=== PATIENT | male | born 1945 | race Caucasian/White ===

== ENCOUNTER 2020-08-31 15:21 | Emergency (ER) | payer MEDICARE, MEDICAID, SELFPAY ==
[2020-08-31 17:39] VITALS: BP 132/75; PULSE 60; RESP 18; TEMP 36.6; O2SAT 97; BMI 29.9
--- NOTE | 2020-08-31 18:47 | XR_ITS ---
EXAMINATION: XR CHEST CLINICAL INFORMATION: Right upper back pain COMPARISON: 12/26/2017 TECHNIQUE: Frontal view of the chest was obtained. FINDINGS: No focal consolidation, pulmonary edema, or pleural effusion. Stable cardiomediastinal silhouette. IMPRESSION: No acute cardiac pulmonary findings. Redemonstration of a calcified granuloma at the left lung base.
--- NOTE | 2020-08-31 18:47 | ECG_ITS ---
Test Reason : FALL Blood Pressure : / mmHG Vent. Rate : 071 BPM Atrial Rate : 071 BPM P-R Int : 174 ms QRS Dur : 156 ms QT Int : 450 ms P-R-T Axes : 062 037 199 degrees QTc Int : 489 ms Normal sinus rhythm with sinus arrhythmia Left bundle branch block Abnormal ECG When compared with ECG of 26-DEC-2017 15:53, No significant changes seen Referred By: Jacquie Carpenter Electronically Signed By:LIMA BRUCE MD
--- NOTE | 2020-08-31 18:48 | CT_ITS ---
EXAMINATION: CT ABDOMEN AND PELVIS WITHOUT CONTRAST CLINICAL INFORMATION: Right upper quadrant pain. COMPARISON: None TECHNIQUE: Multidetector volumetric imaging was performed from the superior aspect of the liver through the pubic symphysis. Sagittal and coronal reformatted images were obtained on the technologist's workstation. This CT examination was performed using dose optimization techniques as appropriate, variously including the following: *Automated exposure control. *Adjustment of mA and/or kV according to patient size (this includes techniques or standardized protocols for targeted exams where dose is matched to indication/reason for exam; i.e. extremities or head). *Use of iterative reconstruction technique. DLP: 476 mGy-cm FINDINGS: LUNG BASES: The visualized lung bases are unremarkable. LIVER, GALLBLADDER, AND BILIARY TREE: The liver is normal in size, shape, and attenuation. No focal hepatic lesion or biliary ductal dilatation is present. The gallbladder contains a single calcified 3 mm stone dependent in the region of the neck but is otherwise unremarkable with no evidence of wall thickening or obvious pericholecystic inflammatory changes. PANCREAS: Unremarkable. SPLEEN: Unremarkable. ADRENAL GLANDS: Unremarkable. KIDNEYS AND URETERS: The kidneys are normal in size, shape, and attenuation. No hydronephrosis, hydroureter, or calculi seen. No perinephric stranding. BLADDER: There is a tiny left posterior bladder diverticulum. The bladder is mildly trabeculated. No bladder masses are seen. GASTROINTESTINAL TRACT: Small hiatal hernia is present. Scattered colonic diverticula are present without diverticulitis. The small and large bowel are unremarkable. The appendix is unremarkable. ABDOMINAL WALL: No significant hernia is appreciated. LYMPH NODES: No retroperitoneal lymphadenopathy. VASCULAR: Unremarkable. PELVIC VISCERA: Three markers are present in the prostate. The seminal vesicles appear normal. OSSEOUS STRUCTURES: Mild degenerative change is present in the spine. No bony destructive lesions seen. IMPRESSION: 1. A single radiopaque gallstone is present without evidence of cholecystitis. 2. Incidental note made of tiny left bladder diverticulum, small hiatal hernia and colonic diverticulosis without diverticulitis.
--- NOTE | 2020-08-31 18:52 | ED.ABDPAIN ---
HPI - Abdominal Pain General Chief Complaint: General Medical Stated Complaint: right side pain Time Seen by Provider: 08/31/20 18:46 Source: patient Mode of arrival: ambulatory Limitations: no limitations History of Present Illness HPI narrative: 74-year-old male presents with gradual onset of right-sided chest pain and right-sided upper back pain, with right upper quadrant abdominal pain. This pain is been constant since Onset last night. the pain does not change with positioning, and has not been relieved and radiates into his entire abdomen starting on the right upper quadrant and moving outward. he denies palpitations, shortness of breath, shortness breath on exertion, dysuria, hematuria, nausea, vomiting, diarrhea, constipation, fevers, chills, denies illicit drug use and tobacco use. He does not describe a headache, Trauma, falls, changes in vision, dizziness, weakness, and lightheadedness. MD elicited complaint: abdominal pain and other ( right upper chest pain, right back pain) Pertinent past history: none Onset (ago): day(s) ( 1) Pain Consistency: constant Location: chest, RUQ and other ( right back) Severity: moderate Pain scale (0-10): 6 Quality: aching and sharp Exacerbating factors: eating and movement Relieving factors: nothing Associated symptoms: denies other symptoms Related Data Previous Rx's Medication Instructions Recorded ondansetron HCl [Zofran] 4 mg PO Q8H PRN #10 tab 08/31/20 oxycodone 5 mg PO Q8H PRN #10 tab 08/31/20 Allergies Allergy/AdvReac Type Severity Reaction Status Date / Time pineapple [PINEAPPLE] Allergy Mild RASH Verified 08/29/20 14:38 Pork/Porcine Containing Allergy Mild ABDOMINAL Verified 08/29/20 14:38 Products PAIN, [PORK/PORCINE CONTAINING VOMITING PRODUCTS] codeine [CODEINE] Allergy Unknown UNK Verified 08/29/20 14:38 Review of Systems Review of Systems Constitutional: No Weight loss, No Fever, No Chills, No Night Sweats, No Fatigue, No Malaise ENT/Mouth: No Hearing loss, No Ear Pain, No Nasal Congestion, No Sinus Pain, No Hoarseness, No sore throat, No Rhinorrhea, No Swallowing Difficulty Eyes: No Eye Pain, No Swelling, No Redness, No Foreign Body, No Discharge, No Vision Changes Cardiovascular: positive right-sided chest pain, right-sided back pain, No SOB, No Dyspnea on Exertion, No Orthopnea, No Edema, No Palpitations Respiratory: No Cough, No Sputum, No Wheezing, No Smoke Exposure, No Dyspnea Gastrointestinal: Positive right upper quadrant pain radiating outward to the rest of abdomen, no N, V, D, constipation, No Hematochezia, No Melena Genitourinary: no irregular bleeding, No Dysuria, No Urinary Frequency, No Hematuria, No Urinary Incontinence, No Urgency, No Flank Pain, No Urinary Flow Changes, No Hesitancy Musculoskeletal: No joint pain, No Myalgias, No Joint Swelling Skin: No Skin Lesions, No rash Neuro: No Weakness, No Numbness, No Paresthesias, No Loss of Consciousness, No Dizziness, No Headache Psych: No Anxiety/Panic, No Depression, No SI/HI/AH/VH, No Social Issues, Heme/Lymph: No Bruising, No Bleeding,No Lymphadenopathy Endocrine: No Polyuria, No Polydipsia, No Temperature Intolerance Physical Exam Vital Signs: Vital Signs: Vital Signs Temp Pulse Resp BP Pulse Ox 08/31/20 21:38 97.9 F 64 18 145/77 H 99 08/31/20 17:39 97.9 F 60 18 132/75 97 Body Mass Index 29.9 Appearance: Alert. Oriented X3. No acute distress. Eyes: Pupils equal, round and reactive to light. ENT: Pharynx normal. Neck: Normal inspection. Neck supple. CVS: Normal heart rate and rhythm. Pulses normal. Respiratory: No respiratory distress. Breath sounds normal. Abdomen: mildly distended, right upper quadrant pain and tenderness on deep palpation. Skin: Skin warm and dry. Normal skin color. Normal skin turgor. Extremities: No lower extremity edema. No lower extremity edema. Neuro: Oriented X 3. No motor deficit. No sensory deficit. Course Course Course Narrative: Patient describes right upper quadrant, right chest, right back pain, has positive Dodson sign, negative psoas obturator and rebound tenderness. We will order CT scan of the abdomen to rule out acute abdomen, cholecystitis, cholelithiasis. Reevaluation(s) Reevaluation #1: BUN 20, creatinine 1.47, mild kidney injury, we will resuscitate with fluids. Troponin is 12.6, bilirubin 1.4. Patient does have known kidney disease, uses furosemide daily for bilateral lower extremity edema. CT does show cholelithiasis without cholecystitis. Detailed discussion with patient regarding plan of care for him to follow-up with surgery as an outpatient. He did verbalize understanding of and agrees to plan of care. workforce management analyst utilized for all correspondence. Google translate utilized for discharge instructions. Time: 20:02 MDM - Abdominal Pain Differential Diagnosis Differential diagnosis: Likely abdominal pain, aortic dissection, acute appendicitis, calculus of kidney and pancreatitis Differential diagnosis narrative:: ACS, pneumonia, cholecystitis, cholelithiasis Medical Records Attestation: I reviewed the patient's medical records. Lab Data Attestation: I reviewed the patient's lab results. Result diagrams: 08/31/20 19:08/31/20 19: Labs: Lab Results 08/31/20 08/31/20 08/31/20 Range/Units 19:02 19: 19:02 WBC 7.9 (4.8-10.8) X10*3/uL RBC 5.26 (4.60-5.80) X10*6/uL Hgb 14.3 (14.0-18.0) g/dl Hct 44.3 (42-52) % MCV 84.2 (80-98) fL MCH 27.2 (27.0-33.0) pg MCHC 32.3 (31.0-36.0) g/dl RDW 14.6 (11.0-16.0) % Plt Count 243 (160-400) X10*3/uL MPV 10.9 (9.4-12.4) fL Immature Gran % (Auto) 0.3 (0.0-0.4) % Neut % (Auto) 66.6 (45-73) % Lymph % (Auto) 22.5 (20-40) % [place] % (Auto) 8.2 (2-11) % Eos % (Auto) 1.6 (0-4) % Baso % (Auto) 0.8 (0-2) % Lymph # (Auto) 1.8 (1.2-4.9) X10*3/uL [place] # (Auto) 0.7 (0.1-1.2) X10*3/uL Eos # (Auto) 0.1 (0.0-0.4) X10*3/uL Baso # (Auto) 0.1 (0.0-0.2) X10*3/uL Abs Immat Gran (auto) 0.02 (0.00-0.03) X10*3/uL Absolute Neuts (auto) 5.3 (2.0-8.3) X10*3/uL Absolute Nucleated RBC 0.000 (0.0-0.012) X10*3/uL Nucleated RBC % (auto) 0.0 (0.0-0.2) /100WBC PT 14.1 H (10.8-13.0) SEC INR 1.2 H (0.9-1.1) Sodium 141 (135-145) mmol/L Potassium 3.9 (3.3-5.1) mmol/l Chloride 104 (96-108) mmol/L Carbon Dioxide 30 H (22-29) mmol/L Anion Gap 11 L (12-20) BUN 20 H (9-16) mg/dL Creatinine 1.47 H (0.5-1.4) mg/dL Estim Creat Clear Calc 43.3 Estimated GFR 47 Random Glucose 125 H (60-115) mg/dL Calcium 10.1 (8.4-10.2) mg/dL Magnesium 1.9 (1.6-2.6) mg/dL Total Bilirubin 1.4 H (0.0-1.0) mg/dL Direct Bilirubin 0.6 H (0.0-0.5) mg/dL AST 24 (5-37) U/L ALT 31 (0-40) U/L Alkaline Phosphatase 78 (39-117) U/L Troponin I High Sens (<3.5-35.0) ng/L Total Protein 6.8 (6.5-8.0) g/dL Albumin 4.2 (3.5-5.0) g/dL Lipase 39 (8-78) U/L 08/31/20 Range/Units 19:02 WBC (4.8-10.8) X10*3/uL RBC (4.60-5.80) X10*6/uL Hgb (14.0-18.0) g/dl Hct (42-52) % MCV (80-98) fL MCH (27.0-33.0) pg MCHC (31.0-36.0) g/dl RDW (11.0-16.0) % Plt Count (160-400) X10*3/uL MPV (9.4-12.4) fL Immature Gran % (Auto) (0.0-0.4) % Neut % (Auto) (45-73) % Lymph % (Auto) (20-40) % [place] % (Auto) (2-11) % Eos % (Auto) (0-4) % Baso % (Auto) (0-2) % Lymph # (Auto) (1.2-4.9) X10*3/uL [place] # (Auto) (0.1-1.2) X10*3/uL Eos # (Auto) (0.0-0.4) X10*3/uL Baso # (Auto) (0.0-0.2) X10*3/uL Abs Immat Gran (auto) (0.00-0.03) X10*3/uL Absolute Neuts (auto) (2.0-8.3) X10*3/uL Absolute Nucleated RBC (0.0-0.012) X10*3/uL Nucleated RBC % (auto) (0.0-0.2) /100WBC PT (10.8-13.0) SEC INR (0.9-1.1) Sodium (135-145) mmol/L Potassium (3.3-5.1) mmol/l Chloride (96-108) mmol/L Carbon Dioxide (22-29) mmol/L Anion Gap (12-20) BUN (9-16) mg/dL Creatinine (0.5-1.4) mg/dL Estim Creat Clear Calc Estimated GFR Random Glucose (60-115) mg/dL Calcium (8.4-10.2) mg/dL Magnesium (1.6-2.6) mg/dL Total Bilirubin (0.0-1.0) mg/dL Direct Bilirubin (0.0-0.5) mg/dL AST (5-37) U/L ALT (0-40) U/L Alkaline Phosphatase (39-117) U/L Troponin I High Sens 12.6 (<3.5-35.0) ng/L Total Protein (6.5-8.0) g/dL Albumin (3.5-5.0) g/dL Lipase (8-78) U/L Imaging Data CT scan - abdomen: Attestation: I personally reviewed and interpreted this imaging study as follows: Radiologist's impression: FINDINGS: LUNG BASES: The visualized lung bases are unremarkable. LIVER, GALLBLADDER, AND BILIARY TREE: The liver is normal in size, shape, and attenuation. No focal hepatic lesion or biliary ductal dilatation is present. The gallbladder contains a single calcified 3 mm stone dependent in the region of the neck but is otherwise unremarkable with no evidence of wall thickening or obvious pericholecystic inflammatory changes. PANCREAS: Unremarkable. SPLEEN: Unremarkable. ADRENAL GLANDS: Unremarkable. KIDNEYS AND URETERS: The kidneys are normal in size, shape, and attenuation. No hydronephrosis, hydroureter, or calculi seen. No perinephric stranding. BLADDER: There is a tiny left posterior bladder diverticulum. The bladder is mildly trabeculated. No bladder masses are seen. GASTROINTESTINAL TRACT: Small hiatal hernia is present. Scattered colonic diverticula are present without diverticulitis. The small and large bowel are unremarkable. The appendix is unremarkable. ABDOMINAL WALL: No significant hernia is appreciated. LYMPH NODES: No retroperitoneal lymphadenopathy. VASCULAR: Unremarkable. PELVIC VISCERA: Three markers are present in the prostate. The seminal vesicles appear normal. OSSEOUS STRUCTURES: Mild degenerative change is present in the spine. No bony destructive lesions seen. IMPRESSION: 1. A single radiopaque gallstone is present without evidence of cholecystitis. 2. Incidental note made of tiny left bladder diverticulum, small hiatal hernia and colonic diverticulosis without diverticulitis. Chest x-ray: Attestation: I personally reviewed and interpreted this imaging study as follows: Radiologist's impression: FINDINGS: No focal consolidation, pulmonary edema, or pleural effusion. Stable cardiomediastinal silhouette. IMPRESSION: No acute cardiac pulmonary findings. Redemonstration of a calcified granuloma at the left lung base. ECG Data Attestation: I personally reviewed and interpreted this ECG as follows: ECG interpretation date: 08/31/20 ECG interpretation time: 18:50 Prior ECG tracings: available for review Interpretation: Vent. Rate : 071 BPM Atrial Rate : 071 BPM P-R Int : 174 ms QRS Dur : 156 ms QT Int : 450 ms P-R-T Axes : 062 037 199 degrees QTc Int : 489 ms Normal sinus rhythm with sinus arrhythmia Left bundle branch block Abnormal ECG When compared with ECG of 26-DEC-2017 15:53, T wave inversion more evident in Inferior leads Discharge Plan Discharge Clinical Impression: Cholelithiasis Qualifiers: Cholelithiasis location: gallbladder Cholecystitis presence: without cholecystitis Biliary obstruction: without biliary obstruction Qualified Code(s): K80.20 - Calculus of gallbladder without cholecystitis without obstruction Patient Disposition: Home, Self-Care Instructions: Gallstones (ED) Additional Instructions: you were evaluated for right upper quadrant, right chest, and right back pain. CT scan of the abdomen shows a gallstone in the gallbladder without inflammation of the gallbladder. Please follow-up with with Dr. Colon. Call and make an appointment as you may need to have your gallbladder surgically removed. We prescribed oxycodone for pain management. This medication is a narcotic and has high risk for addiction and abuse. Do not drive or operate machinery while taking this medication. This medication may increased risk for falls, cause drowsiness, and constipation. Drink plenty of fluids. Use Colace or MiraLax as needed to keep stool soft. We prescribe Zofran. This medication is for nausea. Please take this medication as directed. If pain worsens or if you cannot control your nausea or vomiting please return to the emergency department immediately. Thank you for choosing this emergency department for evaluation. Please follow-up with primary care physician as needed. Return to the emergency department for any new, concerning, or worsening symptoms. Prescriptions: New oxycodone 5 mg tablet 5 mg PO Q8H PRN (Reason: pain) Qty: 10 RF: 0 ondansetron HCl [Zofran] 4 mg tablet 4 mg PO Q8H PRN (Reason: nausea and vomiting) Qty: 10 RF: 0 Referrals: Philippe Colon MD [Physician] - 2 days ( cholelithiasis without cholecystitis.) Interventions: ED Discharge Assessment Last Done: 08/31/20 22:17 Discharge Date/Time: 08/31/20 22:26 [facility] Past Medical History Attestation statement: The following information was validated with the patient. Medical History Prostate CA Stroke Surgical History History of colonoscopy History of elbow surgery History of inguinal hernia repair Hx of appendectomy S/P TURP Family History Family History Father Medical history unknown Mother Alcoholic cirrhosis CVD (cardiovascular disease) Brother Prostate cancer Maternal Uncle Prostate cancer Social History Social History Advance Directives: No Advance Directives Information Provided: No
[2020-08-31 19:06] LABS: MANUAL DIFF FLAG NO
[2020-08-31 19:08] LABS: Basophils Absolute Auto 0.1 X10*3/uL (0.0-0.2); Basophils Percent Auto 0.8 % (0-2); Eosinophils Absolute Auto 0.1 X10*3/uL (0.0-0.4); Eosinophils Percent Auto 1.6 % (0-4); Hematocrit 44.3 % (42-52); Hemoglobin 14.3 g/dl (14.0-18.0); Imm Gran Abs Auto 0.02 X10*3/uL (0.00-0.03); Imm Gran Pct Auto 0.3 % (0.0-0.4); Lymphocytes Absolute Auto 1.8 X10*3/uL (1.2-4.9); Lymphocytes Percent Auto 22.5 % (20-40); Mean Corpuscular HGB Conc 32.3 g/dl (31.0-36.0); Mean Corpuscular Hemoglobin 27.2 pg (27.0-33.0); Mean Corpuscular Volume 84.2 fL (80-98); Mean Platelet Volume 10.9 fL (9.4-12.4); Monocytes Absolute Auto 0.7 X10*3/uL (0.1-1.2); Monocytes Percent Auto 8.2 % (2-11); Neutrophils Absolute Auto 5.3 X10*3/uL (2.0-8.3); Neutrophils Percent Auto 66.6 % (45-73); Platelet Count 243 X10*3/uL (160-400); Red Blood Count 5.26 X10*6/uL (4.60-5.80); Red Cell Distribution Width 14.6 % (11.0-16.0); White Blood Count 7.9 X10*3/uL (4.8-10.8)
[2020-08-31 19:13] LABS: INTERNATIONAL NORM RATIO 1.2 (0.9-1.1); Prothrombin Time 14.1 SEC (10.8-13.0)
[2020-08-31 19:35] LABS: Alanine Aminotransferase 31 U/L (0-40); Albumin Level 4.2 g/dL (3.5-5.0); Alkaline Phosphatase 78 U/L (39-117); Anion Gap 11 (12-20); Aspartate Amino Transferase 24 U/L (5-37); Bilirubin Direct 0.6 mg/dL (0.0-0.5); Bilirubin Total 1.4 mg/dL (0.0-1.0); Blood Urea Nitrogen 20 mg/dL (9-16); Calcium 10.1 mg/dL (8.4-10.2); Carbon Dioxide 30 mmol/L (22-29); Chloride 104 mmol/L (96-108); Creatinine Clr Calc Pharmacy 43.3; Estimated Glomerular Filt Rate 47; Glucose Random 125 mg/dL (60-115); Lipase 39 U/L (8-78); Magnesium 1.9 mg/dL (1.6-2.6); Potassium 3.9 mmol/l (3.3-5.1); Sodium 141 mmol/L (135-145); Total Protein 6.8 g/dL (6.5-8.0)
[2020-08-31 19:37] LABS: Troponin-I High Sensitivity 12.6 ng/L (<3.5-35.0)
[2020-08-31] MEDS: 0.9 % Sodium Chloride 1,000 ML 999 ML IVCONT (20:41)
[2020-08-31] MEDS: oxyCODONE HCl Immed Release 5 MG TABLET PO (21:32)
[2020-08-31 21:38] VITALS: BP 145/77; PULSE 64; RESP 18; TEMP 36.6; O2SAT 99
== END 2020-08-31 22:26 | disposition home or self-care (01) ==
PROVIDERS: Nurse Practitioner Family; Emergency Provider Emergency Medicine Emergency Medical Services; PCP Internal Medicine
DX: K80.50 Calculus of bile duct without cholangitis or cholecystitis without obstruction (principal); I10 Essential (primary) hypertension; K21.9 Gastro-esophageal reflux disease without esophagitis; Z85.46 Personal history of malignant neoplasm of prostate; Z79.899 Other long term (current) drug therapy
CPT/HCPCS: 36415; 71045; 74176; 80048; 80076; 83690; 83735; 84484; 85025; 85610; 93005; 96360; 99283; 99284

== ENCOUNTER → 2020-09-02 09:01 | Outpatient (REF) | payer MEDICARE, MEDICAID, SELFPAY ==
--- NOTE | 2020-09-02 09:30 | CA_ITS ---
Transthoracic Echocardiogram Patient (Last, First, Middle): Christiano Jensen, Gender: Male Date of : 1945 Age: 74 Procedure Date: 09/02/2020 Procedure Type: Transthoracic Echocardiogram Location: OP Height: 165.1 cm Weight: 77.11 kg BSA: 1.85 m2 Heart Rate: bpm BP: 98 / 53 mmHg Performance Manager: SHAN Referring MD: Sg Horton MD Symptoms: Short of breath, LBBB Conclusions: - The left ventricular systolic function is normal. The visually estimated ejection fraction is between 55-60%. - No obvious valvular pathology seen on this study. Findings Left Ventricle Normal left ventricular cavity size. There is mildly increased left ventricular wall thickness. The left ventricular systolic function is normal. The visually estimated ejection fraction is between 55-60%. There is no evidence of regional wall motion abnormalities. Evidence suggests grade I (mild) diastolic dysfunction. Right Ventricle Normal right ventricular cavity size and systolic function. Atria The left atrium is normal in size. The right atrium is normal in size. Aortic Valve There is a normal trileaflet aortic valve. There is no aortic valve stenosis. There is no aortic valve regurgitation. Mitral Valve The mitral valve appears normal. There is trace mitral valve regurgitation. There is no mitral valve stenosis. Pulmonic Valve The pulmonic valve was not well visualized. Tricuspid Valve Normal tricuspid valve structure. There is trace tricuspid valve regurgitation. Tricuspid regurgitation envelope is inadequate for calculation of right ventricular systolic pressure. Great Vessels The aortic annulus, sinuses of valsalva, and asc aorta are normal in size. Venous The inferior vena cava is normal in size and collapses greater than 50% with inspiration. Pericardium/Pleural There is no evidence of pericardial effusion. Prior Study Comparison No change compared to prior study dated: 08/27/2019. Recommendations, Care & Conclusions No obvious valvular pathology seen on this study. Measurements 2D Linear Measurements IVSd: 1.38 0.6-0.9/0.6-1.0 cm LVIDd: 4.19 3.9-5.3/4.2-5.9 cm LVIDs: 3.01 2.0-3.6 cm LVPWd: 1.21 0.7-1.1 cm Ao Root: 3.06 2.1-3.5 cm LV Mass: 247.48 67-162/88-224 g LVOT Diam: 2.01 3.0+(-)1.3 cm Mitral Valve MV Pk E: 0.52 MV PK A: 0.65 MV Decel Time: 338.20 E/A: 0.80 E'Lateral: 0.09 E'Medial: 0.06 E/E' Med: 7.40 E/E' Lat: 7.40 Decel [place]: 1.54 Aortic Valve AoV Pk Greg: 1.11 AoV Pk Grad: 4.93 LVOT LVOT Pk Greg: 1.03 LVOT Mn Greg: 0.65 LVOT VTI: 0.18 LVOT Pk Grad: 4.26 LVOT Mn Grad: 2.10 LVOT Diam: 2.01 LVOT Area: 3.16 Diastolic Function MV Pk E: 0.52 MV Pk A: 0.65 E/A: 0.80 E'Medial: 0.06 E/E' Med: 7.40 E' Laterial: 0.09 E/E' Lat: 7.40 Tricuspid Valve RA Press: 3.00 Great Vessels Aorta Ao Root-2D: 3.06 2.0-3.7 cm Ao Asc: 3.32 2.1-3.4 cm Updated in Other Vendor System with Status of Final Sg Horton MD electronically signed on 09/03/2020 11:52:54 AM with status of Final
== END ==
LOC: HO.CARD 09:01
PROVIDERS: PCP Internal Medicine; Visit Provider Internal Medicine
DX: R06.02 Shortness of breath (principal); I44.7 Left bundle-branch block, unspecified
CPT/HCPCS: 93306

== ENCOUNTER → 2020-09-03 09:01 | Outpatient (BNVA) | payer MEDICARE, MEDICAID, SELFPAY | PROVIDERS: PCP Internal Medicine; Referring Provider Internal Medicine; Visit Provider Surgery | DX: K80.20 Calculus of gallbladder without cholecystitis without obstruction (principal); K42.9 Umbilical hernia without obstruction or gangrene | CPT/HCPCS: 99204 ==

== ENCOUNTER 2020-09-09 10:10 | Day surgery (SDC) | payer MEDICARE, MEDICAID, SELFPAY ==
--- NOTE | 2020-09-08 15:40 | HO.ANESPROP2 ---
Documented by User: Za Ott 09/08/20 15:45 HPI - Anesthesia Eval Consult details Narrative: 74 yo M for lap corinne PMFSH Past Medical History Medical History BPH (benign prostatic hyperplasia) Cholelithiasis Essential hypertension Gallstone GERD (gastroesophageal reflux disease) Leg edema Lumbar degenerative disc disease Prostate CA Pure hypercholesterolemia Stroke Umbilical hernia Urinary incontinence Family History Family History Father Medical history unknown Mother Alcoholic cirrhosis CVD (cardiovascular disease) Brother Prostate cancer Maternal Uncle Prostate cancer Surgical History Surgical History History of colonoscopy History of elbow surgery History of inguinal hernia repair Hx of appendectomy S/P TURP Social History Social History Smoking Status: Never smoker Use of substances other than those prescribed or required for medical reasons: No Advance Directives: No Advance Directives Information Provided: Yes Meds Allergies Allergy/AdvReac Type Severity Reaction Status Date / Time pineapple [PINEAPPLE] Allergy Mild RASH Verified 09/03/20 09:18 Pork/Porcine Containing Allergy Mild ABDOMINAL Verified 09/03/20 09:18 Products PAIN, [PORK/PORCINE CONTAINING VOMITING PRODUCTS] codeine [CODEINE] Allergy Unknown UNK Verified 09/03/20 09:18 Home Medications Medication Instructions Recorded Confirmed Type atorvastatin 40 mg tablet mg PO 09/01/20 09/01/20 History cyclobenzaprine 10 mg tablet mg PO 09/01/20 09/01/20 History finasteride 5 mg tablet mg PO 09/01/20 09/01/20 History furosemide 20 mg tablet mg PO 09/01/20 09/01/20 History lisinopril 30 mg tablet mg PO 09/01/20 09/01/20 History oxybutynin chloride 10 mg 10 mg PO DAILY 09/01/20 09/01/20 History tablet,extended release 24 hr tamsulosin 0.4 mg capsule mg PO 09/01/20 09/01/20 History ondansetron HCl 4 mg tablet 4 mg PO Q8H 09/03/20 History oxycodone 5 mg tablet mg PO 09/03/20 History Exam Exam Date and Time: September 08, 2020 1540 Pertinent Lab Results Pertinent Lab Results: Laboratory Tests 08/31/20 08/31/20 19:02 19:02 WBC 7.9 Hgb 14.3 Hct 44.3 Plt Count 243 Sodium 141 Potassium 3.9 Chloride 104 BUN 20 H Creatinine 1.47 H Narrative Narrative: ECHO 08/2019: LVEF 50-55%, paradoxical septal motion with LBBB Stress 2019: without anginal symptoms, without arrythmia, normotensive response, nondiagnostic EKG (no nuclear images avail) EKG DOS Assessment and Plan Assessment Anesthesia Assessment: Chart Reviewed Documented by User: Norah Mcfadden 09/09/20 11:03 PMFSH Past Medical History Medical History BPH (benign prostatic hyperplasia) Cholelithiasis Essential hypertension Gallstone GERD (gastroesophageal reflux disease) Leg edema Lumbar degenerative disc disease Prostate CA Pure hypercholesterolemia Stroke Umbilical hernia Urinary incontinence Family History Family History Father Medical history unknown Mother Alcoholic cirrhosis CVD (cardiovascular disease) Brother Prostate cancer Maternal Uncle Prostate cancer Surgical History Surgical History History of colonoscopy History of elbow surgery History of inguinal hernia repair Hx of appendectomy S/P TURP Social History Social History Smoking Status: Never smoker Use of substances other than those prescribed or required for medical reasons: No Advance Directives: No Advance Directives Information Provided: Yes Meds Allergies Allergy/AdvReac Type Severity Reaction Status Date / Time pineapple [PINEAPPLE] Allergy Mild RASH Verified 09/03/20 09:18 Pork/Porcine Containing Allergy Mild ABDOMINAL Verified 09/03/20 09:18 Products PAIN, [PORK/PORCINE CONTAINING VOMITING PRODUCTS] codeine [CODEINE] Allergy Unknown UNK Verified 09/03/20 09:18 Home Medications Medication Instructions Recorded Confirmed Type atorvastatin 40 mg tablet mg PO 09/01/20 09/01/20 History cyclobenzaprine 10 mg tablet mg PO 09/01/20 09/01/20 History finasteride 5 mg tablet mg PO 09/01/20 09/01/20 History furosemide 20 mg tablet mg PO 09/01/20 09/01/20 History lisinopril 30 mg tablet mg PO 09/01/20 09/01/20 History oxybutynin chloride 10 mg 10 mg PO DAILY 09/01/20 09/01/20 History tablet,extended release 24 hr tamsulosin 0.4 mg capsule mg PO 09/01/20 09/01/20 History ondansetron HCl 4 mg tablet 4 mg PO Q8H 09/03/20 History oxycodone 5 mg tablet mg PO 09/03/20 History Exam Airway Mallampati Class: II TM Dist: >3cm Neck ROM: Limited Denture: Lower Partial: Upper Heart: RRR Lungs: CTA Assessment and Plan Assessment Anesthesia Assessment: Anesthesia Plan Discussed and Chart Reviewed Final Anesthetic Review NPO: Yes ASA Class: III Final Preanesthetic Review: No Changes in Pt Med Stat, Meds/Allgs Chart Reviewed, Consent Obtained/Reviewed and Anes Risks/Benef Reviewed Patient Risk: Intermediate Procedure Risk: Intermediate Assessment/Block/Sedation in SS: Assess/Block/Sedation-SS Anesthetic Plan Anesthetic Plan: GA Disposition: Standard PACU
[2020-09-09] VITALS (9 sets, daily range): BP systolic 107–136; BP diastolic 68–75; PULSE 59–77; RESP 16–20; TEMP 36.4–36.6; O2SAT 96–99; BMI 28.3
--- NOTE | 2020-09-09 | ECG_ITS ---
Test Reason : CARDIAC HX HTN Blood Pressure : / mmHG Vent. Rate : 056 BPM Atrial Rate : 056 BPM P-R Int : 202 ms QRS Dur : 154 ms QT Int : 448 ms P-R-T Axes : 079 006 160 degrees QTc Int : 432 ms Sinus bradycardia Left bundle branch block Abnormal ECG When compared with ECG of 31-AUG-2020 18:50, Heart rate has decreased Referred By: Za Ott Electronically Signed By:LIMA BRUCE MD
--- NOTE | 2020-09-09 10:53 | MHC.SHP ---
Pre-Procedural Eval Section B Chief Complaint: Gallstone Allergies: Allergies Allergy/AdvReac Type Severity Reaction Status Date / Time pineapple [PINEAPPLE] Allergy Mild RASH Verified 09/03/20 09:18 Pork/Porcine Containing Allergy Mild ABDOMINAL Verified 09/03/20 09:18 Products PAIN, [PORK/PORCINE CONTAINING VOMITING PRODUCTS] codeine [CODEINE] Allergy Unknown UNK Verified 09/03/20 09:18 Plan Patient has been examined and remains a candidate for the planned procedure
--- NOTE | 2020-09-09 11:03 | HO.ANESPROP2 ---
FORM[facility]LY [facility], [facility] Past Medical History Medical History BPH (benign prostatic hyperplasia) Cholelithiasis Essential hypertension Gallstone GERD (gastroesophageal reflux disease) Leg edema Lumbar degenerative disc disease Prostate CA Pure hypercholesterolemia Stroke Umbilical hernia Urinary incontinence Family History Family History Father Medical history unknown Mother Alcoholic cirrhosis CVD (cardiovascular disease) Brother Prostate cancer Maternal Uncle Prostate cancer Surgical History Surgical History History of colonoscopy History of elbow surgery History of inguinal hernia repair Hx of appendectomy S/P TURP Social History Social History Smoking Status: Never smoker Use of substances other than those prescribed or required for medical reasons: No Advance Directives: No Advance Directives Information Provided: Yes Meds Allergies Allergy/AdvReac Type Severity Reaction Status Date / Time pineapple [PINEAPPLE] Allergy Mild RASH Verified 09/03/20 09:18 Pork/Porcine Containing Allergy Mild ABDOMINAL Verified 09/03/20 09:18 Products PAIN, [PORK/PORCINE CONTAINING VOMITING PRODUCTS] codeine [CODEINE] Allergy Unknown UNK Verified 09/03/20 09:18 Home Medications Medication Instructions Recorded Confirmed Type atorvastatin 40 mg tablet mg PO 09/01/20 09/01/20 History cyclobenzaprine 10 mg tablet mg PO 09/01/20 09/01/20 History finasteride 5 mg tablet mg PO 09/01/20 09/01/20 History furosemide 20 mg tablet mg PO 09/01/20 09/01/20 History lisinopril 30 mg tablet mg PO 09/01/20 09/01/20 History oxybutynin chloride 10 mg 10 mg PO DAILY 09/01/20 09/01/20 History tablet,extended release 24 hr tamsulosin 0.4 mg capsule mg PO 09/01/20 09/01/20 History ondansetron HCl 4 mg tablet 4 mg PO Q8H 09/03/20 History oxycodone 5 mg tablet mg PO 09/03/20 History Exam Exam Date and Time: September 09, 2020 1103 Height,Weight and Vital Signs: Height 5 ft 5 in Weight 77.111 kg Last Vital Signs Temp 97.8 F 09/09/20 10:56 Pulse 62 09/09/20 10:56 Resp 18 09/09/20 10:56 BP 136/75 09/09/20 10:56 Pulse Ox 99 09/09/20 10:56 Assessment and Plan Assessment Anesthesia Assessment: Anesthesia Plan Discussed and Chart Reviewed Final Anesthetic Review NPO: Yes ASA Class: III Final Preanesthetic Review: No Changes in Pt Med Stat, Consent Obtained/Reviewed and Anes Risks/Benef Reviewed Patient Risk: Intermediate Procedure Risk: Intermediate Assessment/Block/Sedation in SS: Assess/Block/Sedation-SS Anesthetic Plan Anesthetic Plan: GA Disposition: Standard PACU
[2020-09-09] MEDS: Lactated Ringers 1,000 ML 100 ML IVCONT (11:16)
--- NOTE | 2020-09-09 11:36 | HO.ANESPROP2 ---
[facility] Past Medical History Medical History BPH (benign prostatic hyperplasia) Cholelithiasis Essential hypertension Gallstone GERD (gastroesophageal reflux disease) Leg edema Lumbar degenerative disc disease Prostate CA Pure hypercholesterolemia Stroke Umbilical hernia Urinary incontinence Family History Family History Father Medical history unknown Mother Alcoholic cirrhosis CVD (cardiovascular disease) Brother Prostate cancer Maternal Uncle Prostate cancer Surgical History Surgical History History of colonoscopy History of elbow surgery History of inguinal hernia repair Hx of appendectomy S/P TURP Social History Social History Smoking Status: Never smoker Use of substances other than those prescribed or required for medical reasons: No Advance Directives: No Advance Directives Information Provided: Yes Meds Allergies Allergy/AdvReac Type Severity Reaction Status Date / Time pineapple [PINEAPPLE] Allergy Mild RASH Verified 09/03/20 09:18 Pork/Porcine Containing Allergy Mild ABDOMINAL Verified 09/03/20 09:18 Products PAIN, [PORK/PORCINE CONTAINING VOMITING PRODUCTS] codeine [CODEINE] Allergy Unknown UNK Verified 09/03/20 09:18 Home Medications Medication Instructions Recorded Confirmed Type atorvastatin 40 mg tablet mg PO 09/01/20 09/01/20 History cyclobenzaprine 10 mg tablet mg PO 09/01/20 09/01/20 History finasteride 5 mg tablet mg PO 09/01/20 09/01/20 History furosemide 20 mg tablet mg PO 09/01/20 09/01/20 History lisinopril 30 mg tablet mg PO 09/01/20 09/01/20 History oxybutynin chloride 10 mg 10 mg PO DAILY 09/01/20 09/01/20 History tablet,extended release 24 hr tamsulosin 0.4 mg capsule mg PO 09/01/20 09/01/20 History ondansetron HCl 4 mg tablet 4 mg PO Q8H 09/03/20 History oxycodone 5 mg tablet mg PO 09/03/20 History Exam Exam Date and Time: September 09, 2020 1136 Height,Weight and Vital Signs: Height 5 ft 5 in Weight 77.111 kg Last Vital Signs Temp 97.8 F 09/09/20 10:56 Pulse 62 09/09/20 10:56 Resp 18 09/09/20 10:56 BP 136/75 09/09/20 10:56 Pulse Ox 99 09/09/20 10:56 Assessment and Plan Assessment Anesthesia Assessment: Anesthesia Plan Discussed and Chart Reviewed Final Anesthetic Review NPO: Yes ASA Class: III Final Preanesthetic Review: No Changes in Pt Med Stat, Meds/Allgs Chart Reviewed, Consent Obtained/Reviewed and Anes Risks/Benef Reviewed Patient Risk: Intermediate Procedure Risk: Intermediate Assessment/Block/Sedation in SS: Assess/Block/Sedation-SS Anesthetic Plan Anesthetic Plan: GA Disposition: Standard PACU
--- NOTE | 2020-09-09 12:28 | PM.OP ---
Brief Operative Note Date of procedure: 09/09/20 Pre-op diagnosis: gallstones Post-op diagnosis: same Procedure: lap cholecystectomy Surgeon: Philippe Colon MD Anesthesia: GETA Emergency Department Physician: Esther Schmidt Estimated blood loss (mL): 25 Pathology: other (gallbladder) Condition: stable Disposition: PACU
--- NOTE | 2020-09-09 13:55 | OP_ITS ---
SURGEON: Philippe Colon MD INDICATIONS: The patient is a 74-year-old male, who has had right upper quadrant pain with imaging studies showing gallstones without cholecystitis. In view of the symptoms with the gallbladder disease as the likely etiology, he wanted to proceed with cholecystectomy. He understood the technique of laparoscopic cholecystectomy, the possibility of converting to open. He is aware of the risks, benefits, and alternatives. He had given consent. His family was involved with the decision making. PREOPERATIVE DIAGNOSIS: Gallstones, symptomatic. POSTOPERATIVE DIAGNOSIS: Gallstones, symptomatic Umbilical hernia PROCEDURE PERFORMED: Laparoscopic cholecystectomy and repair of umbilical hernia ESTIMATED BLOOD LOSS: COMPLICATIONS: ANESTHESIA: ASSISTANTS: Esther Schmidt PA-C. SPECIMENS: DESCRIPTION OF PROCEDURE: He was brought to the operating room, placed supine on the table under general anesthesia via endotracheal tube. The abdomen was prepped and draped in usual sterile fashion. A surgical time-out was done. The patient received Cefotan 2 g IV preoperatively. The patient also had hernia on the umbilicus. Therefore, decided to go through this hernia for my Roosevelt port. I made a short supraumbilical incision using blade #15. This was carried down to full-thickness skin and subcutaneous fat and I proceeded to identify the hernia sac. We lifted the umbilicus off the sac with sharp dissection and carefully dissected the sac sharply off the rest of the subcutaneous layer down to the fascial defect. We dissected the adhesions of the sac off the fascial edges until we were able to completely reduce this. The hernia was about 1.5 cm. I then inserted the Roosevelt port through this hernia. The patient was placed in head-up [id number] position. A 5/12 mm port introduced through a small incision in the epigastric area below the subcostal margin. A 5 mm port was introduced through a small incision below the subcostal margin along the anterior axillary line and the midclavicular line. Graspers were placed through these working ports. The patient was placed in at this point was head-up and [id number] position. We reflected the omentum and bowel loops away from the right upper quadrant until I was able to visualize the fundus of the gallbladder. A grasper applied on this and this was used to retract the gallbladder cephalad. By doing so, we were able to expose the anterior wall of the gallbladder and the path was visualized. Another grasper was placed on this and this was used to retract the gallbladder laterally. At this point, therefore, the gallbladder was being retracted in a cephalad and lateral fashion to put the cystic duct on stretch. We carefully dissected the cystic duct with the [place] dissector to define its confluence of the neck of the gallbladder. We stripped all fiber and fatty tissue around this area. By doing so, we were able to carefully achieve a critical view of the hepatocystic triangle. There were no other structures, except for what appeared to be a thin receptor mill representative of the cystic artery. With the confluence of the neck of the gallbladder towards the cystic duct confirmed, applied clips on the cystic duct with 2 clips being applied distally. The cystic duct was then transected between clips using Endo scissors. I applied clips again on the cystic artery and this was transected between clips as well. We retracted the gallbladder from the liver bed was carefully dissected across the hilum with blunt dissection until we were able to reach the interface of the gallbladder wall and the liver bed. I incised the peritoneum of the gallbladder using electrocautery spatula and proceeded to define a plane of dissection between the gallbladder and liver bed using a combination of blunt dissection with the tip of the spatula as well as electrocautery itself. We proceeded to separate the gallbladder from the liver bed with this technique all the way to the fundus until the entire gallbladder was completely . The gallbladder was retrieved through an Endobag through the umbilical incision. We had switched the camera port at this point. We switched the camera port back into the umbilicus. We lifted the liver edge and examined the liver bed. There was a little bit of small oozing area that we cauterized and achieved hemostasis. I examined all four quadrants and there was no other pathology except for adhesions in the right lower quadrant. We examined the area of dissection and subhepatic space. The clips were intact. There was no evidence of any bleeding or any bile leak. There was no evidence of any bowel injury. Once hemostasis was confirmed, proceeded to desufflate the port sites. All ports were removed. The umbilical port being removed last. The fascia of the umbilical incisions were closed with [id number] Dexon 0 stitch in effect closing the hernia defect as well.. Skinclosure was achieved in all incisions using Dexon 4-0 subcuticular running sutures. Steri-Strips and dressings were applied. All incisions were infiltrated with Marcaine 0.5% for postop analgesia. The procedure was completed. The patient tolerated the procedure well. There were no complications noted. Initial and final counts of sponges and instruments were correct. Estimated blood loss was about 20 mL. The patient was extubated without difficulty in the operating room and transferred to recovery room with stable vital signs. MD NORMA Naik/YINKA / [id number] MTDD
== END 2020-09-09 14:00 | disposition home or self-care (01) ==
PROVIDERS: PCP Internal Medicine; Visit Provider Surgery
PROC: 0FT44ZZ Resection of Gallbladder, Percutaneous Endoscopic Approach (ICD-10-PCS; CPT 47562; principal; 2020-09-09 13:00)
DX: K42.9 Umbilical hernia without obstruction or gangrene (principal); K80.20 Calculus of gallbladder without cholecystitis without obstruction
CPT/HCPCS: 49585; 47562; 88304; 93005; J1100; J2405; J3010

== ENCOUNTER → 2020-09-22 08:46 | Outpatient (BNVA) | payer MEDICARE, MEDICAID, SELFPAY | PROVIDERS: PCP Internal Medicine; Visit Provider Surgery | DX: I44.7 Left bundle-branch block, unspecified (principal); I10 Essential (primary) hypertension; E78.5 Hyperlipidemia, unspecified; R60.0 Localized edema; Z79.899 Other long term (current) drug therapy; Z09 Encounter for follow-up examination after completed treatment for conditions other than malignant neoplasm; Z87.19 Personal history of other diseases of the digestive system; Z90.49 Acquired absence of other specified parts of digestive tract | CPT/HCPCS: 93005; 99212 ==

== ENCOUNTER → 2020-12-11 10:08 | Outpatient (BNV) | payer MEDICARE, MEDICAID, SELFPAY | PROVIDERS: PCP Internal Medicine; Visit Provider Internal Medicine Medical Oncology | DX: C61 Malignant neoplasm of prostate (principal) | CPT/HCPCS: 99212; 99213; 99214 ==

== ENCOUNTER 2020-12-18 08:09 | Outpatient (REF) | payer MEDICARE, MEDICAID, SELFPAY ==
[2020-12-18 09:27] LABS: Prostate Specific Antigen 0.17 ng/mL (<0.05-4.0)
== END 2020-12-18 08:10 | disposition home or self-care (01) ==
LOC: HO.LAB 08:09
PROVIDERS: PCP Internal Medicine; Visit Provider Urology
DX: Z12.5 Encounter for screening for malignant neoplasm of prostate (principal)
CPT/HCPCS: 36415; 84153

== ENCOUNTER → 2020-12-25 09:00 | Outpatient (BNVA) | payer MEDICARE, MEDICAID, SELFPAY | PROVIDERS: PCP Internal Medicine; Visit Provider Urology | DX: C61 Malignant neoplasm of prostate (principal); N40.0 Benign prostatic hyperplasia without lower urinary tract symptoms | CPT/HCPCS: 51798; 99212 ==

== ENCOUNTER → 2021-04-15 11:44 | Outpatient (BNVA) | payer MEDICARE, MEDICAID, SELFPAY | PROVIDERS: PCP Internal Medicine; Referring Provider Internal Medicine; Visit Provider Nurse Practitioner Family ==

== ENCOUNTER 2021-04-29 07:54 | Outpatient (REF) | payer MEDICARE, MEDICAID, SELFPAY ==
--- NOTE | ~2021-04-29 | US_ITS ---
EXAMINATION: US ABDOMEN COMPLETE CLINICAL INFORMATION: Abdominal distention (gaseous). COMPARISON: CT abdomen and pelvis without contrast dated 08/31/2020. Ultrasound abdomen complete dated 12/26/2017 and 08/19/2017. TECHNIQUE: Real-time imaging of the abdominal viscera. Technically difficult study secondary to bowel gas. FINDINGS: PANCREAS: The pancreas is obscured by overlying gas. ABDOMINAL AORTA: The proximal, mid, and distal segments are normal in caliber. INFERIOR VENA CAVA: Visualized portions are normal. LIVER: The liver is small size. The liver contour is normal. Parenchymal echogenicity is normal. No focal hepatic lesion. There is no intrahepatic biliary duct dilatation seen. GALLBLADDER: Surgically absent. COMMON BILE DUCT: CBD not visualized. RIGHT KIDNEY: Normal. No hydronephrosis. No renal calculi or focal parenchymal lesions. The kidney measures 9.3 cm in maximum dimension. LEFT KIDNEY: Normal. No hydronephrosis. No renal calculi or focal parenchymal lesions. The kidney measures 9.5 cm in maximum dimension. SPLEEN: Normal. The spleen measures 10.3 cm in maximum dimension. FREE FLUID: None. US/US abdomen complete IMPRESSION: Small liver without focal lesion. The rest of the abdominal ultrasound is unremarkable.
== END 2021-04-29 07:55 | disposition home or self-care (01) ==
LOC: HO.US 07:54
PROVIDERS: Visit Provider Nurse Practitioner Family
DX: C61 Malignant neoplasm of prostate (principal); R14.0 Abdominal distension (gaseous); R60.0 Localized edema
CPT/HCPCS: 76700

== ENCOUNTER 2021-05-11 07:51 | Outpatient (REF) | payer MEDICARE, MEDICAID, SELFPAY ==
[2021-05-11 11:40] LABS: B Type Natriuretic Peptide 37 pg/mL (<100)
[2021-05-11 11:49] LABS: Alanine Aminotransferase 31 U/L (0-40); Albumin Level 3.9 g/dL (3.5-5.0); Alkaline Phosphatase 74 U/L (39-117); Anion Gap 13 (12-20); Aspartate Amino Transferase 28 U/L (5-37); Bilirubin Total 1.2 mg/dL (0.0-1.0); Blood Urea Nitrogen 19 mg/dL (9-16); Calcium 8.8 mg/dL (8.4-10.2); Carbon Dioxide 27 mmol/L (22-29); Chloride 107 mmol/L (96-108); Cholesterol 153 mg/dL; Estimated Glomerular Filt Rate 52; Glucose Random 90 mg/dL (60-115); HDL Cholesterol 51 mg/dL; LDL Cholesterol Calculated 86 mg/dl; Potassium 4.3 mmol/L (3.3-5.1); Sodium 143 mmol/L (135-145); Total Protein 6.4 g/dL (6.5-8.0); Triglycerides 84 mg/dL
== END 2021-05-11 07:52 | disposition home or self-care (01) ==
LOC: HO.HMGCLDS 07:51
PROVIDERS: PCP Internal Medicine; Visit Provider Nurse Practitioner Family
DX: E78.00 Pure hypercholesterolemia, unspecified (principal); I10 Essential (primary) hypertension; R14.0 Abdominal distension (gaseous); R60.0 Localized edema; E78.5 Hyperlipidemia, unspecified
CPT/HCPCS: 36415; 80053; 80061; 83880

== ENCOUNTER → 2021-05-12 10:08 | Outpatient (REF) | payer MEDICARE, MEDICAID, SELFPAY ==
--- NOTE | 2021-05-12 10:10 | CA_ITS ---
Transthoracic Echocardiogram Patient (Last, First, Middle): Christiano Jensen, Gender: Male Date of : 1945 Age: 75 Procedure Date: 05/12/2021 Procedure Type: Transthoracic Echocardiogram Location: OP Height: 165.1 cm Weight: 81.65 kg BSA: 1.89 m2 Heart Rate: bpm BP: 140 / 90 mmHg Cafe Worker: BRANDON Referring MD: Shira Chang GAME ARTIST-C Symptoms: I44.7 - Left bundle-branch block, unspecified Study Quality: Technically Difficult ECG Rhythm: Sinus Conclusions: - The left ventricular systolic function is mildly decreased. The calculated ejection fraction is 46% by biplane method. - No obvious valvular pathology seen on this study. Findings Left Ventricle Normal left ventricular cavity size. There is mildly increased left ventricular wall thickness. The left ventricular systolic function is mildly decreased. The calculated ejection fraction is 46% by biplane method. There is mild global hypokinesis. E/E prime ratio is between 8 and 15 consistent with indeterminate filling pressures. Evidence suggests grade I (mild) diastolic dysfunction. Right Ventricle Normal right ventricular cavity size and systolic function. Atria The left atrium is normal in size. The right atrium is normal in size. Aortic Valve The aortic valve was not well visualized. The aortic valve structure and function is likely normal. There is no aortic valve stenosis. There is no aortic valve regurgitation. Mitral Valve The mitral valve appears normal. There is no mitral valve regurgitation. There is no mitral valve stenosis. Pulmonic Valve The pulmonic valve was not well visualized. Tricuspid Valve Normal tricuspid valve structure. There is no tricuspid valve regurgitation. The pulmonary artery systolic pressure is normal. Great Vessels The aortic annulus, sinuses of valsalva, and aortic arch are normal in size. Venous The inferior vena cava is normal in size and collapses greater than 50% with inspiration. Pericardium/Pleural There is no evidence of pericardial effusion. Prior Study Comparison Changes noted compared to prior study dated: 09/02/2020. LVEF lower than prior study. Recommendations, Care & Conclusions No obvious valvular pathology seen on this study. Measurements M-Mode Liner Measurements Normals - Women/Men AOV Cusps: 2.10 1.5-2.6 cm/m2 2D Linear Measurements IVSd: 1.07 0.6-0.9/0.6-1.0 cm LVIDd: 4.75 3.9-5.3/4.2-5.9 cm LVIDd Index: 2.51 2.4-3.2/2.2-3.1 cm/m2 LVIDs: 4.15 2.0-3.6 cm LVPWd: 1.05 0.7-1.1 cm Ao Root: 3.20 2.1-3.5 cm LA Diam: 2.90 2.7-3.8/3.0-4.0 cm LAIDs Index: 1.53 1.5-2.3 cm/m2 LV Mass: 225.75 67-162/88-224 g LV Mass Index: 119.45 43-95/49-115 g/m2 LVOT Diam: 2.10 3.0+(-)1.3 cm 2D Systolic Function EF 4C: 46.30 >55% EF 2C: 42.50 >55% EF BiP: 45.70 >55% Mitral Valve MV Pk E: 0.78 MV PK A: 0.79 MV Decel Time: 297.00 E/A: 1.00 E'Lateral: 9.03 E'Medial: 6.53 E/E' Med: 11.90 E/E' Lat: 8.60 PHT: 87.00 MVA PHT: 2.53 Decel [place]: 2.62 Aortic Valve AoV Pk Greg: 1.21 AoV Mn Greg: 0.86 AoV VTI: 0.26 AoV Pk Grad: 6.00 Aov Mn Grad: 3.00 ARTIS Cont.VTI: 2.48 LVOT LVOT Pk Greg: 0.89 LVOT Mn Greg: 0.63 LVOT VTI: 0.19 LVOT Pk Grad: 3.00 LVOT Mn Grad: 2.00 LVOT Diam: 2.10 LVOT Area: 3.46 Diastolic Function MV Pk E: 0.78 MV Pk A: 0.79 E/A: 1.00 E'Medial: 6.53 E/E' Med: 11.90 E' Laterial: 9.03 E/E' Lat: 8.60 Tricuspid Valve RA Press: 3.00 Great Vessels Aorta Ao Root-2D: 3.20 2.0-3.7 cm Ao Asc: 3.20 2.1-3.4 cm Pulmonary Valve PV Pk Greg: 1.24 Peak PV Grad: 6.00 Updated in Other Vendor System with Status of Final Sg Horton MD electronically signed on 05/12/2021 1:08:47 PM with status of Final
== END ==
LOC: HO.CARD 10:08
PROVIDERS: Visit Provider Nurse Practitioner Family
DX: I10 Essential (primary) hypertension (principal); I44.7 Left bundle-branch block, unspecified; R14.0 Abdominal distension (gaseous)
CPT/HCPCS: 93005; 93306; 99212

== ENCOUNTER → 2021-05-18 09:08 | Outpatient (BNVA) | payer MEDICARE, MEDICAID, SELFPAY | PROVIDERS: PCP Internal Medicine; Referring Provider Internal Medicine; Visit Provider Internal Medicine | DX: I11.0 Hypertensive heart disease with heart failure (principal); I50.32 Chronic diastolic (congestive) heart failure; I44.7 Left bundle-branch block, unspecified; E78.5 Hyperlipidemia, unspecified | CPT/HCPCS: 99212 ==

== ENCOUNTER → 2021-05-26 10:55 | Outpatient (REF) | payer MEDICARE, MEDICAID, SELFPAY | LOC: HO.SL 10:55 | PROVIDERS: PCP Internal Medicine; Visit Provider Internal Medicine | DX: G47.33 Obstructive sleep apnea (adult) (pediatric) (principal); I50.32 Chronic diastolic (congestive) heart failure | CPT/HCPCS: 95806 ==

== ENCOUNTER → 2021-06-25 08:31 | Outpatient (BNVA) | payer MEDICARE, MEDICAID, SELFPAY | PROVIDERS: PCP Internal Medicine; Visit Provider Urology | DX: C61 Malignant neoplasm of prostate (principal); N40.0 Benign prostatic hyperplasia without lower urinary tract symptoms | CPT/HCPCS: 51798; 99212 ==

== ENCOUNTER → 2021-09-23 09:37 | Outpatient (BNVA) | payer MEDICARE, MEDICAID, SELFPAY | PROVIDERS: PCP Internal Medicine; Referring Provider Internal Medicine; Visit Provider Internal Medicine | DX: I11.0 Hypertensive heart disease with heart failure (principal); I50.32 Chronic diastolic (congestive) heart failure; I44.7 Left bundle-branch block, unspecified; E78.5 Hyperlipidemia, unspecified; G47.33 Obstructive sleep apnea (adult) (pediatric) | CPT/HCPCS: 93005; 99212 ==

== ENCOUNTER → 2021-10-26 10:33 | Outpatient (BNVA) | payer MEDICARE, MEDICAID, SELFPAY | PROVIDERS: PCP Internal Medicine; Visit Provider Internal Medicine | DX: G47.33 Obstructive sleep apnea (adult) (pediatric) (principal); E66.9 Obesity, unspecified; I50.32 Chronic diastolic (congestive) heart failure | CPT/HCPCS: 99202 ==

== ENCOUNTER 2021-12-02 13:35 | Outpatient (REF) | payer MEDICARE, MEDICAID, SELFPAY ==
[2021-12-02 14:56] LABS: Binax Internal Control QC Valid; Binax Now Covid-19 Ag Negative (Negative)
== END 2021-12-02 13:36 | disposition home or self-care (01) ==
LOC: HO.LAB 13:35
PROVIDERS: Visit Provider Internal Medicine
DX: Z20.822 Contact with and (suspected) exposure to COVID-19 (principal)
CPT/HCPCS: C9803

== ENCOUNTER 2021-12-21 07:02 | Outpatient (REF) | payer MEDICARE, MEDICAID, SELFPAY ==
[2021-12-21 11:44] LABS: MANUAL DIFF FLAG NO
[2021-12-21 11:52] LABS: Basophils Absolute Auto 0.1 X10*3/uL (0.0-0.2); Basophils Percent Auto 1.4 % (0-2); Eosinophils Absolute Auto 0.3 X10*3/uL (0.0-0.4); Eosinophils Percent Auto 4.6 % (0-4); Hematocrit 46.7 % (42.0-52.0); Hemoglobin 14.3 g/dl (14.0-18.0); Imm Gran Abs Auto 0.02 X10*3/uL (0.00-0.03); Imm Gran Pct Auto 0.3 % (0.0-0.4); Lymphocytes Absolute Auto 2.1 X10*3/uL (1.2-4.9); Mean Corpuscular HGB Conc 30.6 g/dl (31.0-36.0); Mean Corpuscular Hemoglobin 25.7 pg (27.0-33.0); Mean Corpuscular Volume 83.8 fL (80.0-98.0); Mean Platelet Volume 11.6 fL (9.4-12.4); Monocytes Absolute Auto 0.7 X10*3/uL (0.1-1.2); Monocytes Percent Auto 10.9 % (2-11); Neutrophils Absolute Auto 3.3 x10*3/uL (2.0-8.3); Neutrophils Percent Auto 50.8 % (45-73); Platelet Count 193 X10*3/uL (160-400); Red Blood Count 5.57 X10*6/uL (4.60-5.80); Red Cell Distribution Width 15.5 % (11.0-16.0); White Blood Count 6.5 X10*3/uL (4.8-10.8)
[2021-12-21 12:07] LABS: Alanine Aminotransferase 47 U/L (0-40); Albumin Level 4.2 g/dL (3.5-5.0); Alkaline Phosphatase 76 U/L (39-117); Anion Gap 11 (12-20); Aspartate Amino Transferase 34 U/L (5-37); Bilirubin Total 1.3 mg/dL (0.0-1.0); Blood Urea Nitrogen 19 mg/dL (9-16); Calcium 9.6 mg/dL (8.4-10.2); Carbon Dioxide 31 mmol/L (22-29); Chloride 105 mmol/L (96-108); Cholesterol 157 mg/dL; Estimated Glomerular Filt Rate 46; Glucose Fasting 96 mg/dL (60-99); HDL Cholesterol 46 mg/dL; LDL Cholesterol Calculated 92 mg/dl; Sodium 143 mmol/L (135-145); Triglycerides 97 mg/dL
[2021-12-21 12:30] LABS: Prostate Specific Antigen 0.22 ng/mL (<0.05-4.0)
== END 2021-12-21 07:03 | disposition home or self-care (01) ==
LOC: HO.HMGCLDS 07:02
PROVIDERS: Absent Provider Urology; Visit Provider Internal Medicine
DX: E78.5 Hyperlipidemia, unspecified (principal); E66.9 Obesity, unspecified; D64.9 Anemia, unspecified; C61 Malignant neoplasm of prostate; Z12.5 Encounter for screening for malignant neoplasm of prostate
CPT/HCPCS: 36415; 80053; 80061; 84153; 85025

== ENCOUNTER → 2021-12-25 08:40 | Outpatient (BNVA) | payer MEDICARE, MEDICAID, SELFPAY | PROVIDERS: Visit Provider Urology | DX: Z13.89 Encounter for screening for other disorder (principal) ==

== ENCOUNTER → 2022-01-15 12:10 | Outpatient (BNVA) | payer MEDICARE, MEDICAID, SELFPAY | PROVIDERS: PCP Internal Medicine; Visit Provider Urology | CPT/HCPCS: Q3014 ==

== ENCOUNTER → 2022-01-27 09:40 | Outpatient (BNVA) | payer MEDICARE, MEDICAID, SELFPAY | PROVIDERS: PCP Internal Medicine; Visit Provider Internal Medicine | DX: G47.33 Obstructive sleep apnea (adult) (pediatric) (principal); E66.9 Obesity, unspecified; Z68.31 Body mass index [BMI] 31.0-31.9, adult | CPT/HCPCS: 99212 ==

== ENCOUNTER → 2022-02-03 13:04 | Outpatient (BNVA) | payer MEDICARE, MEDICAID, SELFPAY | PROVIDERS: PCP Internal Medicine; Referring Provider Internal Medicine; Visit Provider Internal Medicine | DX: I44.7 Left bundle-branch block, unspecified (principal); I50.32 Chronic diastolic (congestive) heart failure; M79.89 Other specified soft tissue disorders; G47.33 Obstructive sleep apnea (adult) (pediatric); I10 Essential (primary) hypertension; E78.5 Hyperlipidemia, unspecified; E78.00 Pure hypercholesterolemia, unspecified; Z88.6 Allergy status to analgesic agent; Z91.014 Allergy to mammalian meats; Z91.018 Allergy to other foods; Z79.899 Other long term (current) drug therapy | CPT/HCPCS: 99212 ==

== ENCOUNTER → 2022-03-05 08:16 | Outpatient (REF) | payer MEDICARE, MEDICAID, SELFPAY ==
--- NOTE | 2022-03-05 08:45 | CA_ITS ---
Transthoracic Echocardiogram Patient (Last, First, Middle): Christiano Jensen, Gender: Male Date of : 1945 Age: 76 Procedure Date: 03/05/2022 Procedure Type: Transthoracic Echocardiogram Location: OP Height: 165.1 cm Weight: 81.65 kg BSA: 1.89 m2 Heart Rate: bpm BP: 122 / 70 mmHg Percher: Referring MD: Sg Horton MD Symptoms: I44.7 - Left bundle-branch block, unspecified Study Quality: Fair ECG Rhythm: Sinus, LBBB Conclusions: - Normal left ventricular cavity size. There is mildly increased left ventricular wall thickness. The left ventricular systolic function is mildly decreased. The visually estimated ejection fraction is between 40-45%. - Normal right ventricular cavity size and systolic function. Findings Left Ventricle Normal left ventricular cavity size. There is mildly increased left ventricular wall thickness. The left ventricular systolic function is mildly decreased. The visually estimated ejection fraction is between 40-45%. There is mild global hypokinesis. There is paradoxical septal motion consistent with a left bundle branch block. Diastolic function is indeterminate on the basis of available data. Right Ventricle Normal right ventricular cavity size and systolic function. Atria The left atrium is normal in size. Aortic Valve The aortic valve structure and function is likely normal. There is no aortic valve stenosis. There is no aortic valve regurgitation. Mitral Valve Normal mitral valve structure and function. There is no mitral valve regurgitation. There is no mitral valve stenosis. Pulmonic Valve The pulmonic valve was not well visualized. Tricuspid Valve Normal tricuspid valve structure and function. There is no tricuspid valve regurgitation. Tricuspid regurgitation envelope is inadequate for calculation of right ventricular systolic pressure. Normal right atrial pressure. Great Vessels All visible segments of the aorta are normal in size. The pulmonary artery was not well visualized. Venous The inferior vena cava is normal in size and collapses greater than 50% with inspiration. Pericardium/Pleural There is no evidence of pericardial effusion. Prior Study Comparison No significant change compared to prior study. Measurements 2D Linear Measurements IVSd: 1.20 0.6-0.9/0.6-1.0 cm LVIDd: 4.32 3.9-5.3/4.2-5.9 cm LVIDd Index: 2.29 2.4-3.2/2.2-3.1 cm/m2 LVIDs: 2.80 2.0-3.6 cm LVPWd: 1.23 0.7-1.1 cm Ao Root: 3.30 2.1-3.5 cm LA Diam: 2.80 2.7-3.8/3.0-4.0 cm LAIDs Index: 1.48 1.5-2.3 cm/m2 LV Mass: 236.00 67-162/88-224 g LV Mass Index: 124.87 43-95/49-115 g/m2 LVOT Diam: 2.10 3.0+(-)1.3 cm 2D Systolic Function EF 4C: 43.40 >55% EF 2C: 53.80 >55% EF BiP: 48.50 >55% Mitral Valve MV Pk E: 0.76 MV PK A: 0.79 MV Decel Time: 258.00 E/A: 1.00 E'Lateral: 10.70 E'Medial: 6.74 E/E' Med: 11.20 E/E' Lat: 7.10 PHT: 76.00 MVA PHT: 2.89 Decel [place]: 2.94 Aortic Valve AoV Pk Greg: 1.15 AoV Mn Greg: 0.81 AoV VTI: 0.28 AoV Pk Grad: 5.00 Aov Mn Grad: 3.00 ARTIS Cont.VTI: 2.38 LVOT LVOT Pk Greg: 0.79 LVOT Mn Gerg: 0.56 LVOT VTI: 0.19 LVOT Pk Grad: 2.00 LVOT Mn Grad: 1.00 LVOT Diam: 2.10 LVOT Area: 3.46 Diastolic Function MV Pk E: 0.76 MV Pk A: 0.79 E/A: 1.00 E'Medial: 6.74 E/E' Med: 11.20 E' Laterial: 10.70 E/E' Lat: 7.10 Right Ventricle TAPSE (mm): 28.00 TVS' Greg: 10.00 Tricuspid Valve TR Pk Greg: 1.55 TR Pk Grad: 10.00 RA Press: 3.00 Great Vessels Aorta Ao Root-2D: 3.30 2.0-3.7 cm Ao Asc: 3.10 2.1-3.4 cm Pulmonary Valve PV Pk Greg: 0.88 Peak PV Grad: 3.00 Updated in Other Vendor System with Status of Final Neftaly Gregory MD electronically signed on 03/07/2022 12:04:42 PM with status of Final
[2022-03-05 09:49] LABS: Alanine Aminotransferase 45 U/L (0-40); Albumin Level 4.1 g/dL (3.5-5.0); Alkaline Phosphatase 76 U/L (39-117); Anion Gap 13 (12-20); Aspartate Amino Transferase 39 U/L (5-37); Bilirubin Total 1.6 mg/dL (0.0-1.0); Blood Urea Nitrogen 16 mg/dL (9-16); Calcium 9.5 mg/dL (8.4-10.2); Carbon Dioxide 27 mmol/L (22-29); Chloride 106 mmol/L (96-108); Cholesterol 137 mg/dL; Estimated Glomerular Filt Rate 52; Glucose Fasting 106 mg/dL (60-99); HDL Cholesterol 43 mg/dL; LDL Cholesterol Calculated 75 mg/dl; Sodium 142 mmol/L (135-145); Total Protein 6.9 g/dL (6.5-8.0); Triglycerides 98 mg/dL
[2022-03-05 10:14] LABS: Vitamin D 25-OH Total 15.6 ng/mL (>30)
[2022-03-06 11:06] LABS: NT-proBNP 66 pg/mL
== END ==
LOC: HO.CARD 08:16
PROVIDERS: PCP Internal Medicine; Visit Provider Internal Medicine
DX: I44.7 Left bundle-branch block, unspecified (principal); I50.32 Chronic diastolic (congestive) heart failure; E78.5 Hyperlipidemia, unspecified; E55.9 Vitamin D deficiency, unspecified; N18.30 Chronic kidney disease, stage 3 unspecified
CPT/HCPCS: 36415; 80053; 80061; 82306; 83880; 93306

== ENCOUNTER → 2022-03-31 09:55 | Outpatient (BNVA) | payer MEDICARE, MEDICAID, SELFPAY | PROVIDERS: PCP Internal Medicine; Visit Provider Internal Medicine | DX: G47.33 Obstructive sleep apnea (adult) (pediatric) (principal); E66.9 Obesity, unspecified; Z68.31 Body mass index [BMI] 31.0-31.9, adult | CPT/HCPCS: 99212 ==

== ENCOUNTER 2022-06-21 10:15 | Outpatient (REF) | payer MEDICARE, MEDICAID, SELFPAY ==
[2022-06-21 12:18] LABS: Vitamin B12 215 pg/mL (200-900)
== END 2022-06-21 10:16 | disposition home or self-care (01) ==
LOC: HO.LAB 10:15
PROVIDERS: PCP Internal Medicine; Visit Provider Psychiatry & Neurology Neurology
DX: F01.50 Vascular dementia, unspecified severity, without behavioral disturbance, psychotic disturbance, mood disturbance, and anxiety (principal)
CPT/HCPCS: 36415; 82607

== ENCOUNTER → 2022-07-06 08:20 | Outpatient (BNVA) | payer MEDICARE, MEDICAID, SELFPAY | PROVIDERS: PCP Internal Medicine; Referring Provider Internal Medicine; Visit Provider Internal Medicine | DX: I11.0 Hypertensive heart disease with heart failure (principal); I50.32 Chronic diastolic (congestive) heart failure; I44.7 Left bundle-branch block, unspecified; E78.5 Hyperlipidemia, unspecified; G47.33 Obstructive sleep apnea (adult) (pediatric) | CPT/HCPCS: 99212 ==

== ENCOUNTER → 2022-07-20 12:39 | Outpatient (BNVA) | payer MEDICARE, MEDICAID, SELFPAY | PROVIDERS: PCP Internal Medicine; Visit Provider Urology | DX: C61 Malignant neoplasm of prostate (principal) | CPT/HCPCS: 51798; 99212 ==

== ENCOUNTER 2022-08-10 13:31 | Outpatient (REF) | payer MEDICARE, MEDICAID, SELFPAY ==
[2022-08-10 14:19] LABS: Binax Internal Control QC Valid; Binax Now Covid-19 Ag Negative (Negative); Binax Performed by: HO.BONILM
== END 2022-08-10 13:32 | disposition home or self-care (01) ==
LOC: HO.HMGCLDS 13:31
PROVIDERS: PCP Internal Medicine; Visit Provider Internal Medicine
DX: J06.9 Acute upper respiratory infection, unspecified (principal); Z20.822 Contact with and (suspected) exposure to COVID-19
CPT/HCPCS: 87811; C9803

== ENCOUNTER 2022-10-18 06:06 | Outpatient (REF) | payer MEDICARE, MEDICAID, SELFPAY ==
[2022-10-18 13:09] LABS: Alanine Aminotransferase 35 U/L (0-40); Albumin Level 4.1 g/dL (3.5-5.0); Alkaline Phosphatase 87 U/L (39-117); Aspartate Amino Transferase 35 U/L (5-37); Bilirubin Total 1.4 mg/dL (0.0-1.0); Blood Urea Nitrogen 13 mg/dL (9-16); Calcium 8.8 mg/dL (8.4-10.2); Cholesterol 149 mg/dL; Estimated Glomerular Filt Rate 53; Glucose Fasting 99 mg/dL (60-99); HDL Cholesterol 47 mg/dL; LDL Cholesterol Calculated 85 mg/dl; Total Protein 6.8 g/dL (6.5-8.0); Triglycerides 88 mg/dL; Vitamin D 25-OH Total 48.7 ng/mL (>30)
[2022-10-18 13:21] LABS: Anion Gap 14 (12-20); Carbon Dioxide 28 mmol/L (22-29); Chloride 103 mmol/L (96-108); Potassium 3.4 mmol/L (3.3-5.1); Sodium 142 mmol/L (135-145)
== END 2022-10-18 06:07 | disposition home or self-care (01) ==
LOC: HO.HMGCLDS 06:06
PROVIDERS: PCP Internal Medicine; Visit Provider Internal Medicine
DX: E55.9 Vitamin D deficiency, unspecified (principal); E78.5 Hyperlipidemia, unspecified; N18.30 Chronic kidney disease, stage 3 unspecified
CPT/HCPCS: 36415; 80053; 80061; 82306

== ENCOUNTER 2023-01-14 09:15 | Outpatient (REF) | payer MEDICARE, MEDICAID, SELFPAY ==
[2023-01-14 12:37] LABS: Vitamin D 25-OH Total 44.7 ng/mL (>30)
[2023-01-14 12:44] LABS: Alanine Aminotransferase 44 U/L (0-40); Albumin Level 4.3 g/dL (3.5-5.0); Alkaline Phosphatase 81 U/L (39-117); Anion Gap 11 (12-20); Aspartate Amino Transferase 39 U/L (5-37); Blood Urea Nitrogen 15 mg/dL (9-16); Calcium 9.6 mg/dL (8.4-10.2); Carbon Dioxide 31 mmol/L (22-29); Chloride 105 mmol/L (96-108); Estimated Glomerular Filt Rate 50; Glucose Fasting 100 mg/dL (60-99); Sodium 143 mmol/L (135-145); Total Protein 6.9 g/dL (6.5-8.0)
== END 2023-01-14 09:16 | disposition home or self-care (01) ==
LOC: HO.HMGCLDS 09:15
PROVIDERS: PCP Internal Medicine; Visit Provider Urology
DX: C61 Malignant neoplasm of prostate (principal); E55.9 Vitamin D deficiency, unspecified; N18.30 Chronic kidney disease, stage 3 unspecified; Z12.5 Encounter for screening for malignant neoplasm of prostate
CPT/HCPCS: 36415; 80053; 82306; 84153

== ENCOUNTER → 2023-01-28 11:36 | Outpatient (BNVA) | payer MEDICARE, MEDICAID, SELFPAY | PROVIDERS: PCP Internal Medicine; Visit Provider Urology | DX: C61 Malignant neoplasm of prostate (principal) | CPT/HCPCS: 51798; 99212 ==

== ENCOUNTER → 2023-04-05 10:09 | Outpatient (REF) | payer MEDICARE, MEDICAID, SELFPAY ==
--- NOTE | 2023-04-05 10:15 | HM_ITS ---
Conclusion: 1. Patient was monitored for total period of 1 day and 22 hours 2. Baseline was normal sinus rhythm with average heart rate of 63 beats per minute 3. Frequent sinus bradycardia with heart rate below 60 beats per minute 47% of the time 4. Occasional PACs and PVCs noted 5. No significant pauses noted 6. No patient reported events MTDD
== END ==
LOC: HO.CARD 10:09
PROVIDERS: PCP Internal Medicine; Visit Provider Psychiatry & Neurology Neurology
DX: R00.1 Bradycardia, unspecified (principal)
CPT/HCPCS: 93225

== ENCOUNTER 2023-05-30 09:46 | Outpatient (AMB) | payer MEDICARE, MEDICAID, SELFPAY ==
--- NOTE | 2023-05-30 10:22 | MHC.PC.OV ---
Vital Signs 05/30/23 10:25 Height 5 ft 5 in Weight 180 lb BMI 30.0 BP 128/80 Blood Pressure Location Lt brachial Position Sitting Intake Visit Reasons: 6m follow up Intake Note: Patient here for a 6 month follow up Adjunct Instructor Required: No Accompanied by: Daughter Allergies codeine [CODEINE] Allergy (Severe, Verified 05/30/23 10:30) Facial Swelling pineapple [PINEAPPLE] Allergy (Mild, Verified 05/30/23 10:30) RASH Pork/Porcine Containing Products [PORK/PORCINE CONTAINING PRODUCTS] Allergy (Mild, Verified 05/30/23 10:30) ABDOMINAL PAIN, VOMITING Medication List - Last Reconciled 05/30/23 by Leighann Sellers MD atorvastatin 40 mg PO DAILY 90 days cholecalciferol (vitamin D3) (Vitamin D3) 50 mcg PO DAILY 90 days cyclobenzaprine 10 mg PO DAILY finasteride 5 mg PO DAILY furosemide 40 mg PO DAILY lisinopril 30 mg PO DAILY naproxen (EC-Naproxen) 500 mg PO Q12H PRN omeprazole 20 mg PO DAILY 90 days tamsulosin 0.4 mg PO DAILY 90 days Tobacco use date assessed: 11/25/22 Fall risk assessment: No Falls in past year Last assessed Fall Risk: 05/30/23 Dental Screening Dental Screen Date: 05/30/23 Did you have a dental visit in the last 12 months?: No Did you have a dental problem in the last 6 months where you did not have access to dental care?: No Was dental information given to patient?: No HPI HPI Comments History of Present Illness Details This is a 77-year-old male that comes today accompanied by daughter for follow-up on his conditions. He has chronic systolic congestive heart failure and last echocardiogram was done 2021 showing ejection fraction 40-45%. He denies any chest pain, shortness of breath or leg swelling. Has not gain 5 lb in a week. He also has chronic kidney disease stage III which has improved. Aware that has to avoid NSAIDs. For his cognitive impairment he sees Neurology. He has hypertension stable with medications. On statins for his cholesterol which will be recheck. He is not able to urinate today and was confused in the morning but better now. I order urinalysis. [facility] Medical History BPH (benign prostatic hyperplasia) Cholelithiasis CKD (chronic kidney disease) stage 3, GFR 30-59 ml/min Essential hypertension Essential hypertension Gallstone GERD (gastroesophageal reflux disease) LBBB (left bundle branch block) Leg edema Lumbar degenerative disc disease Obesity (BMI 30-39.9) Other and unspecified hyperlipidemia Prostate CA Pure hypercholesterolemia Stroke Umbilical hernia Urinary incontinence Surgical History H/O radical prostatectomy History of colonoscopy History of elbow surgery History of inguinal hernia repair Hx of appendectomy S/P TURP Family History Father Medical history unknown Mother Alcoholic cirrhosis CVD (cardiovascular disease) Brother Prostate cancer Maternal Uncle Prostate cancer Brother Muscular dystrophy Sister Asthma CAD (coronary artery disease) Social History Household Members: None Housing: Apartment Are you a primary child care sitter to a significant other at home: No Do you presently have visiting nurse or other home 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 Ky Escobar, Aneta Shelton, Vance Mccallum and colleagues, with an educational shelia from [employer]. Review of Systems Const All systems reviewed & are unremarkable except as noted in HPI and below Eyes Reports no additional complaints, Denies change in vision and Denies other visual disturbances Card Denies chest pain at rest, Denies chest pain with activity, Denies edema, Denies irregular heart rhythm, Denies claudication, Denies dyspnea, Denies dyspnea on exertion, Denies orthopnea, Denies paroxysmal nocturnal dyspnea and Denies slow heart rate Resp Denies cough, Denies dyspnea and Denies dyspnea on exertion GI Denies abdominal pain, Denies change in bowel habits, Denies excessive flatus, Denies nausea and Denies vomiting Denies urinary hesitancy, Denies urinary incontinence and Denies urinary urgency Musc Denies abnormal gait, Denies atrophy, Denies deformity and Denies limited range of motion Skin/Breast Denies bleeding lesions, Denies changing lesions and Denies rash Neuro Denies abnormal gait and Denies lack of coordination Physical exam (Primary Care) Vital Signs: Last Vital Signs BP 128/80 05/30/23 10:25 BMI result Body Mass Index 30.0 Tobacco/Smoking Status: Tobacco use Status Tobacco use date assessed 11/25/22 05/30/23 10:25 Patient Tobacco Use Status Never used Tobacco 05/30/23 10:25 e-Cigarette/Vaping Use Never Used 05/30/23 10:25 Thrive Assessment: Date of Thrive Assessment Date Thrive assessed 11/25/22 05/30/23 10:25 Const Orientation/consciousness: oriented to person Eyes General: appearance normal, both eyes and all related structures Eyelids: Yes eyelids normal Conjunctivae: conjunctivae normal Neck Neck: Yes normal visual inspection and Yes supple Resp Effort & Inspection: normal respiratory effort Auscultation: clear to auscultation bilaterally Cardio Jugular venous distension: no JVD Rate: regular rate Rhythm: regular rhythm Heart sounds: S1 normal heart sound present and S2 normal heart sound present Neuro General: oriented to person Extrem General: Yes full ROM Assessment and Plan Assessment & Plan (1) Chronic systolic (congestive) heart failure: Code(s): I50.22 - Chronic systolic (congestive) heart failure Plan: Continue lisinopril and diuretics as needed. Follow-up with Cardiology. The goal is to not gain 5 lb in a week. (2) CKD (chronic kidney disease) stage 3, GFR 30-59 ml/min: Code(s): N18.30 - Chronic kidney disease, stage 3 unspecified Plan: Avoid NSAIDs. Keep blood pressure within goal. (3) Essential hypertension: Code(s): I10 - Essential (primary) hypertension Plan: Continue lisinopril. Blood pressure goal is equal or less than 130/80. (4) Pure hypercholesterolemia: Code(s): E78.00 - Pure hypercholesterolemia, unspecified Plan: Continue statins. Coding Level of Care Code Est Pt Level 4 (11869) Diagnoses Chronic systolic (congestive) heart failure I50.22 CKD (chronic kidney disease) stage 3, GFR 30-59 ml/min N18.30 Essential hypertension I10 Pure hypercholesterolemia E78.00 Time Spent (min) 22
[2023-05-30 10:25] VITALS: BP 128/80
== END 2023-05-30 12:04 | disposition home or self-care (01) ==
PROVIDERS: Visit Provider Internal Medicine
DX: I13.0 Hypertensive heart and chronic kidney disease with heart failure and stage 1 through stage 4 chronic kidney disease, or unspecified chronic kidney disease (principal); N18.30 Chronic kidney disease, stage 3 unspecified; I50.22 Chronic systolic (congestive) heart failure; E78.00 Pure hypercholesterolemia, unspecified
CPT/HCPCS: 99214

== ENCOUNTER 2023-06-09 06:49 | Outpatient (REF) | payer MEDICARE, MEDICAID, SELFPAY ==
[2023-06-09 14:52] LABS: Alanine Aminotransferase 51 U/L (0-40); Albumin Level 4.2 g/dL (3.5-5.0); Alkaline Phosphatase 85 U/L (39-117); Anion Gap 14 (12-20); Aspartate Amino Transferase 41 U/L (5-37); Bilirubin Total 1.2 mg/dL (0.0-1.0); Blood Urea Nitrogen 25 mg/dL (9-16); Carbon Dioxide 29 mmol/L (22-29); Chloride 101 mmol/L (96-108); Cholesterol 130 mg/dL; Estimated Glomerular Filt Rate 42; Glucose Fasting 138 mg/dL (60-99); Glucose Random 138 mg/dL (60-115); HDL Cholesterol 48 mg/dL; LDL Cholesterol Calculated 67 mg/dl; Potassium 4.2 mmol/L (3.3-5.1); Sodium 140 mmol/L (135-145); Total Protein 7.3 g/dL (6.5-8.0); Triglycerides 75 mg/dL
[2023-06-09 14:56] LABS: Vitamin D 25-OH Total 86.7 ng/mL (>30)
[2023-06-09 16:16] LABS: Folate 7.5 ng/mL (> or = 4.0); Vitamin B12 633 pg/mL (200-900)
[2023-06-17 20:53] LABS: NT-proBNP 61 pg/mL (<450)
== END 2023-06-09 06:50 | disposition home or self-care (01) ==
LOC: HO.LAB 06:49
PROVIDERS: PCP Internal Medicine; Visit Provider Internal Medicine
DX: I50.22 Chronic systolic (congestive) heart failure (principal); E53.8 Deficiency of other specified B group vitamins; E55.9 Vitamin D deficiency, unspecified; E78.5 Hyperlipidemia, unspecified
CPT/HCPCS: 36415; 80048; 80053; 80061; 82306; 82607; 82746; 83880

== ENCOUNTER 2023-06-17 13:14 | Outpatient (AMB) | payer MEDICARE, MEDICAID, SELFPAY ==
--- NOTE | 2023-06-17 13:18 | MHC.OFFVIS ---
Intake Vital Signs 06/17/23 13:19 Height 5 ft 5 in Weight 174 lb 2.643 oz BMI 29.0 BP 120/70 Blood Pressure Location Lt brachial Position Sitting Pulse 57 Intake Visit Reasons: sob/feet swollen Intake Note: sob/feet swollen Computer Clerk Required: No Allergies codeine [CODEINE] Allergy (Severe, Verified 06/17/23 13:27) Facial Swelling pineapple [PINEAPPLE] Allergy (Mild, Verified 06/17/23 13:27) RASH Pork/Porcine Containing Products [PORK/PORCINE CONTAINING PRODUCTS] Allergy (Mild, Verified 06/17/23 13:27) ABDOMINAL PAIN, VOMITING Medication List - Last Reconciled 06/17/23 by Oneida Horta NP atorvastatin 40 mg PO DAILY 90 days cholecalciferol (vitamin D3) (Vitamin D3) 50 mcg PO DAILY 90 days finasteride 5 mg PO DAILY furosemide 40 mg PO DAILY lisinopril 30 mg PO DAILY naproxen (EC-Naproxen) 500 mg PO Q12H PRN omeprazole 20 mg PO DAILY 90 days tamsulosin 0.4 mg PO DAILY 90 days Vital Signs 06/17/23 13:19 Height 5 ft 5 in Weight 174 lb 2.643 oz BMI 29.0 Pulse 57 BP 120/70 Position Sitting HPI HPI Comments History of Present Illness Details 77-year-old male presents today for shortness of breath and swelling in his feet. Patient presents with spouse and daughter. History of cognitive impairment, HTN, CKD, LBBB on EKG, HLD, and TARA. He does not use CPAP at night. Per family, he has an occasional shortness of breath at rest and feel his feet are swollen. They report the swelling has come down since the Lasix was increased to 40mg. Patient and family report breathing feels okay,urinating often with the diuretic. Denies cough, chest pain, orthopnea, dizziness, or shortness of breath with ambulation. Family does report he has been having a decrease in diet but he eats a lot of TV dinners. [facility] Medical History BPH (benign prostatic hyperplasia) Cholelithiasis CKD (chronic kidney disease) stage 3, GFR 30-59 ml/min Essential hypertension Essential hypertension Gallstone GERD (gastroesophageal reflux disease) LBBB (left bundle branch block) Leg edema Lumbar degenerative disc disease Obesity (BMI 30-39.9) Other and unspecified hyperlipidemia Prostate CA Pure hypercholesterolemia Stroke Umbilical hernia Urinary incontinence Surgical History H/O radical prostatectomy History of colonoscopy History of elbow surgery History of inguinal hernia repair Hx of appendectomy S/P TURP Family History Father Medical history unknown Mother Alcoholic cirrhosis CVD (cardiovascular disease) Brother Prostate cancer Maternal Uncle Prostate cancer Brother Muscular dystrophy Sister Asthma CAD (coronary artery disease) Social History Household Members: None Housing: Apartment Are you a primary hospice home care coordinator to a significant other at home: No Do you presently have visiting nurse or other home services: 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) Alcohol intake: current Alcohol intake frequency: a few times a month Alcohol type: beer and hard liquor Patient Tobacco Use Status: Never used Tobacco e-Cigarette/Vaping Use: Never Used Second Hand Smoke Exposure: No service: No Current occupational status: disabled Cognitive needs: Yes Hearing needs: No Vision needs: No Review of Systems Const All systems reviewed & are unremarkable except as noted in HPI and below Eyes Reports as per HPI ENT Denies dizziness Card Reports as per HPI, Denies chest pain, Denies chest pain at rest, Denies chest pain with activity, Denies rapid heart rate, Reports pedal edema, Denies edema, Denies leg edema, Denies lightheadedness, Denies palpitations, Denies dyspnea, Denies dyspnea on exertion and Denies orthopnea Resp Reports as per HPI, Denies cough, Denies dyspnea and Denies dyspnea on exertion GI Denies hematochezia and Denies change in stool character Musc Denies numbness, Denies radiating pain into limb, Denies stiffness and Denies tingling Skin/Breast Reports as per HPI and Reports dry skin Neuro Denies dizziness, Denies numbness and Denies tingling Psych Reports as per HPI Endo Denies palpitations Physical Exam Const General: cooperative, comfortable and alert Orientation/consciousness: oriented to person HEENT Head: Yes normal to inspection Eyes General: appearance normal, both eyes and all related structures Neck Neck: Yes normal visual inspection and Yes no JVD Chest Chest palpation & inspection: normal inspection of the chest Resp Effort & Inspection: normal respiratory effort, able to speak in complete sentences and no cough Auscultation: clear to auscultation bilaterally Cardio Jugular venous distension: no JVD Palpation: normal PMI Rate: bradycardic (57 bpm on EKG) Rhythm: regular rhythm Heart sounds: S1 normal heart sound present and S2 normal heart sound present Peripheral pulses: Peripheral pulses 2+ throughout Skin General skin exam: no rashes or lesions noted Neuro General: oriented to person Extrem General: Yes normal to inspection, Yes full ROM and Yes capillary refill normal Psych Appearance: grossly normal Office Procedures EKG Details: EKG today: Sinus karen, LBBB. QTc 434 ms. [id number], Complete Assessment & Plan Assessment & Plan (1) Chronic systolic (congestive) heart failure: Code(s): I50.22 - Chronic systolic (congestive) heart failure Plan: Echo on 06/23/23. Had lab work done recently from PCP and Oncologist (2) Leg edema: Code(s): R60.0 - Localized edema Plan: BNP today (3) Essential hypertension: Code(s): I10 - Essential (primary) hypertension Plan: Within normal limits today. Had lab work done recently from PCP and Oncologist (4) LBBB (left bundle branch block): Code(s): I44.7 - Left bundle-branch block, unspecified Plan: Will be followed on EKG Plan Plan for Echocardiogram on 06/23/23. BNP today. He is seeing food service tray attendant Dr Luna this upcoming Aug for a overdue follow-up. Continue all medications as currently prescribed. Avoid salt in diet. Will call with results once available. Follow-up on 08/11/[address] Horton as planned - sooner if needed. Orders: Orders B Type Natriuretic Peptide Today I50.22 - Chronic systolic (congestive) heart failure Coding Level of Care Code Est Pt Level 4 (13741) Diagnoses Chronic systolic (congestive) heart failure I50.22 Leg edema R60.0 Essential hypertension I10 LBBB (left bundle branch block) I44.7 CPT Codes EKG - CPT: 50238-[id number], Complete ([id number])
[2023-06-17 13:19] VITALS: BP 120/70; PULSE 57; BMI 29.0
== END 2023-06-17 13:53 | disposition home or self-care (01) ==
PROVIDERS: PCP Internal Medicine; Visit Provider Nurse Practitioner
DX: I50.22 Chronic systolic (congestive) heart failure (principal); R60.0 Localized edema; I10 Essential (primary) hypertension; I44.7 Left bundle-branch block, unspecified
CPT/HCPCS: 93010; 99214

== ENCOUNTER 2023-06-17 13:14 | Outpatient (REF) | payer MEDICARE, MEDICAID, SELFPAY ==
[2023-06-17 15:35] LABS: B Type Natriuretic Peptide 36 pg/mL (<100)
== END 2023-06-17 13:15 | disposition home or self-care (01) ==
LOC: HO.LAB 13:14
PROVIDERS: PCP Internal Medicine; Visit Provider Nurse Practitioner
DX: I13.0 Hypertensive heart and chronic kidney disease with heart failure and stage 1 through stage 4 chronic kidney disease, or unspecified chronic kidney disease (principal); N18.9 Chronic kidney disease, unspecified; I50.22 Chronic systolic (congestive) heart failure; R06.02 Shortness of breath; I44.7 Left bundle-branch block, unspecified; E78.5 Hyperlipidemia, unspecified; R60.0 Localized edema; G47.33 Obstructive sleep apnea (adult) (pediatric); Z79.899 Other long term (current) drug therapy
CPT/HCPCS: 36415; 83880; 93005; 99212

== ENCOUNTER 2023-06-21 10:23 | Outpatient (AMB) | payer MEDICARE, MEDICAID, SELFPAY ==
--- NOTE | 2023-06-21 12:29 | MHC.OFFWIV ---
Intake Vital Signs 06/21/23 12:37 Height 5 ft 5 in BP 148/62 H Blood Pressure Location Rt brachial Position Sitting Pulse 50 Pulse Source Pulse Oximeter Temp 97.5 F Temp Source Temporal Artery Scan Pulse Oximetry (%) 98 Oxygen Delivery Method Room Air Intake Visit Reasons: EP headache (lobby) Intake Note: Pt is here c/o having a headache since this morning. Pt states the last time he had a headache this bad he had a minor stroke and is very worried. Patient Tobacco Use Status: Never used Tobacco Allergies codeine [CODEINE] Allergy (Severe, Verified 06/21/23 12:53) Facial Swelling pineapple [PINEAPPLE] Allergy (Mild, Verified 06/21/23 12:53) RASH Pork/Porcine Containing Products [PORK/PORCINE CONTAINING PRODUCTS] Allergy (Mild, Verified 06/21/23 12:53) ABDOMINAL PAIN, VOMITING Medication List - Last Reconciled 06/21/23 by Jaylen Cuadra MD atorvastatin 40 mg PO DAILY 90 days cholecalciferol (vitamin D3) (Vitamin D3) 50 mcg PO DAILY 90 days finasteride 5 mg PO DAILY furosemide 40 mg PO DAILY lisinopril 30 mg PO DAILY naproxen (EC-Naproxen) 500 mg PO Q12H PRN omeprazole 20 mg PO DAILY 90 days tamsulosin 0.4 mg PO DAILY 90 days HPI EP headache (lobby) HPI Details 77-year-old male presents to the office for a sick visit. He is accompanied by his daughter who is translating for him. Patient informed his daughter that he woke up this morning with headache. The last time he had such kind of headache, he had a small stroke. This was about 4 years ago. Subsequently patient is had dementia and is confused at baseline. He is able to ambulate independently. He came into the examining room without any assistance. He is able to answer questions appropriately. [facility] Medical History BPH (benign prostatic hyperplasia) Cholelithiasis CKD (chronic kidney disease) stage 3, GFR 30-59 ml/min Essential hypertension Essential hypertension Gallstone GERD (gastroesophageal reflux disease) LBBB (left bundle branch block) Leg edema Lumbar degenerative disc disease Obesity (BMI 30-39.9) Other and unspecified hyperlipidemia Prostate CA Pure hypercholesterolemia Stroke Umbilical hernia Urinary incontinence Surgical History H/O radical prostatectomy History of colonoscopy History of elbow surgery History of inguinal hernia repair Hx of appendectomy S/P TURP Family History Father Medical history unknown Mother Alcoholic cirrhosis CVD (cardiovascular disease) Brother Prostate cancer Maternal Uncle Prostate cancer Brother Muscular dystrophy Sister Asthma CAD (coronary artery disease) Social History Household Members: None Housing: Apartment Are you a primary animal daycare provider to a significant other at home: No Do you presently have visiting nurse or 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 home services: 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 This is his baseline. General: cooperative HEENT Head: Yes normal to inspection and Yes atraumatic Eyes General: appearance normal, both eyes and all related structures Neck Neck: Yes normal visual inspection and Yes full ROM Chest Chest palpation & inspection: normal inspection of the chest Resp Effort & Inspection: normal respiratory effort Auscultation: clear to auscultation bilaterally Cardio Jugular venous distension: no JVD Palpation: normal PMI Rate: regular rate Heart sounds: S1 normal heart sound present and S2 normal heart sound present GI Palpation (GI): Soft to palpation and No hepatosplenomegaly present Neuro Other: Reflexes are normal. No ulnar drift. No weakness noted. Extrem General: Yes normal to inspection and Yes full ROM Assessment & Plan Assessment & Plan (1) Headache: Code(s): R51.9 - Headache, unspecified Plan: Baby aspirin added to the regimen. Patient was reassured. Coding Level of Care Code Est Pt Level 4 (97298) Diagnoses Headache R51.9
[2023-06-21 12:37] VITALS: BP 148/62; PULSE 50; TEMP 36.4; O2SAT 98
== END 2023-06-21 13:11 | disposition home or self-care (01) ==
PROVIDERS: PCP Internal Medicine; Visit Provider Internal Medicine
DX: R51.9 Headache, unspecified (principal)
CPT/HCPCS: 99214

== ENCOUNTER → 2023-06-23 07:56 | Outpatient (REF) | payer MEDICARE, MEDICAID, SELFPAY ==
--- NOTE | 2023-06-23 08:00 | CA_ITS ---
Transthoracic Echocardiogram Patient (Last, First, Middle): Christiano Jensen, Gender: Male Date of : 1945 Age: 77 Procedure Date: 06/23/2023 Procedure Type: Transthoracic Echocardiogram Location: OP Height: 162.56 cm Weight: 79.38 kg BSA: 1.85 m2 Heart Rate: bpm BP: 100 / 60 mmHg Spray Gun Striper: TIA Referring MD: Sg Horton MD Symptoms: I50.22 - Chronic systolic (congestive) heart failure Study Quality: Fair/contrast Conclusions: - LVEF/wall motion difficult to assess in spite of contrast use. Suspect LVEF about 45-50%. - No obvious valvular pathology seen on this study. Findings Procedure Information Contrast agent, definity, is being given per protocol without apparent complications. Left Ventricle Normal left ventricular cavity size. There is normal left ventricular wall thickness. Diastolic function is normal for age. LVEF/wall motion difficult to assess in spite of contrast use. Suspect LVEF about 45-50%. Right Ventricle Mildly increased right ventricular cavity size. There is mildly decreased right ventricular systolic function. Atria Both atria are normal in size. Aortic Valve The aortic valve was not well visualized. There is no aortic valve stenosis. There is no aortic valve regurgitation. Mitral Valve The mitral valve appears normal. There is no mitral valve regurgitation. There is no mitral valve stenosis. Pulmonic Valve The pulmonic valve is likely normal. Tricuspid Valve There is no tricuspid valve regurgitation. Tricuspid regurgitation envelope is inadequate for calculation of right ventricular systolic pressure. Great Vessels The asc aorta is normal in size. Venous The inferior vena cava is normal in size and collapses greater than 50% with inspiration. Pericardium/Pleural There is no evidence of pericardial effusion. Prior Study Comparison No significant change compared to prior study dated: 03/05/2022. Recommendations, Care & Conclusions No obvious valvular pathology seen on this study. Measurements 2D Linear Measurements IVSd: 1.01 0.6-0.9/0.6-1.0 cm LVIDd: 3.29 3.9-5.3/4.2-5.9 cm LVIDd Index: 1.78 2.4-3.2/2.2-3.1 cm/m2 LVIDs: 1.47 2.0-3.6 cm LVPWd: 1.02 0.7-1.1 cm LA Diam: 3.30 2.7-3.8/3.0-4.0 cm LAIDs Index: 1.78 1.5-2.3 cm/m2 LV Mass: 119.56 67-162/88-224 g LV Mass Index: 64.62 43-95/49-115 g/m2 LVOT Diam: 2.00 3.0+(-)1.3 cm 2D Systolic Function EF 4C: 57.90 >55% EF 2C: 51.70 >55% EF BiP: 54.00 >55% Mitral Valve MV Pk E: 0.63 MV PK A: 0.73 MV Decel Time: 463.00 E/A: 0.90 E'Lateral: 9.79 E'Medial: 6.31 E/E' Med: 9.90 E/E' Lat: 6.40 PHT: 136.00 MVA PHT: 1.62 Decel Wilkin: 1.35 Aortic Valve AoV Pk Greg: 1.05 AoV Mn Greg: 0.77 AoV VTI: 0.19 AoV Pk Grad: 4.00 Aov Mn Grad: 3.00 ARTIS Cont.VTI: 2.48 LVOT LVOT Pk Greg: 0.90 LVOT Mn Greg: 0.57 LVOT VTI: 0.15 LVOT Pk Grad: 3.00 LVOT Mn Grad: 2.00 LVOT Diam: 2.00 LVOT Area: 3.14 Diastolic Function MV Pk E: 0.63 MV Pk A: 0.73 E/A: 0.90 E'Medial: 6.31 E/E' Med: 9.90 E' Laterial: 9.79 E/E' Lat: 6.40 Right Ventricle TAPSE (mm): 16.60 TVS' Greg: 8.38 Tricuspid Valve RA Press: 8.00 Great Vessels Aorta Sinus of Valsalva: 3.70 2.0-3.5 cm Ao Asc: 3.30 2.1-3.4 cm Pulmonary Valve PV Pk Gerg: 1.05 Peak PV Grad: 4.00 Updated in Other Vendor System with Status of Final Sg Horton MD electronically signed on 06/25/2023 12:12:32 PM with status of Final
== END ==
LOC: HO.CARD 07:56
PROVIDERS: PCP Internal Medicine; Visit Provider Internal Medicine
DX: I50.22 Chronic systolic (congestive) heart failure (principal)
CPT/HCPCS: 93306; Q9957

== ENCOUNTER → 2023-06-23 08:00 | Outpatient (BNV) | payer MEDICARE, MEDICAID, SELFPAY | PROVIDERS: PCP Internal Medicine; Visit Provider Internal Medicine | DX: I50.22 Chronic systolic (congestive) heart failure (principal) | CPT/HCPCS: 93306 ==

== ENCOUNTER 2023-07-14 11:40 | Outpatient (REF) | payer MEDICARE, MEDICAID, SELFPAY | END 2023-07-14 11:41 | disposition home or self-care (01) | LOC: HO.LAB 11:40 | PROVIDERS: PCP Internal Medicine; Visit Provider Urology | DX: Z12.5 Encounter for screening for malignant neoplasm of prostate (principal) | CPT/HCPCS: 36415; 84153 ==

== ENCOUNTER 2023-07-16 13:01 | Emergency (ER) | payer MEDICARE, MEDICAID, SELFPAY ==
--- NOTE | ~2023-07-16 | CT_ITS ---
EXAMINATION: CT ABDOMEN AND PELVIS WITHOUT CONTRAST CLINICAL INFORMATION: Abdominal pain with nausea and vomiting COMPARISON: 08/31/2020 TECHNIQUE: Multidetector volumetric imaging was performed from the superior aspect of the liver through the pubic symphysis. Sagittal and coronal reformatted images were obtained on the technologist's workstation. This CT examination was performed using dose optimization techniques as appropriate, variously including the following: *Automated exposure control *Adjustment of mA and/or kV according to patient size (this includes techniques or standardized protocols for targeted exams where dose is matched to indication/reason for exam; i.e. extremities or head) *Use of iterative reconstruction technique DLP: 481 mGy-cm FINDINGS: LUNG BASES: Calcified granuloma seen in the left lower lobe LIVER, GALLBLADDER, AND BILIARY TREE: The liver is normal in size, shape, and attenuation. No focal hepatic lesion or biliary ductal dilatation is present. Status post cholecystectomy PANCREAS: Unremarkable. SPLEEN: Unremarkable. ADRENAL GLANDS: Unremarkable. KIDNEYS AND URETERS: The kidneys are normal in size, shape, and attenuation. No hydronephrosis, hydroureter seen. No perinephric stranding. Punctate calcification seen in the lower pole collecting system of the left kidney. BLADDER: Unremarkable. GASTROINTESTINAL TRACT: The small and large bowel are unremarkable. The appendix is not visualized however no evidence of acute appendicitis.. ABDOMINAL WALL: No significant hernia is appreciated. LYMPH NODES: Normal. VASCULAR: Unremarkable. PELVIC VISCERA: Metallic fiducial markers seen within the prostate. OSSEOUS STRUCTURES: No acute osseous process. CT/CT abdomen pelvis wo IV con IMPRESSION: No significant abnormality. Fleischner guidelines were followed.
--- NOTE | ~2023-07-16 | CT_ITS ---
CT head/brain wo IV con CLINICAL INFORMATION: Reason for Exam headache, vomiting COMPARISON: Prior CT December 2017 TECHNIQUE: Department standard protocol. This CT examination was performed using dose optimization techniques as appropriate, variously including the following: *Automated exposure control *Adjustment of mA and/or kV according to patient size (this includes techniques or standardized protocols for targeted exams where dose is matched to indication/reason for exam; i.e. extremities or head) *Use of iterative reconstruction technique DLP: 768 mGy-cm FINDINGS: CEREBRAL HEMISPHERES: There is no evidence of intra-axial or extra-axial mass, hemorrhage or acute infarct. BRAIN PARENCHYMA: Deep white matter and paraventricular hypoattenuation, nonspecific; most likely changes secondary to chronic ischemia due to microvascular angiopathy. SUBDURAL SPACE: No bleed. BASAL GANGLIA AND PINEAL GLAND: Unremarkable VENTRICLES: Ventricles are symmetrically mildly dilated, unchanged from prior exam probably sequela of renal atrophy. CEREBELLUM AND BRAINSTEM: No space-occupying mass, hemorrhage or acute infarct. CEREBELLOPONTINE ANGLES: No lesion found. ORBITS: No intraorbital mass. VESSELS: Unremarkable SKULL BASE: Unremarkable INCLUDED SINUSES AT SKULL BASE: Clear SKULL AND SKIN: No fracture or bone lesion found. CT/CT head/brain wo IV con IMPRESSION: - Deep white matter and periventricular hypoattenuation, nonspecific; most likely sequela of chronic microvascular angiopathy ischemia. -Symmetrically dilated ventricle, ventriculomegaly, could be sequela of degree of brain atrophy, please correlate clinically, does patient has symptom of NPH such as venous incontinence dementia?. No CT evidence of intracranial space-occupying mass, bleed or infarct.
[2023-07-16 13:08] VITALS: BP 148/88; PULSE 60; O2SAT 96
[2023-07-16 13:14] VITALS: BP 148/78; PULSE 53; RESP 20; TEMP 36.4; O2SAT 96; BMI 28.8
--- NOTE | 2023-07-16 13:17 | ECG_ITS ---
Test Reason : NAUSEA Blood Pressure : / mmHG Vent. Rate : 056 BPM Atrial Rate : 056 BPM P-R Int : 230 ms QRS Dur : 168 ms QT Int : 492 ms P-R-T Axes : 066 036 218 degrees QTc Int : 474 ms Sinus bradycardia with 1st degree A-V block Left bundle branch block Abnormal ECG When compared with ECG of 09-SEP-2020 10:45, T wave inversion more evident in Inferior leads Referred By: Rubi Landa Electronically Signed By:WHIT PAREDES
--- NOTE | 2023-07-16 13:31 | ED_ITS ---
HPI - Nausea/Vomiting/Diarrhea General Chief complaint: Nausea/Vomiting/Diarrhea Stated complaint: N/V,IRVIN PER EMS Time Seen by Provider: 07/16/23 13:16 Source: patient, family and EMS Mode of arrival: EMS Limitations: no limitations History of Present Illness HPI Narrative: 77-year-old Pashto-speaking male with history of vascular dementia, CVAs, cognitive impairment, HTN, CKD, TARA, BPH, HLD, GERD, lumbar DJD, hx gallstones who presents to the ER from home via EMS for evaluation of acute onset of upper abdominal pain, nausea, vomiting, headache that started this morning. History obtained with help of patient's daughter at the bedside. She states he was in his usual state of health yesterday. When he woke up today he was feeling unwell. He developed recurrent bilious vomiting and upper abdominal pain. He then developed a headache MD elicited complaint: nausea, vomiting, diarrhea, abdominal pain and other (headache) Onset (ago): hour(s) Description of vomiting: bilious Associated nausea: Yes Associated abdominal pain: Yes Location of pain: epigastric Radiation: diffuse Pain consistency: intermittent Severity: moderate Quality: cramping Exacerbating factors: none Relieving factors: none Associated symptoms: myalgias, headaches, loss of appetite, malaise and nausea/vomiting Related Data Previous Rx's Medication Instructions Recorded finasteride 5 mg tablet 5 mg PO DAILY #90 tabs 05/03/22 naproxen 500 mg tablet,delayed 500 mg PO Q12H PRN Breakthrough 06/15/22 release (EC-Naproxen) Pain, Moderate #60 tabs omeprazole 20 mg capsule,delayed 20 mg PO DAILY 90 days #90 caps 11/03/22 release cholecalciferol (vitamin D3) 50 50 mcg PO DAILY 90 days #90 caps 05/02/23 mcg (2,000 unit) capsule (Vitamin D3) lisinopril 30 mg tablet 30 mg PO DAILY #90 tabs 05/02/23 tamsulosin 0.4 mg capsule 0.4 mg PO DAILY 90 days #90 caps 05/02/23 atorvastatin 40 mg tablet 40 mg PO DAILY 90 days #90 tabs 05/04/23 Shower Chair #1 ea 07/11/23 furosemide 40 mg tablet 40 mg PO DAILY #90 tabs 07/12/23 ondansetron 4 mg disintegrating 4 mg PO Q8-12H PRN nausea and 07/16/23 tablet vomiting #7 tabs oseltamivir 75 mg capsule (Tamiflu) 75 mg PO BID 5 days #10 caps 07/16/23 Allergies Allergy/AdvReac Type Severity Reaction Status Date / Time codeine [CODEINE] Allergy Severe Facial Verified 07/16/23 13:10 Swelling pineapple [PINEAPPLE] Allergy Mild RASH Verified 07/16/23 13:10 Pork/Porcine Containing Allergy Mild ABDOMINAL Verified 07/16/23 13:10 Products PAIN, [PORK/PORCINE CONTAINING VOMITING PRODUCTS] Review of Systems Review of Systems: Yes all other systems are reviewed and are negative Gastrointestinal: Gastrointestinal: Reports nausea PMFSH Past Medical History Attestation statement: The following information was validated with the patient. Source: old records reviewed and nursing notes reviewed Medical History BPH (benign prostatic hyperplasia) Cholelithiasis CKD (chronic kidney disease) stage 3, GFR 30-59 ml/min Essential hypertension Essential hypertension Gallstone GERD (gastroesophageal reflux disease) LBBB (left bundle branch block) Leg edema Lumbar degenerative disc disease Obesity (BMI 30-39.9) Other and unspecified hyperlipidemia Prostate CA Pure hypercholesterolemia Stroke Umbilical hernia Urinary incontinence Surgical History H/O radical prostatectomy History of colonoscopy History of elbow surgery History of inguinal hernia repair Hx of appendectomy S/P TURP Family History Family History Father Medical history unknown Mother Alcoholic cirrhosis CVD (cardiovascular disease) Brother Prostate cancer Maternal Uncle Prostate cancer Brother Muscular dystrophy Sister Asthma CAD (coronary artery disease) Social History Social History Household Members: None Housing: Apartment Are you a primary care team coordinator scheduler to a significant other at home: No Do you presently have visiting nurse or other home services: Yes (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) Alcohol intake: current Alcohol intake frequency: a few times a month Alcohol type: beer Patient Tobacco Use Status: Never used Tobacco Smoked in Last 30 Days: No e-Cigarette/Vaping Use: Never Used Second Hand Smoke Exposure: No Use of substances other than those prescribed or required for medical reasons: No Advance Directives: No service: No Current occupational status: disabled Cognitive needs: Yes Hearing needs: No Vision needs: No Physical Exam Vital Signs: Vital Signs: Last Vital Signs Temp 98.2 F 07/16/23 14:02 Pulse 56 07/16/23 14:02 Resp 19 07/16/23 14:02 BP 140/69 H 07/16/23 14:02 Pulse Ox 97 07/16/23 14:02 O2 Del Method Room Air 07/16/23 14:02 BMI result Body Mass Index 28.8 Appearance: Alert. Oriented X2. No acute distress. Head: normocephalic, atraumatic. Eyes: Pupils equal, round and reactive to light. ENT: Pharynx normal. No tonsillar swelling or exudate. Neck: Normal inspection. Neck supple. CVS: Normal heart rate and rhythm. Pulses normal. Respiratory: No respiratory distress. Breath sounds normal. Abdomen: Softly distended with epigastric tenderness and periumbilical tenderness. +BS x4 Skin: Skin warm and dry. Normal skin color. Normal skin turgor. No rashes. Extremities: No lower extremity edema. No joint swelling. Neuro/psych: Oriented X 2. Grossly normal, nonfocal. CN II-XII intact. Normal speech and cognition. Medications Administered Discontinued Medications Generic Name Dose Route Start Last Admin Trade Name Freq PRN Reason Stop Dose Admin Sodium Chloride 1,000 mls @ 999 mls/hr 07/16/23 13:30 07/16/23 14:17 Ns IV 07/16/23 14:30 999 mls/hr .Q1H1M NISHI Administration Ondansetron HCl 4 mg 07/16/23 13:30 07/16/23 14:20 Ondansetron Hcl 4 Mg/2 Ml Vial IVPUSH 07/16/23 13:31 4 mg ONCE ONE Administration Medical Decision Making Medical Decision Making MDM Narrative: 77-year-old Pashto-speaking male with history of vascular dementia, CVAs, cognitive impairment, HTN, CKD, TARA, BPH, HLD, GERD, lumbar DJD, hx gallstones who presents to the ER from home via EMS for evaluation of acute onset of upper abdominal pain, nausea, vomiting, headache that started this morning. Abdomen soft with epigastric tenderness. Labs showing no significant metabolic derangement. No leukocytosis. CT scan unremarkable, no acute findings in his brain or abdomen. Patient found to have influenza B which explains his symptoms. At this time he is tolerating p.o. feeling much better after Zofran and fluids. He is stable for discharge home with supportive care. Family will stay with him tonight. Stable for discharge. Differential Diagnosis Differential Diagnoses: The differential diagnosis associated with the presentation includes viral syndrome, COVID, gastritis, pancreatitis, low suspicion for ICH, cholecystitis, appendicitis, or acute abdomen Admission/Observation Consideration of admission/observation: Escalation of care including admission/observation considered Elderly male with abdominal pain and vomiting, improved with treatment so did not require admission Lab Data MDM Lab Attestation statement: I reviewed the patient's lab results. 07/16/23 14:16 07/16/23 14:16 Labs: Lab Results 07/16/23 07/16/23 07/16/23 Range/Units 14:10 14:10 14:16 WBC 8.9 (4.8-10.8) X10*3/uL RBC 5.31 (4.60-5.80) X10*6/uL Hgb 13.1 L (14.0-18.0) g/dl Hct 41.0 L (42.0-52.0) % MCV 77.2 L (80.0-98.0) fL MCH 24.7 L (27.0-33.0) pg MCHC 32.0 (31.0-36.0) g/dl RDW 18.4 H (11.0-16.0) % Plt Count 215 (160-400) X10*3/uL MPV 10.2 (9.4-12.4) fL Immature Gran % (Auto) 0.3 (0.0-0.4) % Neut % (Auto) 78.2 H (45-73) % Lymph % (Auto) 13.9 L (20-40) % Avery % (Auto) 6.2 (2-11) % Eos % (Auto) 0.8 (0-4) % Baso % (Auto) 0.6 (0-2) % Lymph # (Auto) 1.2 (1.2-4.9) X10*3/uL Avery # (Auto) 0.6 (0.1-1.2) X10*3/uL Eos # (Auto) 0.1 (0.0-0.4) X10*3/uL Baso # (Auto) 0.1 (0.0-0.2) X10*3/uL Abs Immat Gran (auto) 0.03 (0.00-0.03) X10*3/uL Absolute Neuts (auto) 6.9 (2.0-8.3) x10*3/uL Absolute Nucleated RBC 0.000 (0.0-0.012) X10*3/uL Nucleated RBC % (auto) 0.0 (0.0-0.2) /100WBC Sodium (135-145) mmol/L Potassium (3.3-5.1) mmol/L Chloride (96-108) mmol/L Carbon Dioxide (22-29) mmol/L Anion Gap (12-20) BUN (9-16) mg/dL Creatinine (0.5-1.4) mg/dL Estim Creat Clear Calc Estimated GFR Random Glucose (60-115) mg/dL Calcium (8.4-10.2) mg/dL Magnesium (1.6-2.6) mg/dL Total Bilirubin (0.0-1.0) mg/dL Direct Bilirubin (0.0-0.5) mg/dL AST (5-37) U/L ALT (0-40) U/L Alkaline Phosphatase (39-117) U/L Total Protein (6.5-8.0) g/dL Albumin (3.5-5.0) g/dL Lipase (8-78) U/L COVID-19 (RAUL) Negative (Negative) COVID-19 Clin Com See Note Influenza Type A (TANIA) Negative (Negative) Influenza Type B (TANIA) Positive A (Negative) Influenza A & B Note See Note 07/16/23 07/16/23 Range/Units 14:16 14:16 WBC (4.8-10.8) X10*3/uL RBC (4.60-5.80) X10*6/uL Hgb (14.0-18.0) g/dl Hct (42.0-52.0) % MCV (80.0-98.0) fL MCH (27.0-33.0) pg MCHC (31.0-36.0) g/dl RDW (11.0-16.0) % Plt Count (160-400) X10*3/uL MPV (9.4-12.4) fL Immature Gran % (Auto) (0.0-0.4) % Neut % (Auto) (45-73) % Lymph % (Auto) (20-40) % Avery % (Auto) (2-11) % Eos % (Auto) (0-4) % Baso % (Auto) (0-2) % Lymph # (Auto) (1.2-4.9) X10*3/uL Avery # (Auto) (0.1-1.2) X10*3/uL Eos # (Auto) (0.0-0.4) X10*3/uL Baso # (Auto) (0.0-0.2) X10*3/uL Abs Immat Gran (auto) (0.00-0.03) X10*3/uL Absolute Neuts (auto) (2.0-8.3) x10*3/uL Absolute Nucleated RBC (0.0-0.012) X10*3/uL Nucleated RBC % (auto) (0.0-0.2) /100WBC Sodium 141 (135-145) mmol/L Potassium 3.6 (3.3-5.1) mmol/L Chloride 102 (96-108) mmol/L Carbon Dioxide 28 (22-29) mmol/L Anion Gap 15 (12-20) BUN 15 (9-16) mg/dL Creatinine 1.29 (0.5-1.4) mg/dL Estim Creat Clear Calc 46.3 Estimated GFR 54 Random Glucose 123 H (60-115) mg/dL Calcium 9.7 (8.4-10.2) mg/dL Magnesium 1.9 (1.6-2.6) mg/dL Total Bilirubin 0.8 (0.0-1.0) mg/dL Direct Bilirubin 0.3 (0.0-0.5) mg/dL AST 39 H (5-37) U/L ALT 62 H (0-40) U/L Alkaline Phosphatase 87 (39-117) U/L Total Protein 6.9 (6.5-8.0) g/dL Albumin 4.0 (3.5-5.0) g/dL Lipase 66 (8-78) U/L COVID-19 (RAUL) (Negative) COVID-19 Clin Com Influenza Type A (TANIA) (Negative) Influenza Type B (TANIA) (Negative) Influenza A & B Note Independent Interpretation I performed an independent interpretation of an: CT Scan Interpretation: EKG with LBBB, old from prior, HR 56 bpm, no ST segment elevations or depressions. no new changes CT head without acute bleed or edema CT head w/ dilated stomach, no acute finding, agree w/ radiology read Radiology Impression Discussion of test interpretation with radiology: I have reviewed the radiologist's reading. Radiologist Impression: CT/CT head/brain wo IV con IMPRESSION: ? - Deep white matter and periventricular hypoattenuation, nonspecific; most likely sequela of chronic microvascular angiopathy ischemia. ? -Symmetrically dilated ventricle, ventriculomegaly, could be sequela of degree of brain atrophy, please correlate clinically, does patient has symptom of NPH such as venous incontinence dementia?. ? No CT evidence of intracranial space-occupying mass, bleed or infarct. EXAMINATION: CT ABDOMEN AND PELVIS WITHOUT CONTRAST? CLINICAL INFORMATION: Abdominal pain with nausea and vomiting? COMPARISON: 08/31/2020 TECHNIQUE: Multidetector volumetric imaging was performed from the superior aspect of the liver through the pubic symphysis. Sagittal and coronal reformatted images were obtained on the technologist's workstation.? This CT examination was performed using dose optimization techniques as appropriate, variously including the following: *Automated exposure control *Adjustment of mA and/or kV according to patient size (this includes techniques or standardized protocols for targeted exams where dose is matched to indication/reason for exam; i.e. extremities or head) *Use of iterative reconstruction technique DLP: 481 mGy-cm FINDINGS: LUNG BASES: Calcified granuloma seen in the left lower lobe? LIVER, GALLBLADDER, AND BILIARY TREE: The liver is normal in size, shape, and attenuation. No focal hepatic lesion or biliary ductal dilatation is present. Status post cholecystectomy? PANCREAS: Unremarkable.? SPLEEN: Unremarkable.? ADRENAL GLANDS: Unremarkable.? KIDNEYS AND URETERS: The kidneys are normal in size, shape, and attenuation. No hydronephrosis, hydroureter seen. No perinephric stranding. Punctate calcification seen in the lower pole collecting system of the left kidney. BLADDER: Unremarkable.? GASTROINTESTINAL TRACT: The small and large bowel are unremarkable. The appendix is not visualized however no evidence of acute appendicitis.. ABDOMINAL WALL: No significant hernia is appreciated.? LYMPH NODES: Normal. VASCULAR: Unremarkable. PELVIC VISCERA: Metallic fiducial markers seen within the prostate.? OSSEOUS STRUCTURES: No acute osseous process.? CT/CT abdomen pelvis wo IV con IMPRESSION: No significant abnormality. Independent Historian Clinical information obtained from an independent historian. History obtained from or confirmed by: EMS and Other (adult daughter) External Record Review External record reviewed: Outpatient record and Prior outpatient labs Prescription Management I considered prescription management with: Pain Medication and Antiviral Chronic Conditions Patient?s care impacted by: Diabetes, Hypertension and Other (dementia) Social Determinants Patient?s care significantly limited by Social Determinants of Health including: Other Social Determinant of Health (lives home alone) Critical Care Time Critical Care Time Critical Care Time: No Discharge Plan Discharge Clinical Impression: Influenza B Patient Disposition: Home, Self-Care Instructions: Influenza (DC) Additional Instructions: Your workup today showed you have influenza B which is what is causing your symptoms. Take the prescribed nausea medication under the tongue as needed. Rest and stay hydrated, make sure drinking plenty of fluids. Stick to a bland diet where not feeling well. Take Tylenol as needed for headaches. Follow up with your doctor. If you develop new or worsening symptoms call 911 or come back to the ER for further evaluation. Gaffney examen de hoy mostr? que tiene influenza B, que es la que est? causando iona s?ntomas. [place] el medicamento recetado para las n?useas debajo de la lengua seg?n sea necesario. Descanse y mant?ngase hidratado, aseg?rese de beber muchos l?quidos. Siga felix dieta blanda cuando no se sienta donaldo. [place] Tylenol seg?n sea necesario para los pratima de bradley. [place] un seguimiento con gaffney m?dico. Si desarrolla s?ntomas nuevos o que empeoran, llame al 911 o regrese a la ap de emergencias para felix evaluaci?n adicional. Prescriptions: New oseltamivir [Tamiflu] 75 mg capsule 75 mg PO BID 5 Days Qty: 10 0RF ondansetron 4 mg tablet,disintegrating 4 mg PO Q8-12H PRN (Reason: nausea and vomiting) Qty: 7 0RF No Action finasteride 5 mg tablet 5 mg PO DAILY Qty: 90 2RF omeprazole 20 mg capsule,delayed release(DR/EC) 20 mg PO DAILY 90 Days Qty: 90 3RF cholecalciferol (vitamin D3) [Vitamin D3] 50 mcg (2,000 unit) capsule 50 mcg PO DAILY 90 Days Qty: 90 1RF lisinopril 30 mg tablet 30 mg PO DAILY Qty: 90 1RF tamsulosin 0.4 mg capsule 0.4 mg PO DAILY 90 Days Qty: 90 1RF atorvastatin 40 mg tablet 40 mg PO DAILY 90 Days Qty: 90 3RF (DME) Shower Chair Misc See Rx Instructions .Route Qty: 1 0RF Rx Instructions: As directed furosemide 40 mg tablet 40 mg PO DAILY Qty: 90 3RF naproxen [EC-Naproxen] 500 mg Tablet,Delayed Release (Dr/Ec) 500 mg PO Q12H PRN (Reason: Breakthrough Pain, Moderate) Qty: 60 3RF Referrals: Leighann Valles MD [Primary Care Provider] - Print Language: Pashto
[2023-07-16 14:02] VITALS: BP 140/69; PULSE 56; RESP 19; TEMP 36.8; O2SAT 97
[2023-07-16] MEDS: 0.9 % Sodium Chloride 1,000 ML 999 ML IV (14:17)
[2023-07-16] MEDS: ondansetron HCL 4 MG/2 ML VIAL IVPUSH (14:20)
[2023-07-16 14:22] LABS: MANUAL DIFF FLAG NO
[2023-07-16 14:23] LABS: Basophils Absolute Auto 0.1 X10*3/uL (0.0-0.2); Basophils Percent Auto 0.6 % (0-2); Eosinophils Absolute Auto 0.1 X10*3/uL (0.0-0.4); Eosinophils Percent Auto 0.8 % (0-4); Hemoglobin 13.1 g/dl (14.0-18.0); Imm Gran Abs Auto 0.03 X10*3/uL (0.00-0.03); Imm Gran Pct Auto 0.3 % (0.0-0.4); Lymphocytes Absolute Auto 1.2 X10*3/uL (1.2-4.9); Lymphocytes Percent Auto 13.9 % (20-40); Mean Corpuscular Hemoglobin 24.7 pg (27.0-33.0); Mean Corpuscular Volume 77.2 fL (80.0-98.0); Mean Platelet Volume 10.2 fL (9.4-12.4); Monocytes Absolute Auto 0.6 X10*3/uL (0.1-1.2); Monocytes Percent Auto 6.2 % (2-11); Neutrophils Absolute Auto 6.9 x10*3/uL (2.0-8.3); Neutrophils Percent Auto 78.2 % (45-73); Platelet Count 215 X10*3/uL (160-400); Red Blood Count 5.31 X10*6/uL (4.60-5.80); Red Cell Distribution Width 18.4 % (11.0-16.0); White Blood Count 8.9 X10*3/uL (4.8-10.8)
[2023-07-16 14:33] LABS: COVID-19 Test Negative (Negative); IDNOW Serial# 55D5AD1C
[2023-07-16 14:36] LABS: IDNOW Serial# 08D9AD1C; Influenza A Negative (Negative); Influenza B2 Positive (Negative)
[2023-07-16 14:36] LABS: Lipase 66 U/L (8-78)
[2023-07-16 14:39] LABS: Alanine Aminotransferase 62 U/L (0-40); Alkaline Phosphatase 87 U/L (39-117); Anion Gap 15 (12-20); Aspartate Amino Transferase 39 U/L (5-37); Bilirubin Direct 0.3 mg/dL (0.0-0.5); Bilirubin Total 0.8 mg/dL (0.0-1.0); Blood Urea Nitrogen 15 mg/dL (9-16); Calcium 9.7 mg/dL (8.4-10.2); Carbon Dioxide 28 mmol/L (22-29); Chloride 102 mmol/L (96-108); Creatinine Clr Calc Pharmacy 46.3; Estimated Glomerular Filt Rate 54; Glucose Random 123 mg/dL (60-115); Magnesium 1.9 mg/dL (1.6-2.6); Potassium 3.6 mmol/L (3.3-5.1); Sodium 141 mmol/L (135-145); Total Protein 6.9 g/dL (6.5-8.0)
== END 2023-07-16 15:34 | disposition home or self-care (01) ==
PROVIDERS: Physician Assistant; Emergency Provider Student in an Organized Health Care Education/Training Program; PCP Internal Medicine
DX: J10.1 Influenza due to other identified influenza virus with other respiratory manifestations (principal); R11.2 Nausea with vomiting, unspecified; Z20.822 Contact with and (suspected) exposure to COVID-19; I13.0 Hypertensive heart and chronic kidney disease with heart failure and stage 1 through stage 4 chronic kidney disease, or unspecified chronic kidney disease; N18.30 Chronic kidney disease, stage 3 unspecified; I50.22 Chronic systolic (congestive) heart failure; E78.5 Hyperlipidemia, unspecified; Z86.73 Personal history of transient ischemic attack (TIA), and cerebral infarction without residual deficits
CPT/HCPCS: 36415; 70450; 74176; 80048; 80076; 83690; 83735; 85025; 87502; 87635; 93005; 96361; 96374; 99284; J2405

== ENCOUNTER 2023-07-27 13:47 | Observation (INO) | payer MEDICARE, MEDICAID, SELFPAY ==
[2023-07-27] VITALS (8 sets, daily range): BP systolic 92–144; BP diastolic 50–74; PULSE 59–100; RESP 14–19; TEMP 36.6–36.8; O2SAT 95–100; BMI 18.8
--- NOTE | ~2023-07-27 | CT_ITS ---
EXAMINATION: CT ANGIOGRAM OF THE CHEST WITH CONTRAST (CT PULMONARY ANGIOGRAM FOR PE) CLINICAL INFORMATION: Chest pain and syncope. COMPARISON: No pertinent prior studies are available for comparison. TECHNIQUE: Prior to contrast administration, noncontrast localization images were obtained. Subsequently, multidetector volumetric imaging was performed from the thoracic inlet to below the diaphragms following the administration of 65 mL Omnipaque 350 intravenous contrast. No contrast reaction reported. Sagittal, coronal, and MIP oblique sagittal reformatted images were obtained on the CT workstation, uploaded to PACS, and reviewed. This CT examination was performed using dose optimization techniques as appropriate, variously including the following: *Automated exposure control *Adjustment of mA and/or kV according to patient size (this includes techniques or standardized protocols for targeted exams where dose is matched to indication/reason for exam; i.e. extremities or head) *Use of iterative reconstruction technique DLP: Total exam dose-length product 353 mGy-cm FINDINGS: LUNGS AND PLEURA: Lungs are well expanded. Mild centrilobular emphysema. Mild respiratory motion on the images of the chest. No evidence of interstitial lung disease. No consolidation, mass or pleural effusion. QUALITY OF STUDY/CONTRAST BOLUS: Satisfactory. PULMONARY ARTERIES: The pulmonary arteries are normal in size. No embolic filling defects within the main, lobar or segmental vessels. OTHER CARDIOVASCULAR: The heart size is normal. No pericardial effusion. Mild atherosclerotic calcification of the thoracic aorta without aneurysm or dissection. MEDIASTINUM/LOWER NECK: No mediastinal mass. Thyroid gland and esophagus are grossly unremarkable. LYMPHATICS: No pathologic sized axillary, hilar or mediastinal lymph nodes. UPPER ABDOMEN: Cholecystectomy. Adrenal glands are normal. OSSEOUS STRUCTURES: Multilevel discovertebral degenerative change with osteophyte formation of the visualized cervical and thoracic spine. No acute or suspicious osseous abnormality. Mild osteoarthritis of glenohumeral joints. CT/CT angio chest PE protocol IMPRESSION: No acute imaging findings within the chest. No evidence of pulmonary embolism.
--- NOTE | ~2023-07-27 | CT_ITS ---
EXAMINATION: CT head/brain wo IV con CLINICAL INFORMATION: Reason for Exam syncope COMPARISON: CT head 07/16/2023 TECHNIQUE: Contiguous axial imaging was performed from the skull base to vertex without intravenous contrast. Sagittal and coronal reformatted images were obtained. This CT examination was performed using dose optimization techniques as appropriate, variously including the following: * Automated exposure control * Adjustment of mA and/or kV according to patient size (this includes techniques or standardized protocols for targeted exams where dose is matched to indication/reason for exam; i.e. extremities or head) Use of iterative reconstruction technique DLP: 733 mGy-cm FINDINGS: Stable moderate global cerebral volume loss with somewhat disproportionate ventriculomegaly relative to sulcal prominence however without additional ancillary features to suggest superimposed normal pressure hydrocephalus though can be correlated clinically. Patchy periventricular and deep white matter hypoattenuation is nonspecific but likely reflects sequelae of moderate chronic microangiopathy, unchanged. No territorial loss of daniels-white differentiation. No acute intracranial hemorrhage or extra-axial fluid collection. No mass lesion, significant mass effect, or herniation pattern. Bilateral lens replacements. Medial bowing of the left lamina papyracea may reflect a chronic fracture deformity. Partially imaged left maxillary sinus retention cyst/polyp. No mastoid effusion. Osseous structures are intact. CT/CT head/brain wo IV con IMPRESSION: No acute intracranial abnormality. Specifically, no CT evidence of acute intracranial hemorrhage, significant mass effect, hydrocephalus, or large territorial infarction. Stable additional chronic findings as above.
--- NOTE | 2023-07-27 07:50 | ECG_ITS ---
Test Reason : UNRESPONSIVE Blood Pressure : / mmHG Vent. Rate : 064 BPM Atrial Rate : 064 BPM P-R Int : 190 ms QRS Dur : 154 ms QT Int : 466 ms P-R-T Axes : 077 054 193 degrees QTc Int : 480 ms Poor data quality, interpretation may be adversely affected Normal sinus rhythm Left bundle branch block Abnormal ECG When compared with ECG of 16-JUL-2023 14:06, [place] interval has decreased Referred By: Hector Alexander Electronically Signed By:WHIT PAREDES
--- NOTE | 2023-07-27 14:10 | ED.SYNCOPE ---
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 He started to shake and told her he had chest pain. He then slumped forward and had 3 minutes of decreased responsiveness she reports LOC. No seizure activity. He is a poor historian and cannot provide much history other than his arms hurt right now. When EMS arrived the patient was hypotensive with BP 80s, hypoxic in 80s, BS 120s and unresponsive. On waking the patient c/o bilateral arm pain. The notes he ate breakfast and had a normal day. He tells me he is feeling better right now. MD complaint: loss of consciousness Onset (ago): minute(s) (just prior to arrival ) Duration of episode: 3 -: minutes(s) Description of event: other (pale diaphoretic low BP and hypoxic) Prodromal symptoms: chest pain Witnessed: Yes - by Bystander Context: at rest (did just walk to bus stop) Injuries sustained associated with event: none (partner was able to help him sit down on her walker) Current symptoms: other (c/o arm pain) Treatments prior to arrival: IV fluids Related Data Previous Rx's Medication Instructions Recorded finasteride 5 mg tablet 5 mg PO DAILY #90 tabs 05/03/22 naproxen 500 mg tablet,delayed 500 mg PO Q12H PRN Breakthrough 06/15/22 release (EC-Naproxen) Pain, Moderate #60 tabs omeprazole 20 mg capsule,delayed 20 mg PO DAILY 90 days #90 caps 11/03/22 release cholecalciferol (vitamin D3) 50 50 mcg PO DAILY 90 days #90 caps 05/02/23 mcg (2,000 unit) capsule (Vitamin D3) lisinopril 30 mg tablet 30 mg PO DAILY #90 tabs 05/02/23 tamsulosin 0.4 mg capsule 0.4 mg PO DAILY 90 days #90 caps 05/02/23 atorvastatin 40 mg tablet 40 mg PO DAILY 90 days #90 tabs 05/04/23 furosemide 40 mg tablet 40 mg PO DAILY #90 tabs 07/12/23 ondansetron 4 mg disintegrating 4 mg PO Q8-12H PRN nausea and 07/16/23 tablet vomiting #7 tabs oseltamivir 75 mg capsule (Tamiflu) 75 mg PO BID 5 days #10 caps 07/16/23 Shower Chair #1 ea 07/21/23 Allergies Allergy/AdvReac Type Severity Reaction Status Date / Time codeine [CODEINE] Allergy Severe Facial Verified 07/16/23 13:10 Swelling pineapple [PINEAPPLE] Allergy Mild RASH Verified 07/16/23 13:10 Pork/Porcine Containing Allergy Mild ABDOMINAL Verified 07/27/23 13:50 Products PAIN, [PORK/PORCINE CONTAINING VOMITING PRODUCTS] Review of Systems Review of Systems: Constitutional : No Weight loss, No Fever, No Chills Cardiovascular : pos Chest Pain, no SOB, no Dyspnea on Exertion, No Orthopnea, No Edema, No Palpitations Respiratory : No Cough, No Sputum Gastrointestinal : pos Nausea, No Vomiting, No Diarrhea, No abdominal Pain, No Hematochezia, No Melena Genitourinary : No Dysuria, No Urinary Frequency Musculoskeletal : No joint pain, No Myalgias, No Joint Swelling Skin : No Skin Lesions, No rash Neuro : No Weakness, No Numbness, No Dizziness, No Headache, pos syncope Psych : No Anxiety/Panic, No Depression All other systems reviewed and are negative [facility] Past Medical History Attestation statement: The following information was validated with the patient. Medical History BPH (benign prostatic hyperplasia) Cholelithiasis CKD (chronic kidney disease) stage 3, GFR 30-59 ml/min Essential hypertension Essential hypertension Gallstone GERD (gastroesophageal reflux disease) LBBB (left bundle branch block) Leg edema Lumbar degenerative disc disease Obesity (BMI 30-39.9) Other and unspecified hyperlipidemia Prostate CA Pure hypercholesterolemia Stroke Umbilical hernia Urinary incontinence Surgical History H/O radical prostatectomy History of colonoscopy History of elbow surgery History of inguinal hernia repair Hx of appendectomy S/P TURP Family History Family History Father Medical history unknown Mother Alcoholic cirrhosis CVD (cardiovascular disease) Brother Prostate cancer Maternal Uncle Prostate cancer Brother Muscular dystrophy Sister Asthma CAD (coronary artery disease) Social History Social History Household Members: None Housing: Apartment Are you a primary daytime caregiver to a significant other at home: No Do you presently have visiting nurse 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) Alcohol intake: current Alcohol intake frequency: holidays/special occasions only Alcohol type: beer Patient Tobacco Use Status: Never used Tobacco Smoked in Last 30 Days: No e-Cigarette/Vaping Use: Never Used Second Hand Smoke Exposure: No Use of substances other than those prescribed or required for medical reasons: No Advance Directives: No Advance Directives Information Provided: Yes service: No Current occupational status: disabled Cognitive needs: Yes Hearing needs: No Vision needs: No Physical Exam Vital Signs: Vital Signs: Last Vital Signs Temp 98.3 F 07/27/23 14:33 Pulse 67 07/27/23 14:33 Resp 18 07/27/23 13:50 BP 107/57 L 07/27/23 14:33 Pulse Ox 100 07/27/23 14:33 O2 Del Method Room Air 07/27/23 14:33 Oxygen Flow Rate 4 07/27/23 13:50 BMI result Body Mass Index 18.8 Appearance: Alert. Oriented X at baseline to person and place. No acute distress. Eyes: Pupils equal, round and reactive to light. ENT: Pharynx normal. Neck: Normal inspection. Neck supple. CVS: Normal heart rate and rhythm. Pulses normal. Respiratory: No respiratory distress. Breath sounds normal. Abdomen: Soft and non-tender. no pulsatile mass felt Skin: Skin warm and dry. Pale and clammy Extremities: No lower extremity edema. No calf ttp Neuro: Oriented X to person and place. No motor deficit. No sensory deficit. Course Course Course Narrative: CTA normal, feeling better, VS stable, repeat trop pending Reevaluation(s) Reevaluation #1: signed out to Dr. Blair Medications Administered Discontinued Medications Generic Name Dose Route Start Last Admin Trade Name Freq PRN Reason Stop Dose Admin Sodium Chloride 500 mls @ 500 mls/hr 07/27/23 14:00 07/27/23 16:30 Ns IV 09/06/23 14:59 Infused .Q1H NISHI Infusion Iohexol 65 ml 07/27/23 14:22 07/27/23 14:22 Iohexol 350 Mg/Ml 100 Ml Infus..Btl IV 07/27/23 14:23 65 ml ONCE ONE Administration Medical Decision Making Medical Decision Making [facility] Narrative: 77 yo male with hx of dementia, CHF EF 40%, LBBB, TARA, HTN, TARA, prostate cancer, HLD, BPH here with syncopal event with preceding chest pain - found then hypotensive and hypoxic. He was sat down by his partner no head trauma he is at baseline and has no headache he c/o arm pain. I have sent him over for STAT angio of chest. He has no abdominal pain at this time. Could be ACS - has LBBB at baseline, troponin was sent off. He will be given fluids and labs/EKG ordered. His pain is mild at this time. He denies infectious symptoms - BP was due to syncopal event and not infection or severe sepsis. Differential Diagnosis Differential Diagnoses: The differential diagnosis associated with the presentation includes syncope, ACS, dissection, VTE, anemia, dehydration Admission/Observation Consideration of admission/observation: Escalation of care including admission/observation considered admit for PAXTON and syncope Lab Data [facility] Lab Attestation statement: I reviewed the patient's lab results. 07/27/23 14:31 07/27/23 14:31 Labs: Lab Results 07/27/23 07/27/23 07/27/23 Range/Units 14:31 14:31 14:31 WBC 6.0 (4.8-10.8) X10*3/uL RBC 5.01 (4.60-5.80) X10*6/uL Hgb 12.5 L (14.0-18.0) g/dl Hct 39.8 L (42.0-52.0) % MCV 79.4 L (80.0-98.0) fL MCH 25.0 L (27.0-33.0) pg MCHC 31.4 (31.0-36.0) g/dl RDW 18.6 H (11.0-16.0) % Plt Count 198 (160-400) X10*3/uL MPV 11.8 (9.4-12.4) fL Immature Gran % (Auto) 0.5 H (0.0-0.4) % Neut % (Auto) 74.3 H (45-73) % Lymph % (Auto) 15.1 L (20-40) % Bullock % (Auto) 8.6 (2-11) % Eos % (Auto) 0.7 (0-4) % Baso % (Auto) 0.8 (0-2) % Lymph # (Auto) 0.9 L (1.2-4.9) X10*3/uL Bullock # (Auto) 0.5 (0.1-1.2) X10*3/uL Eos # (Auto) 0.0 (0.0-0.4) X10*3/uL Baso # (Auto) 0.1 (0.0-0.2) X10*3/uL Abs Immat Gran (auto) 0.03 (0.00-0.03) X10*3/uL Absolute Neuts (auto) 4.5 (2.0-8.3) x10*3/uL Absolute Nucleated RBC 0.000 (0.0-0.012) X10*3/uL Nucleated RBC % (auto) 0.0 (0.0-0.2) /100WBC PT 13.8 H (11.1-13.3) SEC INR 1.1 (0.9-1.1) Sodium 138 (135-145) mmol/L Potassium 4.2 (3.3-5.1) mmol/L Chloride 105 (96-108) mmol/L Carbon Dioxide 24 (22-29) mmol/L Anion Gap 13 (12-20) BUN 21 H (9-16) mg/dL Creatinine 2.20 H (0.5-1.4) mg/dL Estim Creat Clear Calc 22.9 Estimated GFR 29 Random Glucose 117 H (60-115) mg/dL Calcium 9.2 (8.4-10.2) mg/dL Magnesium 1.8 (1.6-2.6) mg/dL Total Bilirubin 1.4 H (0.0-1.0) mg/dL Direct Bilirubin 0.4 (0.0-0.5) mg/dL AST 25 (5-37) U/L ALT 37 (0-40) U/L Alkaline Phosphatase 89 (39-117) U/L Total Creatine Kinase (38-174) U/L Troponin I High Sens (<3.5-35.0) ng/L Total Protein 6.3 L (6.5-8.0) g/dL Albumin 3.7 (3.5-5.0) g/dL Lipase 46 (8-78) U/L 07/27/23 07/27/23 Range/Units 14:31 14:31 WBC (4.8-10.8) X10*3/uL RBC (4.60-5.80) X10*6/uL Hgb (14.0-18.0) g/dl Hct (42.0-52.0) % MCV (80.0-98.0) fL MCH (27.0-33.0) pg MCHC (31.0-36.0) g/dl RDW (11.0-16.0) % Plt Count (160-400) X10*3/uL MPV (9.4-12.4) fL Immature Gran % (Auto) (0.0-0.4) % Neut % (Auto) (45-73) % Lymph % (Auto) (20-40) % Bullock % (Auto) (2-11) % Eos % (Auto) (0-4) % Baso % (Auto) (0-2) % Lymph # (Auto) (1.2-4.9) X10*3/uL Bullock # (Auto) (0.1-1.2) X10*3/uL Eos # (Auto) (0.0-0.4) X10*3/uL Baso # (Auto) (0.0-0.2) X10*3/uL Abs Immat Gran (auto) (0.00-0.03) X10*3/uL Absolute Neuts (auto) (2.0-8.3) x10*3/uL Absolute Nucleated RBC (0.0-0.012) X10*3/uL Nucleated RBC % (auto) (0.0-0.2) /100WBC PT (11.1-13.3) SEC INR (0.9-1.1) Sodium (135-145) mmol/L Potassium (3.3-5.1) mmol/L Chloride (96-108) mmol/L Carbon Dioxide (22-29) mmol/L Anion Gap (12-20) BUN (9-16) mg/dL Creatinine (0.5-1.4) mg/dL Estim Creat Clear Calc Estimated GFR Random Glucose (60-115) mg/dL Calcium (8.4-10.2) mg/dL Magnesium (1.6-2.6) mg/dL Total Bilirubin (0.0-1.0) mg/dL Direct Bilirubin (0.0-0.5) mg/dL AST (5-37) U/L ALT (0-40) U/L Alkaline Phosphatase (39-117) U/L Total Creatine Kinase 111 (38-174) U/L Troponin I High Sens 12.7 (<3.5-35.0) ng/L Total Protein (6.5-8.0) g/dL Albumin (3.5-5.0) g/dL Lipase (8-78) U/L Independent Interpretation I performed an independent interpretation of an: EKG and CT Scan (no dissection/PE) Interpretation: Rate: 64 Rhythm: NSR Evans: left Normal P waves. Normal GIULIANA. LBBB ST T wave : inverted t waves II, lateral leads I aVL, V4-V6 no CHELSY qTC: 480 slightly prolonged prior studies: no acute ischemia unchanged from prior The study has been interpreted contemporaneously by me. . Radiology Impression Discussion of test interpretation with radiology: I have reviewed the radiologist's reading. Independent Historian Clinical information obtained from an independent historian. History obtained from or confirmed by: Spouse and EMS External Record Review External record reviewed: Inpatient record and Office record Discharge Plan Discharge Clinical Impression: PAXTON (acute kidney injury) Syncope Qualifiers: Syncope type: unspecified Qualified Code(s): R55 - Syncope and collapse Patient Disposition: Admitted As Inpatient
--- NOTE | 2023-07-27 14:15 | PC.NURSE ---
anderson after being found unresponsive outside of his home with a puddle of sweat underneath him. called ambulance. unknown time down. pt was incoherent until after fluids. stated that he had left sided chest pain prior to becoming unresponsive.
--- NOTE | 2023-07-27 14:20 | PC.NURSE ---
pt to CT scan
[2023-07-27] MEDS: iohexoL 350 MG/ML 100 ML INFUS..BTL 65 ML IV (14:22)
--- NOTE | 2023-07-27 14:30 | PC.NURSE ---
18g IV in left AC placed by ems during transport. provider bedside. ekg performed, viewed by ED provider and documented. pt being transferred to CT.
[2023-07-27 14:39] LABS: MANUAL DIFF FLAG NO
[2023-07-27] MEDS: 0.9 % Sodium Chloride 500 ML IV ×2 (14:41→16:54)
[2023-07-27 14:44] LABS: Basophils Absolute Auto 0.1 X10*3/uL (0.0-0.2); Basophils Percent Auto 0.8 % (0-2); Eosinophils Percent Auto 0.7 % (0-4); Hematocrit 39.8 % (42.0-52.0); Hemoglobin 12.5 g/dl (14.0-18.0); Imm Gran Abs Auto 0.03 X10*3/uL (0.00-0.03); Imm Gran Pct Auto 0.5 % (0.0-0.4); Lymphocytes Absolute Auto 0.9 X10*3/uL (1.2-4.9); Lymphocytes Percent Auto 15.1 % (20-40); Mean Corpuscular HGB Conc 31.4 g/dl (31.0-36.0); Mean Corpuscular Volume 79.4 fL (80.0-98.0); Mean Platelet Volume 11.8 fL (9.4-12.4); Monocytes Absolute Auto 0.5 X10*3/uL (0.1-1.2); Monocytes Percent Auto 8.6 % (2-11); Neutrophils Absolute Auto 4.5 x10*3/uL (2.0-8.3); Neutrophils Percent Auto 74.3 % (45-73); Platelet Count 198 X10*3/uL (160-400); Red Blood Count 5.01 X10*6/uL (4.60-5.80); Red Cell Distribution Width 18.6 % (11.0-16.0)
[2023-07-27 14:49] LABS: INTERNATIONAL NORM RATIO 1.1 (0.9-1.1); Prothrombin Time 13.8 SEC (11.1-13.3)
[2023-07-27 14:56] LABS: Alanine Aminotransferase 37 U/L (0-40); Albumin Level 3.7 g/dL (3.5-5.0); Alkaline Phosphatase 89 U/L (39-117); Anion Gap 13 (12-20); Aspartate Amino Transferase 25 U/L (5-37); Bilirubin Direct 0.4 mg/dL (0.0-0.5); Bilirubin Total 1.4 mg/dL (0.0-1.0); Blood Urea Nitrogen 21 mg/dL (9-16); Calcium 9.2 mg/dL (8.4-10.2); Carbon Dioxide 24 mmol/L (22-29); Chloride 105 mmol/L (96-108); Creatinine Clr Calc Pharmacy 22.9; Estimated Glomerular Filt Rate 29; Glucose Random 117 mg/dL (60-115); Lipase 46 U/L (8-78); Magnesium 1.8 mg/dL (1.6-2.6); Potassium 4.2 mmol/L (3.3-5.1); Sodium 138 mmol/L (135-145); Total Protein 6.3 g/dL (6.5-8.0)
[2023-07-27 15:03] LABS: Troponin-I High Sensitivity 12.7 ng/L (<3.5-35.0)
--- NOTE | 2023-07-27 16:30 | PC.NURSE ---
pt resting comfortably in no signs of apparent distress. vss and up to date. nsr on the court monitor. pt's family bedside call lundberg placed within reach.
[2023-07-27 17:19] LABS: Troponin-I High Sensitivity 11.5 ng/L (<3.5-35.0)
--- NOTE | 2023-07-27 18:31 | PC.NURSE ---
pt's son called for status update on father - states that he will be arriving to the ED shortly to visit. will notify pt.
[2023-07-27 18:39] LABS: Appearance Urine Clear; Color Urine Yellow; Glucose Urine UA Negative (Negative); Leukocyte Esterase Urine Negative (Negative); Nitrite Urine Negative (Negative); PH 5.5 (5.0-9.0); Specific Gravity - Urine >= 1.030 (1.005-1.025); Urine Blood Negative (Negative); Urine Ketones Negative (Negative); Urine Protein Negative (Neg-Trace)
--- NOTE | 2023-07-27 19:04 | PC.NURSE ---
pt returned from CT. pt's family bedside for support. 20gIV placed in the right AC w/o complications. labs drawn and sent to lab.
--- NOTE | 2023-07-27 19:06 | PHA.MEDREC ---
Pharmacy Consult ? Medication Reconciliation Pharmacy has completed the medication reconciliation. Patient's family confirmed medications. Reports taking finasteride even though there is no recent fill for it. Tracee Ordoñez, PharmD
--- NOTE | 2023-07-27 19:46 | P.HPHOSP_ITS ---
History of Present Illness Date of Service: 07/27/23 Chief Complaint: syncope 77-year-old male past medical history of moderate dementia, CKD, LBBB, HTN, HLD, BPH, comes into the hospital after a syncopal episode. Patient has dementia, is a poor historian, therefore history is obtained mostly from daughter at bedside. It appears the patient lives at a senior independent living, he was with his friend, when all of a sudden the friend reported that his eyes rolled back, and she helped him get down to the floor. No head injury was reported. Patient himself does not remember the incident he says that he just fell. According to the friend patient was shaking and had seizure-like movement. On arrival to EMS patient was found to have loss of bladder control. Daughter reports the patient has not had any other acute issues, he was doing well, eating and drinking well, has not had any complaints. Patient currently complains of no chest pain, no abdominal pain nausea or vomiting, no diarrhea constipation, no urinary symptoms and no lower extremity edema. Of note patient was seen in the ER on July 18 and diagnosed with influenza at that time. but daughter says that he has been doing well since discharge. On arrival to the ED patient hemodynamically stable no significant abnormal vitals Labs are significant for WBC count of 6.0, hemoglobin of 12.5, creatinine of 2.2 with a baseline of around 1.5-1.8, UA negative for acute infection Chest CT angiogram negative for any PE or abnormal findings. Head CT pending Review of Systems 2 Review of Systems: Yes all other systems are reviewed and are negative [facility] Medical History BPH (benign prostatic hyperplasia) Cholelithiasis CKD (chronic kidney disease) stage 3, GFR 30-59 ml/min Essential hypertension Essential hypertension Gallstone GERD (gastroesophageal reflux disease) LBBB (left bundle branch block) Leg edema Lumbar degenerative disc disease Obesity (BMI 30-39.9) Other and unspecified hyperlipidemia Prostate CA Pure hypercholesterolemia Stroke Umbilical hernia Urinary incontinence Family History Father Medical history unknown Mother Alcoholic cirrhosis CVD (cardiovascular disease) Brother Prostate cancer Maternal Uncle Prostate cancer Brother Muscular dystrophy Sister Asthma CAD (coronary artery disease) Surgical History H/O radical prostatectomy History of colonoscopy History of elbow surgery History of inguinal hernia repair Hx of appendectomy S/P TURP Social History Household Members: None Housing: Apartment Are you a primary ocular care aide to a significant other at home: No Do you presently have visiting nurse 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) Alcohol intake: current Alcohol intake frequency: holidays/special occasions only Alcohol type: beer Patient Tobacco Use Status: Never used Tobacco Smoked in Last 30 Days: No e-Cigarette/Vaping Use: Never Used Second Hand Smoke Exposure: No Use of substances other than those prescribed or required for medical reasons: No Advance Directives: No Advance Directives Information Provided: Yes service: No Current occupational status: disabled Cognitive needs: Yes Hearing needs: No Vision needs: No Meds Allergies Allergy/AdvReac Type Severity Reaction Status Date / Time codeine [CODEINE] Allergy Severe Facial Verified 07/16/23 13:10 Swelling pineapple [PINEAPPLE] Allergy Mild RASH Verified 07/16/23 13:10 Pork/Porcine Containing Allergy Mild ABDOMINAL Verified 07/27/23 13:50 Products PAIN, [PORK/PORCINE CONTAINING VOMITING PRODUCTS] Home Medications Medication Instructions Recorded Confirmed Last Taken Type memantine 5 mg tablet 5 mg PO BID 07/27/23 07/27/23 07/27/23 History Physical Exam Vital Signs and Narrative: Vital Signs: Last Vital Signs Temp 97.8 F 07/27/23 18:00 Pulse 59 07/27/23 18:00 Resp 14 07/27/23 18:00 BP 110/52 L 07/27/23 18:00 Pulse Ox 98 07/27/23 18:00 O2 Del Method Room Air 07/27/23 18:00 Oxygen Flow Rate 4 07/27/23 13:50 BMI result Body Mass Index 18.8 Const: Other: patient awake, alert, oriented to self and place General: cooperative and no acute distress Eyes: General: appearance normal, both eyes and all related structures Resp: Effort & Inspection: normal respiratory effort Auscultation: clear to auscultation bilaterally Cardio: Rate: regular rate Rhythm: regular rhythm GI: Palpation (GI): Soft to palpation Auscultation: normal bowel sounds Skin: General skin exam: no rashes or lesions noted Neuro: Other: no neurological deficits, strength 5/5, cranial nerves 2-12 intact Cognition (Neuro): normal cognition Extrem: General: Yes normal to inspection and Yes no pedal edema Results Labs 07/27/23 14:31 07/27/23 14:31 Labs: Laboratory Results - last 24 hr 07/27/23 07/27/23 07/27/23 14:31 14:31 14:31 MCV 79.4 L MCH 25.0 L MCHC 31.4 RDW 18.6 H Plt Count 198 MPV 11.8 Immature Gran % (Auto) 0.5 H Neut % (Auto) 74.3 H Lymph % (Auto) 15.1 L Heard % (Auto) 8.6 Eos % (Auto) 0.7 Baso % (Auto) 0.8 Lymph # (Auto) 0.9 L Heard # (Auto) 0.5 Eos # (Auto) 0.0 Baso # (Auto) 0.1 Abs Immat Gran (auto) 0.03 Absolute Neuts (auto) 4.5 Absolute Nucleated RBC 0.000 Nucleated RBC % (auto) 0.0 PT 13.8 H INR 1.1 Anion Gap 13 Estim Creat Clear Calc 22.9 Estimated GFR 29 Random Glucose 117 H Calcium 9.2 Magnesium 1.8 Total Bilirubin 1.4 H Direct Bilirubin 0.4 AST 25 ALT 37 Alkaline Phosphatase 89 Total Creatine Kinase Total Protein 6.3 L Albumin 3.7 Lipase 46 Urine Color Urine Appearance Urine pH Ur Specific [place] Urine Protein Urine Glucose (UA) Urine Ketones Urine Blood Urine Nitrite Ur Leukocyte Esterase 07/27/23 07/27/23 14:31 18:17 MCV MCH MCHC RDW Plt Count MPV Immature Gran % (Auto) Neut % (Auto) Lymph % (Auto) Heard % (Auto) Eos % (Auto) Baso % (Auto) Lymph # (Auto) Heard # (Auto) Eos # (Auto) Baso # (Auto) Abs Immat Gran (auto) Absolute Neuts (auto) Absolute Nucleated RBC Nucleated RBC % (auto) PT INR Anion Gap Estim Creat Clear Calc Estimated GFR Random Glucose Calcium Magnesium Total Bilirubin Direct Bilirubin AST ALT Alkaline Phosphatase Total Creatine Kinase 111 Total Protein Albumin Lipase Urine Color Yellow Urine Appearance Clear Urine pH 5.5 Ur Specific [place] >= 1.030 H Urine Protein Negative Urine Glucose (UA) Negative Urine Ketones Negative Urine Blood Negative Urine Nitrite Negative Ur Leukocyte Esterase Negative Imaging Radiologist's Impressions: Impressions Chest CTA 07/27/23 14:22 IMPRESSION: No acute imaging findings within the chest. No evidence of pulmonary embolism. Assessment and Plan (1) Syncope: Qualifiers: Syncope type: unspecified Qualified Code(s): R55 - Syncope and collapse Status: Acute (2) PAXTON (acute kidney injury): Status: Acute Plan this is a 77-year-old male with past medical history of CVA, cognitive dementia, CKD comes into the hospital with syncopal episode # syncope versus seizure - patient has loss of bladder control as well as friend reported noticing jerking movement - daughter reports history of CVA - will obtain head CT, EEG - neurology consulted - admit to telemetry # PAXTON on CKD - likely secondary to dehydration - IVF - follow BMP # HLD - continue statin # BPH - continue tamsulosin # HTN - stable - continue antihypertensives DVT prophylaxis: Heparin subQ given patient's need for further workup of syncope as well as PAXTON requiring IV fluids patient require minimum 2 nights inpatient hospital stay for further management and monitor Time Spent With Patient Time: Total time managing care of this patient today ____ minutes. Quality Stroke Does the patient have a stroke diagnosis?: No VTE Prior VTE?: No VTE Risk Level:: Medical - low VTE Device Contraindication: Treatment Not Indicated VTE Drug Contraindication: N/A - Med Ordered
[2023-07-27] MEDS: Enoxaparin Sodium 30 MG/0.3 ML SYRINGE SUBCUT (22:17)
[2023-07-28] VITALS: BP 142/78; PULSE 58; RESP 20; TEMP 36.8; O2SAT 98
--- NOTE | 2023-07-28 | EEG_ITS ---
This is a 16 channel EEG with an EKG lead. The patient is reported awake and drowsy during the tracing. Background EEG rhythm is mixed theta, beta medium amplitude with no obvious asymmetry or paroxysmal tendency. Photic stimulation does not produce any significant driving. Hyperventilation is not performed. Cardiac lead does not reveal any significant abnormality. No sharp wave spikes or paroxysmal tendency noted. IMPRESSION: Generalized slowing with no evidence of seizure disorder. This type of slowing is usually noted with degenerative dementia. MD CHRISTIN Mendiola/YINKA / [id number]
[2023-07-28 00:05] VITALS: BMI 24.3
[2023-07-28] MEDS: Lactated Ringers 1,000 ML 100 ML IVCONT (00:37)
[2023-07-28] MEDS: 0.9 % Sodium Chloride Flush 3 ML SYRINGE IVFLUSH ×4 (00:37→21:00)
--- NOTE | 2023-07-28 01:48 | PC.NURSE ---
Pt arrived to unit via stretcher from ED. A&Ox person & place, unaware of date. Pleasant and cooperative with care. Scottish speaking but able to make needs known. No c/o pain or discomfort. No s/sx respiratory distress or dyspnea. Denies dizziness/feeling light headed with transfers. Able to stand pivot from stretcher to bed with 1 assist. LR infusing as ordered. STAT Head CT ordered per MD and pt brought down without difficulty. SB with 1st degree HB, BBB, and PACs on k9 handler. Bed in lowest locked position, call lundberg within reach. Bed alarm on for safety.
[2023-07-28 03:04] VITALS: BP 140/72; PULSE 60; RESP 20; TEMP 36.2; O2SAT 99
[2023-07-28 07:12] LABS: MANUAL DIFF FLAG NO
[2023-07-28 07:18] VITALS: BP 140/72; PULSE 55; RESP 18; TEMP 36.7; O2SAT 98
[2023-07-28 07:29] LABS: Alanine Aminotransferase 32 U/L (0-40); Albumin Level 3.5 g/dL (3.5-5.0); Alkaline Phosphatase 80 U/L (39-117); Anion Gap 8 (12-20); Aspartate Amino Transferase 23 U/L (5-37); Bilirubin Total 1.5 mg/dL (0.0-1.0); Blood Urea Nitrogen 18 mg/dL (9-16); Calcium 8.9 mg/dL (8.4-10.2); Carbon Dioxide 24 mmol/L (22-29); Chloride 110 mmol/L (96-108); Creatinine Clr Calc Pharmacy 45.4; Estimated Glomerular Filt Rate 51; Glucose Random 78 mg/dL (60-115); Potassium 3.9 mmol/L (3.3-5.1); Sodium 138 mmol/L (135-145); Total Protein 5.7 g/dL (6.5-8.0)
[2023-07-28 07:45] LABS: Glucose, Whole Blood 124 mg/dL (60-115)
[2023-07-28] MEDS: Tamsulosin HCL 0.4 MG CAPSULE PO (08:24)
[2023-07-28] MEDS: Memantine HCl 5 MG TABLET PO ×2 (08:24→21:00)
[2023-07-28] MEDS: Omeprazole 20 MG CAPSULE.DR PO (08:24)
[2023-07-28] MEDS: lisinopriL 10 MG TABLET 30 MG PO (08:24)
[2023-07-28] MEDS: Cholecalciferol (Vitamin D3) 25 MCG TABLET 50 MCG PO (08:24)
[2023-07-28] MEDS: Atorvastatin Calcium 40 MG TABLET PO (08:24)
[2023-07-28] MEDS: Finasteride 5 MG TABLET PO (08:25)
--- NOTE | 2023-07-28 08:31 | MHC.CM.PN ---
CM met with Patient and Daughter/HCP/Jessica @ bedside and CM addressed SILVA with Jessica (Patient has Vascular Dementia & Cognitive Impairment); original SILVA given to Jessica and a copy has been placed on the chart. 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 Home is the goal and CM has initiated and will follow for dc planning. PCP is Dr. Leighann Morris. Jessica works here at [facility] [place] with Dr. Brewer and can be reached on her cell phone or at Extension [phone].
--- NOTE | 2023-07-28 09:48 | P.CNNE_ITS ---
History of Present Illness Data of Consult Service Date: 07/28/23 Primary Care Provider: Leighann Sellers MD HPI Reason for consult: Seizure 77 years old man with past medical history of vascular dementia who has been investigated for seizure disorder in the past was at home with his when she noted that his right hand started to shake and soon his whole body started to shake, his eyes rolled over neck extended and he became unresponsive. He did not fall down and she had helped him. It lasted for few seconds to a minute or so and he was not aware of what was happening. There was no incontinence. Now he was back to baseline. Review of Systems 2 Review of Systems: No headache or recent trauma PMFSH Past Medical History Medical History BPH (benign prostatic hyperplasia) Cholelithiasis CKD (chronic kidney disease) stage 3, GFR 30-59 ml/min Essential hypertension Essential hypertension Gallstone GERD (gastroesophageal reflux disease) LBBB (left bundle branch block) Leg edema Lumbar degenerative disc disease Obesity (BMI 30-39.9) Other and unspecified hyperlipidemia Prostate CA Pure hypercholesterolemia Stroke Umbilical hernia Urinary incontinence Family History Family History Father Medical history unknown Mother Alcoholic cirrhosis CVD (cardiovascular disease) Brother Prostate cancer Maternal Uncle Prostate cancer Brother Muscular dystrophy Sister Asthma CAD (coronary artery disease) Surgical History Surgical History H/O radical prostatectomy History of colonoscopy History of elbow surgery History of inguinal hernia repair Hx of appendectomy S/P TURP Social History Social History Household Members: None Housing: Apartment Are you a primary personal care worker to a significant other at home: No Do you presently have visiting nurse or 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 home 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) Alcohol intake: current Alcohol intake frequency: holidays/special occasions only Alcohol type: beer Patient Tobacco Use Status: Never used Tobacco e-Cigarette/Vaping Use: Never Used Second Hand Smoke Exposure: No service: No Current occupational status: disabled Cognitive needs: Yes Hearing needs: No Vision needs: No Meds Allergies Allergy/AdvReac Type Severity Reaction Status Date / Time codeine [CODEINE] Allergy Severe Facial Verified 07/16/23 13:10 Swelling pineapple [PINEAPPLE] Allergy Mild RASH Verified 07/16/23 13:10 Pork/Porcine Containing Allergy Mild ABDOMINAL Verified 07/27/23 13:50 Products PAIN, [PORK/PORCINE CONTAINING VOMITING PRODUCTS] Active Medications: Current Medications Acetaminophen (Acetaminophen 325 Mg Tablet) 650 mg PO Q6H PRN PRN Reason: Pain, Mild (Pain Scale 1-3) Atorvastatin Calcium (Atorvastatin Calcium 40 Mg Tablet) 40 mg PO DAILY [facility] Last Admin: 07/28/23 08:24 Dose: 40 mg Docusate Sodium (Docusate Sodium 100 Mg Capsule) 100 mg PO DAILY PRN PRN Reason: Constipation Enoxaparin Sodium (Enoxaparin Sodium 30 Mg/0.3 Ml Syringe) 30 mg SUBCUT Q24H [facility] Last Admin: 07/27/23 22:17 Dose: 30 mg Finasteride (Finasteride 5 Mg Tablet) 5 mg PO DAILY [facility] Last Admin: 07/28/23 08:25 Dose: 5 mg Lactated Ringer's (Lr) 1,000 mls @ 100 mls/hr IVCONT .Q10H [facility] Last Admin: 07/28/23 00:37 Dose: 100 mls/hr Influenza Virus Vaccine (Flu Vacc Di8241-92(6mos Up)/Pf 0.5 Ml Syringe) 0.5 ml IM .ONCE ONE Stop: 07/28/23 10:01 Last Admin: 07/28/23 08:27 Dose: 0.5 ml Lisinopril (Lisinopril 10 Mg Tablet) 30 mg PO DAILY [facility]; Protocol Last Admin: 07/28/23 08:24 Dose: 30 mg Memantine (Memantine Hcl 5 Mg Tablet) 5 mg PO BID [facility] Last Admin: 07/28/23 08:24 Dose: 5 mg Omeprazole (Omeprazole 20 Mg Capsule.Dr) 20 mg PO DAILY [facility] Last Admin: 07/28/23 08:24 Dose: 20 mg Ondansetron HCl (Ondansetron Hcl 4 Mg/2 Ml Vial) 4 mg IVPUSH Q8H PRN PRN Reason: Nausea and Vomiting Sodium Chloride (0.9 % Sodium Chloride Flush 3 Ml Syringe) 3 ml IVFLUSH QSHIFT [facility] Last Admin: 07/28/23 08:24 Dose: 3 ml Tamsulosin HCl (Tamsulosin Hcl 0.4 Mg Capsule) 0.4 mg PO DAILY [facility] Last Admin: 07/28/23 08:24 Dose: 0.4 mg Vitamin D (Cholecalciferol (Vitamin D3) 25 Mcg Tablet) 50 mcg PO DAILY [facility] Last Admin: 07/28/23 08:24 Dose: 50 mcg Home Medications Medication Instructions Recorded Confirmed Last Taken Type memantine 5 mg tablet 5 mg PO BID 07/27/23 07/27/23 07/27/23 History Physical Exam 2 Vital Signs: Vital Signs: Last Vital Signs Temp 98.0 F 07/28/23 07:18 Pulse 55 07/28/23 07:18 Resp 18 07/28/23 07:18 BP 140/72 H 07/28/23 07:18 Pulse Ox 98 07/28/23 07:18 O2 Del Method Room Air 07/28/23 07:18 Oxygen Flow Rate 4 07/27/23 13:50 BMI result Body Mass Index 24.3 Neuro: Other: He is alert and awake with normal spontaneity of speech fluency comprehension and affect. He is pleasantly confused. Deep tendon reflexes are absent with flat plantars. Face is symmetrical. Results Labs 07/27/23 14:31 07/28/23 06:30 Labs: Short CBC 07/27/23 Range/Units 14:31 WBC 6.0 (4.8-10.8) X10*3/uL Hgb 12.5 L (14.0-18.0) g/dl Hct 39.8 L (42.0-52.0) % Plt Count 198 (160-400) X10*3/uL BMP 07/27/23 07/28/23 14:31 06:30 Sodium 138 138 Potassium 4.2 3.9 Chloride 105 110 H Carbon Dioxide 24 24 BUN 21 H 18 H Creatinine 2.20 H 1.36 Calcium 9.2 8.9 Cardiac Enzymes 07/27/23 Range/Units 14:31 Total Creatine Kinase 111 (38-174) U/L Liver Function 07/27/23 07/28/23 Range/Units 14:31 06:30 Total Bilirubin 1.4 H 1.5 H (0.0-1.0) mg/dL Direct Bilirubin 0.4 (0.0-0.5) mg/dL AST 25 23 (5-37) U/L ALT 37 32 (0-40) U/L Alkaline Phosphatase 89 80 (39-117) U/L Albumin 3.7 3.5 (3.5-5.0) g/dL Urine 07/27/23 Range/Units 18:17 Urine Color Yellow Urine Appearance Clear Urine pH 5.5 (5.0-9.0) Ur Specific Cosby >= 1.030 H (1.005-1.025) Urine Protein Negative (Neg-Trace) mg/dL Urine Glucose (UA) Negative (Negative) mg/dL His head CT revealed moderately severe central and cortical atrophy and moderately severe chronic microvascular ischemic changes. Assessment and Plan (1) Seizure disorder: Status: Acute 77 years old man with underlying multifactorial vascular +degenerative dementia who has been investigated for seizure disorder in the past came to hospital with an episode that was suggestive of secondarily generalized seizure. Blood pressure was noted low an of to suggest convulsive syncope. There was no other obvious etiology. My recommendation is to start him on levetiracetam 500 mg twice a day. If feasible an EEG is recommended. Time Spent With Patient Time: Total time managing care of this patient today ____ minutes. Procedures Date of Service Date of Service: 07/28/23
[2023-07-28 10:28] LABS: Basophils Absolute Auto 0.1 X10*3/uL (0.0-0.2); Basophils Percent Auto 1.2 % (0-2); Eosinophils Absolute Auto 0.1 X10*3/uL (0.0-0.4); Eosinophils Percent Auto 2.4 % (0-4); Hematocrit 36.7 % (42.0-52.0); Imm Gran Abs Auto 0.02 X10*3/uL (0.00-0.03); Imm Gran Pct Auto 0.3 % (0.0-0.4); Lymphocytes Absolute Auto 1.4 X10*3/uL (1.2-4.9); Lymphocytes Percent Auto 23.2 % (20-40); Mean Corpuscular HGB Conc 32.7 g/dl (31.0-36.0); Mean Corpuscular Volume 79.4 fL (80.0-98.0); Mean Platelet Volume 12.4 fL (9.4-12.4); Monocytes Absolute Auto 0.6 X10*3/uL (0.1-1.2); Neutrophils Absolute Auto 3.7 x10*3/uL (2.0-8.3); Neutrophils Percent Auto 62.9 % (45-73); Platelet Count 177 X10*3/uL (160-400); Red Blood Count 4.62 X10*6/uL (4.60-5.80); Red Cell Distribution Width 18.6 % (11.0-16.0); White Blood Count 5.9 X10*3/uL (4.8-10.8)
[2023-07-28 12:00] VITALS: BP 145/74; PULSE 57; RESP 20; TEMP 36.9; O2SAT 100
[2023-07-28 15:07] VITALS: BP 145/76; PULSE 58; RESP 20; TEMP 36.7; O2SAT 98
--- NOTE | 2023-07-28 15:09 | P.PNIM_ITS ---
Subjective Subjective Date of Service: 07/28/23 Interval History: History obtained via multiple games dealer patient awake alert offers no acute complaints of lightheadedness, no dizziness, no headache, no chest pain, no palpitation denies nausea vomiting, friend at bedside feels patient is at his baseline level of mentation, no recurrent seizure-like activity since admission. Review of Systems All other system reviewed and negative. Physical Exam 2 Vital Signs: Vital Signs: Last Vital Signs Temp 98.4 F 07/28/23 12:00 Pulse 57 07/28/23 12:00 Resp 20 07/28/23 12:00 BP 145/74 H 07/28/23 12:00 Pulse Ox 100 07/28/23 12:00 O2 Del Method Room Air 07/28/23 12:00 Oxygen Flow Rate 4 07/27/23 13:50 BMI result Body Mass Index 24.3 Const: Other: General awake alert, resting comfortably in no acute distress. Neck supple no JVD. CVS regular rate rhythm, Respiratory lungs clear to auscultation, no respiratory distress, no wheeze, no rhonchi. Gastrointestinal abdomen soft, nontender, bowel sounds audible, no guarding , no rigidity. Extremities no edema. Neuro nonfocal , speech clear. Skin no rash Objective Data Active Medications Acetaminophen (Acetaminophen 325 Mg Tablet) 650 mg PO Q6H PRN PRN Reason: Pain, Mild (Pain Scale 1-3) Atorvastatin Calcium (Atorvastatin Calcium 40 Mg Tablet) 40 mg PO DAILY [facility] Last Admin: 07/28/23 08:24 Dose: 40 mg Documented By: LEONEL Docusate Sodium (Docusate Sodium 100 Mg Capsule) 100 mg PO DAILY PRN PRN Reason: Constipation Enoxaparin Sodium (Enoxaparin Sodium 40 Mg/0.4 Ml Syringe) 40 mg SUBCUT Q24H [facility] Finasteride (Finasteride 5 Mg Tablet) 5 mg PO DAILY [facility] Last Admin: 07/28/23 08:25 Dose: 5 mg Documented By: LEONEL Lactated Ringer's (Lr) 1,000 mls @ 100 mls/hr IVCONT .Q10H [facility] Last Admin: 07/28/23 13:11 Dose: Not Given Documented By: LEONEL Non-Admin Reason: Physician Held Med Lisinopril (Lisinopril 10 Mg Tablet) 30 mg PO DAILY [facility]; Protocol Last Admin: 07/28/23 08:24 Dose: 30 mg Documented By: LEONEL Memantine (Memantine Hcl 5 Mg Tablet) 5 mg PO BID [facility] Last Admin: 07/28/23 08:24 Dose: 5 mg Documented By: LEONEL Omeprazole (Omeprazole 20 Mg Capsule.Dr) 20 mg PO DAILY [facility] Last Admin: 07/28/23 08:24 Dose: 20 mg Documented By: LEONEL Ondansetron HCl (Ondansetron Hcl 4 Mg/2 Ml Vial) 4 mg IVPUSH Q8H PRN PRN Reason: Nausea and Vomiting Sodium Chloride (0.9 % Sodium Chloride Flush 3 Ml Syringe) 3 ml IVFLUSH QSHIFT [facility] Last Admin: 07/28/23 08:24 Dose: 3 ml Documented By: LEONEL Tamsulosin HCl (Tamsulosin Hcl 0.4 Mg Capsule) 0.4 mg PO DAILY [facility] Last Admin: 07/28/23 08:24 Dose: 0.4 mg Documented By: LEONEL Vitamin D (Cholecalciferol (Vitamin D3) 25 Mcg Tablet) 50 mcg PO DAILY [facility] Last Admin: 07/28/23 08:24 Dose: 50 mcg Documented By: LEONEL Labs 07/28/23 06:30 07/28/23 06:30 Labs: Laboratory Results - last 24 hr 07/27/23 07/27/23 07/28/23 13:47 18:17 06:30 MCV 79.4 L MCH 26.0 L MCHC 32.7 RDW 18.6 H Plt Count 177 MPV 12.4 Immature Gran % (Auto) 0.3 Neut % (Auto) 62.9 Lymph % (Auto) 23.2 [place] % (Auto) 10.0 Eos % (Auto) 2.4 Baso % (Auto) 1.2 Lymph # (Auto) 1.4 [place] # (Auto) 0.6 Eos # (Auto) 0.1 Baso # (Auto) 0.1 Abs Immat Gran (auto) 0.02 Absolute Neuts (auto) 3.7 Absolute Nucleated RBC 0.000 Nucleated RBC % (auto) 0.0 Anion Gap 8 L Estim Creat Clear Calc 45.4 Estimated GFR 51 POC Glucose 124 H Random Glucose 78 Calcium 8.9 Total Bilirubin 1.5 H AST 23 ALT 32 Alkaline Phosphatase 80 Total Protein 5.7 L Albumin 3.5 Urine Color Yellow Urine Appearance Clear Urine pH 5.5 Ur Specific Lucas >= 1.030 H Urine Protein Negative Urine Glucose (UA) Negative Urine Ketones Negative Urine Blood Negative Urine Nitrite Negative Ur Leukocyte Esterase Negative Assessment and Plan (1) Seizure disorder: Status: Acute (2) PAXTON (acute kidney injury): Status: Acute Plan 77-year-old male with past medical history of CVA, cognitive dementia, CKD comes into the hospital with syncopal episode # new onset seizure - loss of bladder control as well as jerking movement - daughter reports history of CVA - head CT, showed moderate growth bowel cerebral loss and moderate chronic microangiopathy Obtain EEG - seen by Dr. Bernstein he recommend Keppra 500 mg b.i.d., seizure precautions # PAXTON on CKD stage III - likely secondary to dehydration, renal function normalized DC IV fluids # HLD - continue statin # BPH - continue tamsulosin and Proscar # HTN - stable continue lisinopril # vascular/degenerative dementia continue home medication DVT prophylaxis: Lovenox subQ given patient's need for further workup of seizure patient will need continued inpatient hospitalization Time Spent With Patient Time: Total time managing care of this patient today ____ minutes. Quality Stroke Does the patient have a stroke diagnosis?: No VTE Prior VTE?: No VTE Risk Level:: Medical - low VTE Device Contraindication: Treatment Not Indicated VTE Drug Contraindication: N/A - Med Ordered
[2023-07-28 20:00] VITALS: BP 145/73; PULSE 60; RESP 18; TEMP 37.1; O2SAT 97
[2023-07-28] MEDS: levETIRAcetam 500 MG TABLET PO (21:00)
[2023-07-28] MEDS: Enoxaparin Sodium 40 MG/0.4 ML SYRINGE SUBCUT (21:00)
[2023-07-29] VITALS: BP 136/64; PULSE 56; RESP 18; TEMP 37; O2SAT 99
[2023-07-29 03:52] VITALS: BP 139/63; PULSE 54; RESP 18; TEMP 36.2; O2SAT 97
--- NOTE | 2023-07-29 06:31 | PC.NURSE ---
Pt increasingly agitated, confused thinks he is in his apartment building. Storming out of the room yelling out. Multiple redirection attempts. Pt back in room and punch door on the way in. notified. Pt to have constant berry planter for the next shift.
[2023-07-29 07:59] VITALS: BP 151/83; PULSE 66; RESP 20; TEMP 36.6; O2SAT 100
[2023-07-29] MEDS: Cholecalciferol (Vitamin D3) 25 MCG TABLET 50 MCG PO (08:44)
[2023-07-29] MEDS: Atorvastatin Calcium 40 MG TABLET PO (08:44)
[2023-07-29] MEDS: lisinopriL 10 MG TABLET 30 MG PO (08:44)
[2023-07-29] MEDS: 0.9 % Sodium Chloride Flush 3 ML SYRINGE IVFLUSH (08:44)
[2023-07-29] MEDS: Finasteride 5 MG TABLET PO (08:44)
[2023-07-29] MEDS: Memantine HCl 5 MG TABLET PO (08:44)
[2023-07-29] MEDS: Omeprazole 20 MG CAPSULE.DR PO (08:44)
[2023-07-29] MEDS: Tamsulosin HCL 0.4 MG CAPSULE PO (08:44)
[2023-07-29] MEDS: levETIRAcetam 500 MG TABLET PO (08:44)
[2023-07-29 11:36] VITALS: BP 141/67; PULSE 57; RESP 20; TEMP 37.2; O2SAT 99
--- NOTE | 2023-07-29 12:14 | P.DS_ITS ---
DS: Providers Provider Date of Service: 07/29/23 Date of admission: 07/27/23 19:42 Primary care physician: Leighann Sellers MD Consults: 07/28/23 00:02 Consult to Neurology Routine Consulting Provider: [facility] Reason for consultation: syncope, reported seizure like activity Has provider been notified: No DS: Diagnosis Discharge Diagnosis (1) Seizure disorder: Status: Acute (2) PAXTON (acute kidney injury): Status: Acute DS: Summary Hospital Course Hospital Course: Date of Service: 07/27/23 Chief Complaint: syncope 77-year-old male past medical history of moderate dementia, CKD, LBBB, HTN, HLD, BPH, comes into the hospital after a syncopal episode. Patient has dementia, is a poor historian, therefore history is obtained mostly from daughter at bedside. It appears the patient lives at a senior independent living, he was with his friend, when all of a sudden the friend reported that his eyes rolled back, and she helped him get down to the floor. No head injury was reported. Patient himself does not remember the incident he says that he just fell. According to the friend patient was shaking and had seizure-like m ovement. On arrival to EMS patient was found to have loss of bladder control. Daughter reports the patient has not had any other acute issues, he was doing well, eating and drinking well, has not had any complaints. Patient currently complains of no chest pain, no abdominal pain nausea or vomiting, no diarrhea constipation, no urinary symptoms and no lower extremity edema. Of note patient was seen in the ER on July 18 and diagnosed with influenza at that time. but daughter says that he has been doing well since discharge. On arrival to the ED patient hemodynamically stable no significant abnormal vitals Labs are significant for WBC count of 6.0, hemoglobin of 12.5, creatinine of 2.2 with a baseline of around 1.5-1.8, UA negative for acute infection Chest CT angiogram negative for any PE or abnormal findings. Head CT negative Hospital course: 77-year-old male with past medical history of CVA, cognitive dementia, CKD comes into the hospital with seizure like activity, admitted to medical floor, head CT was unremarkable eeg showed no seizure-like activity patient was seen by Dr. Bernstein he recommended Keppra 500 mg b.i.d. spoke with patient's daughter and recommended outpatient follow-up with Dr. Bernstein patient with underlying history of degenerated dementia continue Namenda. Patient on admission also noted to have PAXTON on CKD stage III, he was treated with IV fluid, Lasix was held renal function normalized will discharge him on low-dose Lasix 20 mg daily in regard to other chronic medical issues including hyperlipidemia, benign prostate hypertrophy and hypertension recommend to resume all home medication as before. Time Spent with Patient Time attestation: Total time managing care of this patient today ____ minutes. Discharge coordination time: Greater than 30 minutes Quality: Safe Use of Opioids Does Pt have an Active Cancer Diagnosis on the Problem List?: No Quality: Stroke Does the patient have a stroke diagnosis?: No Physical Exam Vital Signs: Vital Signs: Last Vital Signs Temp 98.9 F 07/29/23 11:36 Pulse 57 07/29/23 11:36 Resp 20 07/29/23 11:36 BP 141/67 H 07/29/23 11:36 Pulse Ox 99 07/29/23 11:36 O2 Del Method Room Air 07/29/23 11:36 Oxygen Flow Rate 4 07/27/23 13:50 BMI result Body Mass Index 24.3 Const: Other: General awake alert, resting comfortably in no acute distress. Neck supple no JVD. CVS regular rate rhythm, Respiratory lungs clear to auscultation, no respiratory distress, no wheeze, no rhonchi. Gastrointestinal abdomen soft, non tender, bowel sounds audible, no guarding , no rigidity. Extremities no edema. Neuro nonfocal , speech clear. Skin no rash Discharge Plan Discharge Anticipated Discharge Date/Time: 07/29/23 12:06 Patient Disposition: Home, Self-Care Referrals: Leighann Valles MD [Primary Care Provider] - 1 Week Discharge Medications: New acetaminophen 325 mg Tablet 650 mg PO Q6H PRN (Reason: Pain, Mild (Pain Scale 1-3)) Qty: 30 0RF levetiracetam 500 mg Tablet 500 mg PO BID Qty: 60 0RF furosemide [Lasix] 20 mg tablet 20 mg PO QAM Qty: 30 0RF Continued finasteride 5 mg tablet 5 mg PO DAILY Qty: 90 2RF omeprazole 20 mg capsule,delayed release(DR/EC) 20 mg PO DAILY 90 Days Qty: 90 3RF cholecalciferol (vitamin D3) [Vitamin D3] 50 mcg (2,000 unit) capsule 50 mcg PO DAILY 90 Days Qty: 90 1RF lisinopril 30 mg tablet 30 mg PO DAILY Qty: 90 1RF tamsulosin 0.4 mg capsule 0.4 mg PO DAILY 90 Days Qty: 90 1RF atorvastatin 40 mg tablet 40 mg PO DAILY 90 Days Qty: 90 3RF (DME) Shower Chair Misc See Rx Instructions .Route Qty: 1 0RF Rx Instructions: As directed memantine 5 mg tablet 5 mg PO BID Discontinued furosemide 40 mg tablet 40 mg PO DAILY Qty: 90 3RF naproxen [EC-Naproxen] 500 mg Tablet,Delayed Release (Dr/Ec) 500 mg PO Q12H PRN (Reason: Breakthrough Pain, Moderate) Qty: 60 3RF Discharge Orders: Discharge Order (Routine); Ordered 07/29/23 Ordered By: Alex Scott Diet: Advance to usual diet Activity on Discharge: As tolerated Stand Alone Forms: Patient Portal Discharge page Care Plan Goals: EEG showed no seizure like activity No driving, no tub bath, avoid operating machinery Dose of Lasix reduced to 20 mg 1 tablet daily Take Keppra 500 mg 1 tablet twice daily Avoid naproxen for pain since cause renal failure and GI bleed, take Tylenol as needed for pain Continue all other medications Health Concerns: Dementia Plan of Treatment: Outpatient follow-up with neurologist Dr. Bernstein call for appointment Assessment: as above
--- NOTE | 2023-07-29 12:15 | MHC.CM.PN ---
Patient has been medically cleared for dc to home today, self care.
--- NOTE | 2023-07-29 12:31 | MHC.CM.PN ---
Per RN, Patient's Daughter will transport Patient home today after she gets out of work.
== END 2023-07-29 15:33 | disposition home or self-care (01) ==
LOC: HO.ED 16:43 → HO.EDOVER 19:52 → HO.IMC 22:53
PROVIDERS: Emergency Medicine; Admitting Provider Internal Medicine; Emergency Provider Internal Medicine; PCP Internal Medicine; Visit Provider Hospitalist
DX: R55 Syncope and collapse (principal); N17.9 Acute kidney failure, unspecified; G40.909 Epilepsy, unspecified, not intractable, without status epilepticus; I44.7 Left bundle-branch block, unspecified; R41.82 Altered mental status, unspecified; N18.30 Chronic kidney disease, stage 3 unspecified; I12.9 Hypertensive chronic kidney disease with stage 1 through stage 4 chronic kidney disease, or unspecified chronic kidney disease; R07.9 Chest pain, unspecified; E78.5 Hyperlipidemia, unspecified; Z23 Encounter for immunization
CPT/HCPCS: 36415; 70450; 71275; 80048; 80053; 80076; 81003; 82550; 82947; 83690; 83735; 84484; 85025; 85610; 90471; 90686; 93005; 95816; 96360; 96361; 96372; 99222; 99285; J1650; Q9967

== ENCOUNTER → 2023-07-27 19:42 | Outpatient (BNV) | payer MEDICARE, MEDICAID, SELFPAY | PROVIDERS: Admitting Provider Internal Medicine; Emergency Provider Internal Medicine; PCP Internal Medicine; Visit Provider Internal Medicine | DX: G40.909 Epilepsy, unspecified, not intractable, without status epilepticus (principal); N17.9 Acute kidney failure, unspecified | CPT/HCPCS: 99223; 99233; 99239 ==

== ENCOUNTER 2023-08-03 09:25 | Outpatient (AMB) | payer MEDICARE, MEDICAID, SELFPAY ==
--- NOTE | 2023-08-03 09:35 | A.OFFVIS_ITS ---
Intake Intake Visit Reasons: 6m/PSA(set) Intake Note: Patient is present for PSA Urology Med: FINASTERIDE, TAMSULOSIN Antibiotic Allergy: NONE Blood Thinner: None Pharmacy: [facility] Allergies codeine [CODEINE] Allergy (Severe, Verified 08/03/23 09:45) Facial Swelling pineapple [PINEAPPLE] Allergy (Mild, Verified 08/03/23 09:45) RASH Pork/Porcine Containing Products [PORK/PORCINE CONTAINING PRODUCTS] Allergy (Mild, Verified 08/03/23 09:45) ABDOMINAL PAIN, VOMITING Medication List - Last Reconciled 08/03/23 by aJiron Simmons MD acetaminophen 650 mg (2 x 325 mg) PO Q6H PRN atorvastatin 40 mg PO DAILY 90 days cholecalciferol (vitamin D3) (Vitamin D3) 50 mcg PO DAILY 90 days finasteride 5 mg PO DAILY furosemide (Lasix) 20 mg PO QAM levetiracetam 500 mg PO BID lisinopril 30 mg PO DAILY memantine 5 mg PO BID omeprazole 20 mg PO DAILY 90 days Shower Chair As directed tamsulosin 0.4 mg PO DAILY 90 days HPI HPI Comments History of Present Illness Details Christiano MORRELL is a very pleasant Montserratian-speaking male. He is a patient of Dr. Freitas. He is seen in the office today for the following urologic conditions. - prostate cancer - lower urinary tract symptoms Montserratian translation provided by qualified medical staff assistant interprets for him Stable PSA Continue Q 6 month follow-up PSA 01/13 0.9, 06/12 0.5 Progressive vascular dementia Prostate cancer: Grade group 3 2016 External Beam Radiation + GnRH Prostate cancer was diagnosed In [place]. . Diagnosis was reached by pathology at [facility], September 2013, PSA at diagnosis 158. The [place] grade is April 2017 = 4+3 = 7 , biopsy, 04/01 , left base, left mid gland, left apex. TNM Classification of Malignant Tumours (TNM) T2c. The D'Pérez (NCCN) risk category is High Risk (PSA > 20, Gl 8+, T3). Initial therapy included Primary treatment, [facility] - 10/03 - GnRH and Casodex 08/[address] Mei 7900 Gy 44 fractions 08/08 GnRH with oncology - 2 yr hormones. Recent labs included a PSA (prostate-specific antigen) December 2016 1.25 January 2017 1 03/08 0.26, 12/09 PSA 0.15, T 813, 03/09 PSA 0.15, 12/10 0.4, 06/09 PSA .15 T 897, 12/11 0.2, 06/10 0.2, 01/12 0.24, 06/11 0.17 Recent imaging included 10/06 a DEXA scan, showing osteopenia/osteoporosis, 03/07 , a bone scan, with no evidence of metastasis, a CT (computed tomography) scan, with no evidence of metastasis. Therapeutic plan: Continue with surveillance - 6M PFS Medical History BPH (benign prostatic hyperplasia) Cholelithiasis CKD (chronic kidney disease) stage 3, GFR 30-59 ml/min Essential hypertension Essential hypertension Gallstone GERD (gastroesophageal reflux disease) LBBB (left bundle branch block) Leg edema Lumbar degenerative disc disease Obesity (BMI 30-39.9) Other and unspecified hyperlipidemia Prostate CA Pure hypercholesterolemia Stroke Umbilical hernia Urinary incontinence Surgical History H/O radical prostatectomy History of colonoscopy History of elbow surgery History of inguinal hernia repair Hx of appendectomy S/P [facility] Family History Father Medical history unknown Mother Alcoholic cirrhosis CVD (cardiovascular disease) Brother Prostate cancer Maternal Uncle Prostate cancer Brother Muscular dystrophy Sister Asthma CAD (coronary artery disease) Social History Household Members: None Housing: Apartment Are you a primary companion caregiver to a significant other at home: No Do you presently have visiting nurse or other home services: Yes (a operator) Alcohol intake: current Alcohol intake frequency: holidays/special occasions only Alcohol type: beer Patient Tobacco Use Status: Never used Tobacco e-Cigarette/Vaping Use: Never Used Second Hand Smoke Exposure: No service: No Current occupational status: disabled Cognitive needs: Yes Hearing needs: No Vision needs: No Review of Systems Const Denies chills and Denies fever(s) Card Reports no additional complaints and Denies syncope Resp Denies cough GI Denies abdominal pain and Denies heartburn Reports as per HPI and Denies change in libido Neuro Denies syncope Psych Denies change in libido Endo Denies change in libido Physical Exam Const General: cooperative, healthy appearing, comfortable and no acute distress Orientation/consciousness: patient oriented x3 HEENT Face and sinus: Yes normal facial exam Mouth: moist mucous membranes Neck Neck: Yes normal visual inspection, Yes full ROM and Yes trachea midline Chest Chest palpation & inspection: normal inspection of the chest Resp Effort & Inspection: normal respiratory effort, able to speak in complete sentences and no respiratory distress GI Inspection: Yes normal to inspection Back/Spine/Pelvis Cervical Spine: normal cervical lordosis Thoracic/Lumbar Spine: thoracic and lumbar spine normal to inspection Skin General skin exam: no rashes or lesions noted Neuro General: patient oriented x3, gait normal, tone normal and moves all extremities Extrem General: Yes normal to inspection and Yes capillary refill normal Assessment & Plan Assessment & Plan (1) Prostate cancer: Comment: 04/06 - Grade group 3 EXBRT and GnRH Code(s): C61 - Malignant neoplasm of prostate Plan Six month follow-up PSA Orders: Orders Prostate Specific Antigen 6 Months C61 - Malignant neoplasm of prostate Patient Instructions: Imaging studies, laboratory and physical exam results were discussed and reviewed in detail. No major barriers to patient understanding were identified. An opportunity to ask questions regarding the treatment plan was provided. All questions were answered. The patient expressed understanding and agreement with the above treatment plan. The patient is aware they should contact our office by phone for worsening of their current condition or the appearance of new urologic symptoms. Compliance is encouraged with any medications and followup testing that is ordered. It is a privilege to participate in the urologic care of your patient. If you have any questions or concerns regarding treatment for the above conditions, or other urologic issues, please do not hesitate to contact me. The office telephone contact is [phone]. This note is constructed using voice recognition software. While every effort has been made to ensure accuracy supervisor anodizing errors may have been included. Yours sincerely, Dr Jairon Simmons MD, [facility] - Urology Providers of Expert, Compassionate Care for the Genitourinary System Coding Level of Care Code Est Pt Level 3 (02368) Diagnoses Prostate cancer C61
== END 2023-08-03 09:54 | disposition home or self-care (01) ==
PROVIDERS: PCP Internal Medicine; Visit Provider Urology
DX: C61 Malignant neoplasm of prostate (principal)
CPT/HCPCS: 99213

== ENCOUNTER → 2023-08-03 09:25 | Outpatient (BNVA) | payer MEDICARE, MEDICAID, SELFPAY | PROVIDERS: Visit Provider Urology | DX: C61 Malignant neoplasm of prostate (principal); N40.1 Benign prostatic hyperplasia with lower urinary tract symptoms; N13.8 Other obstructive and reflux uropathy; F01.C0 Vascular dementia, severe, without behavioral disturbance, psychotic disturbance, mood disturbance, and anxiety; I12.9 Hypertensive chronic kidney disease with stage 1 through stage 4 chronic kidney disease, or unspecified chronic kidney disease; N18.30 Chronic kidney disease, stage 3 unspecified | CPT/HCPCS: 99212 ==

== ENCOUNTER 2023-08-11 08:53 | Outpatient (AMB) | payer MEDICARE, MEDICAID, SELFPAY ==
[2023-08-11 09:13] VITALS: BP 90/56; PULSE 53; BMI 24.7
--- NOTE | 2023-08-11 09:13 | A.OFFVIS_ITS ---
Intake Vital Signs 08/11/23 09:13 Height 5 ft 9 in Weight 167 lb 8.821 oz BMI 24.7 BP 90/56 L Blood Pressure Location Rt brachial Position Sitting Pulse 53 Intake Visit Reasons: 1 year follow up, after echo Intake Note: 1 year follow up Bung Remover Required: No Accompanied by: Daughter Allergies codeine [CODEINE] Allergy (Severe, Verified 08/11/23 09:17) Facial Swelling pineapple [PINEAPPLE] Allergy (Mild, Verified 08/11/23 09:17) RASH Pork/Porcine Containing Products [PORK/PORCINE CONTAINING PRODUCTS] Allergy (Mild, Verified 08/11/23 09:17) ABDOMINAL PAIN, VOMITING Medication List - Last Reconciled 08/11/23 by Sg Horton MD acetaminophen 650 mg (2 x 325 mg) PO Q6H PRN atorvastatin 40 mg PO DAILY 90 days cholecalciferol (vitamin D3) (Vitamin D3) 50 mcg PO DAILY 90 days finasteride 5 mg PO DAILY furosemide (Lasix) 40 mg PO QDAY levetiracetam 500 mg PO BID lisinopril 30 mg PO DAILY memantine 5 mg PO BID omeprazole 20 mg PO DAILY 90 days Shower Chair As directed tamsulosin 0.4 mg PO DAILY 90 days HPI HPI Comments History of Present Illness Details Christiano returns for follow-up. He has congestive heart failure with mid range LVEF. He also has chronic left bundle-branch block. Has obstructive sleep apnea but does not use CPAP mask. Per family, also ongoing dementia issues and memory problems. Overall, no new symptoms from cardiac. He seems to be doing okay. Has not had anything like chest pain or shortness of breath or anything cardiac sounding. [facility] Medical History BPH (benign prostatic hyperplasia) Cholelithiasis CKD (chronic kidney disease) stage 3, GFR 30-59 ml/min Essential hypertension Essential hypertension Gallstone GERD (gastroesophageal reflux disease) LBBB (left bundle branch block) Leg edema Lumbar degenerative disc disease Obesity (BMI 30-39.9) Other and unspecified hyperlipidemia Prostate CA Pure hypercholesterolemia Stroke Umbilical hernia Urinary incontinence Surgical History H/O radical prostatectomy Hx of appendectomy S/P [facility] History of inguinal hernia repair History of colonoscopy History of elbow surgery Family History Father Medical history unknown Mother Alcoholic cirrhosis CVD (cardiovascular disease) Brother Prostate cancer Maternal Uncle Prostate cancer Brother Muscular dystrophy Sister Asthma CAD (coronary artery disease) Social History Household Members: None Housing: Apartment Are you a primary day care center director to a significant other at home: No Do you presently have visiting nurse or 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 home 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) Alcohol intake: current Alcohol intake frequency: holidays/special occasions only Alcohol type: beer Patient Tobacco Use Status: Never used Tobacco e-Cigarette/Vaping Use: Never Used Second Hand Smoke Exposure: No service: No Current occupational status: disabled Cognitive needs: Yes Hearing needs: No Vision needs: No Review of Systems Const Denies weakness ENT Denies dizziness Card Denies chest pain, Denies chest pain with activity, Denies syncope, Denies rapid heart rate, Denies pedal edema, Denies edema, Denies leg edema, Denies lightheadedness, Denies palpitations, Denies dyspnea, Denies dyspnea on exertion and Denies orthopnea Resp Denies cough, Denies dyspnea and Denies dyspnea on exertion GI Denies hematochezia and Denies change in stool character Musc Denies abnormal gait, Denies muscle cramps, Denies muscle weakness, Denies numbness, Denies radiating pain into limb and Denies tingling Neuro Denies abnormal gait, Denies dizziness, Denies syncope, Denies numbness, Denies tingling and Denies weakness Endo Denies palpitations Physical Exam Vital Signs: Last Vital Signs Pulse 53 08/11/23 09:13 BP 90/56 L 08/11/23 09:13 BMI result Body Mass Index 24.7 Const General: comfortable and no acute distress Orientation/consciousness: patient oriented x3 HEENT Other: Unremarkable Head: Yes normal to inspection Neck Neck: Yes normal visual inspection Chest Chest palpation & inspection: normal inspection of the chest Resp Auscultation: clear to auscultation bilaterally Cardio Palpation: normal PMI Heart sounds: S1 normal heart sound present, S2 normal heart sound present, no gallops, no murmurs and no rubs GI Palpation (GI): Soft to palpation Back/Spine/Pelvis Other: unremarkable Skin General skin exam: no rashes or lesions noted Neuro General: patient oriented x3 Extrem General: Yes normal to inspection Psych Mental Status: mental status grossly abnormal Assessment & Plan Assessment & Plan (1) Chronic heart failure with preserved ejection fraction (HFpEF): Code(s): I50.32 - Chronic diastolic (congestive) heart failure Plan: Most recent echocardiogram from June with LVEF of 45-50%. Myocardial perfusion imaging study from 2019 with no evidence of ischemia. Small fixed apical defect, thought to be artifactual versus old nontransmural infarct. Overall, stable. Continue low-dose diuretics. (2) LBBB (left bundle branch block): Code(s): I44.7 - Left bundle-branch block, unspecified Plan: Chronic finding. (3) Essential hypertension: Code(s): I10 - Essential (primary) hypertension Plan: Stable on lisinopril. (4) Other and unspecified hyperlipidemia: Code(s): E78.5 - Hyperlipidemia, unspecified Plan: On statins. Last LDL 75 mg/dL. (5) TARA (obstructive sleep apnea): Code(s): G47.33 - Obstructive sleep apnea (adult) (pediatric) Plan: Does not want to use CPAP mask. (6) Cognitive impairment: Code(s): R41.89 - Other symptoms and signs involving cognitive functions and awareness Plan: Due to dementia and cognitive issues, conservative care only. Discussed with family about this. Coding Level of Care Code Est Pt Level 4 (12190) Diagnoses Chronic heart failure with preserved ejection fraction (HFpEF) I50.32 LBBB (left bundle branch block) I44.7 Essential hypertension I10 Other and unspecified hyperlipidemia E78.5 TARA (obstructive sleep apnea) G47.33 Cognitive impairment R41.89
== END 2023-08-11 09:52 | disposition home or self-care (01) ==
PROVIDERS: PCP Internal Medicine; Visit Provider Internal Medicine
DX: I50.32 Chronic diastolic (congestive) heart failure (principal); I44.7 Left bundle-branch block, unspecified; I10 Essential (primary) hypertension; E78.5 Hyperlipidemia, unspecified; G47.33 Obstructive sleep apnea (adult) (pediatric); R41.89 Other symptoms and signs involving cognitive functions and awareness
CPT/HCPCS: 99214

== ENCOUNTER → 2023-08-11 08:53 | Outpatient (BNVA) | payer MEDICARE, MEDICAID, SELFPAY | PROVIDERS: PCP Internal Medicine; Visit Provider Internal Medicine | DX: I13.0 Hypertensive heart and chronic kidney disease with heart failure and stage 1 through stage 4 chronic kidney disease, or unspecified chronic kidney disease (principal); I50.32 Chronic diastolic (congestive) heart failure; I44.7 Left bundle-branch block, unspecified; N18.30 Chronic kidney disease, stage 3 unspecified; E78.5 Hyperlipidemia, unspecified; G47.33 Obstructive sleep apnea (adult) (pediatric); R41.89 Other symptoms and signs involving cognitive functions and awareness | CPT/HCPCS: 99212 ==

== ENCOUNTER 2023-08-18 09:00 | Outpatient (AMB) | payer MEDICARE, MEDICAID, SELFPAY ==
--- NOTE | 2023-08-18 09:11 | MHC.PC.OV ---
Vital Signs 08/18/23 09:13 08/18/23 09:22 08/18/23 09:45 Height 5 ft 9 in Weight 165 lb 6 oz BMI 24.4 BP 80/56 L 82/58 L 90/60 Blood Pressure Location Lt brachial Rt brachial Position Sitting Sitting Respiration 17 Pulse 62 Pulse Source Pulse Oximeter Pulse Oximetry (%) 98 Oxygen Delivery Method Room Air Intake Visit Reasons: TCM follow up Intake Note: Patient is here to follow up from [facility] for loss of consciousness. Machine Egg Washer Required: No Accompanied by: Spouse Allergies codeine [CODEINE] Allergy (Severe, Verified 08/18/23 09:31) Facial Swelling pineapple [PINEAPPLE] Allergy (Mild, Verified 08/18/23 09:31) RASH Pork/Porcine Containing Products [PORK/PORCINE CONTAINING PRODUCTS] Allergy (Mild, Verified 08/18/23 09:31) ABDOMINAL PAIN, VOMITING Medication List - Last Reconciled 08/18/23 by Jase Phelan PA-C acetaminophen 650 mg (2 x 325 mg) PO Q6H PRN atorvastatin 40 mg PO DAILY 90 days cholecalciferol (vitamin D3) (Vitamin D3) 50 mcg PO DAILY 90 days finasteride 5 mg PO DAILY furosemide (Lasix) 40 mg PO QDAY levetiracetam 500 mg PO BID lisinopril 30 mg PO DAILY memantine 5 mg PO BID omeprazole 20 mg PO DAILY 90 days Shower Chair with back tamsulosin 0.4 mg PO DAILY 90 days Tobacco use date assessed: 11/25/22 Fall risk assessment: No Falls in past year Last assessed Fall Risk: 08/18/23 Dental Screening Dental Screen Date: 08/18/23 Did you have a dental visit in the last 12 months?: No Did you have a dental problem in the last 6 months where you did not have access to dental care?: No Was dental information given to patient?: Yes HPI TCM follow up HPI Details Patient is a 77-year-old male here today for hospital discharge follow-up visit. Patient presents today with a loved one whom gives the medical history. Patient has a past medical history significant for Congestive heart failure, cognitive impairment, CKD stage 3, sleep apnea, hypertension hyperlipidemia. Was seen at [facility] for presumed seizure-like activity, was admitted to the medical floor, head CT was unremarkable EEG showed no seizure-like activity. Neurology consulted and recommended Keppra 500 b.i.d. No clear etiology to patient's seizure though could have been due to dehydration during that time. Of note today's blood pressure will. Patient denies any dizziness or lethargy at this time. Will advised to reduce his Lasix dose to 20 mg and monitor blood pressure at home TCM TCM Information Date of Discharge 07/29/23 Discharged From [facility] Medical History BPH (benign prostatic hyperplasia) Cholelithiasis CKD (chronic kidney disease) stage 3, GFR 30-59 ml/min Essential hypertension Essential hypertension Gallstone GERD (gastroesophageal reflux disease) LBBB (left bundle branch block) Leg edema Lumbar degenerative disc disease Obesity (BMI 30-39.9) Other and unspecified hyperlipidemia Prostate CA Pure hypercholesterolemia Stroke Umbilical hernia Urinary incontinence Surgical History H/O radical prostatectomy Hx of appendectomy S/P [facility] History of inguinal hernia repair History of colonoscopy History of elbow surgery Family History Father Medical history unknown Mother Alcoholic cirrhosis CVD (cardiovascular disease) Brother Prostate cancer Maternal Uncle Prostate cancer Brother Muscular dystrophy Sister Asthma CAD (coronary artery disease) Social History Household Members: None Housing: Apartment Are you a primary vp care management to a significant other at home: No Do you presently have visiting nurse or 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 Ky Escobar, Aneta Shelton, Vance Mccallum and colleagues, with an educational shelia from [employer]. Review of Systems Const Denies headache(s) Eyes Denies loss of vision ENT Denies vertigo, Denies dizziness, Denies headache(s) and Denies sore throat Card Denies chest pain, Denies leg edema and Denies lightheadedness Resp Denies cough, Denies hemoptysis and Denies wheezing GI Denies abdominal pain, Denies melena, Denies constipation, Denies diarrhea and Denies vomiting Denies dysuria, Denies urinary frequency and Denies urinary urgency Musc Denies arthralgias, Denies joint swelling, Denies numbness and Denies tingling Neuro Denies Abnormal speech present, Denies behavioral changes, Denies vertigo, Denies dizziness, Denies headache(s), Denies loss of vision, Denies memory loss, Denies numbness and Denies tingling Psych Denies anxiety, Denies behavioral changes, Denies depression, Denies memory loss and Denies panic attacks Leo/Lymph Denies easy bleeding and Denies easy bruising Aller/Immun Denies wheezing Physical exam (Primary Care) Vital Signs: Last Vital Signs Pulse 62 08/18/23 09:13 Resp 17 08/18/23 09:13 BP 82/58 L 08/18/23 09:22 Pulse Ox 98 08/18/23 09:13 Oxygen Delivery Method Room Air 08/18/23 09:13 BMI result Body Mass Index 24.4 Tobacco/Smoking Status: Tobacco use Status Tobacco use date assessed 11/25/22 08/18/23 09:18 Patient Tobacco Use Status Never used Tobacco 08/18/23 09:18 e-Cigarette/Vaping Use Never Used 08/18/23 09:18 Thrive Assessment: Date of Thrive Assessment Date Thrive assessed 07/28/23 08/18/23 09:18 Const General: healthy appearing, no acute distress, alert and awake Nutritional Appearance: well nourished Orientation/consciousness: oriented to person, oriented to place and oriented to time HENMT Ears: TM's normal bilaterally General nose exam: Normal nasal mucous membranes and turbinates present Eyes Conjunctivae: conjunctivae normal Sclerae: sclerae normal Pupils: Equal, round and reactive pupils present Neck Neck: Yes no lymphadenopathy and Yes no JVD Thyroid: Thyroid normal Carotids: no bruits Resp Effort & Inspection: normal respiratory effort and not tachypneic Auscultation: no crackles, no rales, no rhonchi and no wheezes Cardio Rate: regular rate Rhythm: regular rhythm Heart sounds: no murmurs and normal S1 and S2 GI Palpation (GI): Soft to palpation, nontender, no hepatomegaly and no splenomegaly Auscultation: normal bowel sounds Skin General skin exam: no rashes or lesions noted and dry skin Neuro General: oriented to person, oriented to place and oriented to time Cranial nerves: Yes Equal, round and reactive pupils present Speech: No Abnormal speech present Gait exam (Neuro): Normal gait present Motor exam (neuro): no tremor noted Extrem Right upper extremity: full ROM Left upper extremity: full ROM Right lower extremity: full ROM; no edema Left lower extremity: full ROM; no edema Psych Mental Status: mental status grossly normal Speech and movement: Normal speech and movement present Affect: normal affect Attitude: cooperative Thought process: Normal thought process present Assessment and Plan Assessment & Plan (1) Hospital discharge follow-up: Code(s): Z09 - Encounter for follow-up examination after completed treatment for conditions other than malignant neoplasm (2) Seizure disorder: Code(s): G40.909 - Epilepsy, unspecified, not intractable, without status epilepticus Plan: Has follow-up with Neurology. Has been placed on Keppra 500 b.i.d.. Has not had any seizure activity since his previous episode. Unclear etiology to patient's seizure though could have been hypotension due to dehydration. (3) Hypotension: Code(s): I95.9 - Hypotension, unspecified Qualifiers: Hypotension type: hypotension due to drug Qualified Code(s): I95.2 - Hypotension due to drugs Plan: Noted low blood pressure today in office. He is asymptomatic though difficult to fire observer as he is fairly demented. Likely due to blood pressure medication vs diuretic. Advised to reduce his Lasix dose to 20 mg and monitor blood pressure at home with goal blood pressure be above 100/60. Given paper script for blood pressure cuff monitor Medications: New miscellaneous medical supply (Blood Pressure Cuff) TEST BLOOD PREESURE ONCE PER DAY 1 ea 0RF I10 - Essential (primary) hypertension Changed From furosemide (Lasix) 40 mg PO QDAY I95.2 - Hypotension due to drugs To furosemide (Lasix) 20 mg PO QDAY I95.2 - Hypotension due to drugs Coding Level of Care Code Est Pt Level 4 (92681) Diagnoses Hospital discharge follow-up Z09 Seizure disorder G40.909 Hypotension due to drugs I95.2 Hypotension type: hypotension due to drug
[2023-08-18 09:13] VITALS: BP 80/56; PULSE 62; RESP 17; O2SAT 98; BMI 24.4
[2023-08-18 09:22] VITALS: BP 82/58
[2023-08-18 09:45] VITALS: BP 90/60
== END 2023-08-18 10:31 | disposition home or self-care (01) ==
PROVIDERS: PCP Internal Medicine; Visit Provider Physician Assistant
DX: Z09 Encounter for follow-up examination after completed treatment for conditions other than malignant neoplasm (principal); G40.909 Epilepsy, unspecified, not intractable, without status epilepticus; I95.2 Hypotension due to drugs
CPT/HCPCS: 99214

== ENCOUNTER 2023-09-29 10:53 | Outpatient (AMB) | payer MEDICARE, MEDICAID, SELFPAY ==
--- NOTE | 2023-09-29 11:32 | HO.NEPHOV ---
HPI HPI Comments History of Present Illness Details 77-year-old man with a history of hypertension and dementia was found to have CKD. In July 2023 he had PAXTON with a creatinine of 2.2. Subsequently cavernous improved to 1.36 mg/dL. He was accompanied by his family was able to translate. Patient has dementia and is a poor historian. All information was obtained from family. [facility] Medical History BPH (benign prostatic hyperplasia) Cholelithiasis CKD (chronic kidney disease) stage 3, GFR 30-59 ml/min Essential hypertension Essential hypertension Gallstone GERD (gastroesophageal reflux disease) LBBB (left bundle branch block) Leg edema Lumbar degenerative disc disease Obesity (BMI 30-39.9) Other and unspecified hyperlipidemia Prostate CA Pure hypercholesterolemia Stroke Umbilical hernia Urinary incontinence Surgical History H/O radical prostatectomy Hx of appendectomy S/P TURP History of inguinal hernia repair History of colonoscopy History of elbow surgery Family History Father Medical history unknown Mother Alcoholic cirrhosis CVD (cardiovascular disease) Brother Prostate cancer Maternal Uncle Prostate cancer Brother Muscular dystrophy Sister Asthma CAD (coronary artery disease) Social History Household Members: None Housing: Apartment Are you a primary career manager to a significant other at home: No Do you presently have visiting nurse or 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) Alcohol intake: current Alcohol intake frequency: holidays/special occasions only Alcohol type: beer Patient Tobacco Use Status: Never used Tobacco e-Cigarette/Vaping Use: Never Used Second Hand Smoke Exposure: No service: No Current occupational status: disabled Cognitive needs: Yes Hearing needs: No Vision needs: No Vital Signs 09/29/23 12:01 Height 5 ft 9 in Weight 170 lb 2 oz BMI 25.1 BP 120/60 Pulse 57 Pulse Oximetry (%) 99 Oxygen Delivery Method Room Air Physical Exam Vital Signs: Last Vital Signs Pulse 57 09/29/23 12:01 BP 120/60 09/29/23 12:01 Pulse Ox 99 09/29/23 12:01 Oxygen Delivery Method Room Air 09/29/23 12:01 BMI result Body Mass Index 25.1 Const General: comfortable Nutritional Appearance: well nourished Orientation/consciousness: patient oriented x3 HEENT Head: No normal to inspection Mouth: moist mucous membranes Neck Neck: Yes supple and Yes no JVD Resp Auscultation: clear to auscultation bilaterally, no rales and rub present Cardio Jugular venous distension: no JVD Palpation: no palpable S3 and no palpable S4 Heart sounds: no rubs GI Palpation (GI): Soft to palpation and nontender Percussion: No Fluid wave present General: Yes no CVA tenderness Back/Spine/Pelvis Back: no CVA tenderness Skin General skin exam: no rashes or lesions noted Neuro General: patient oriented x3 Extrem General: Yes no pedal edema and No clubbing Results Reviewed Results Reviewed: Labs from 07/28/2023 was reviewed Assessment & Plan Assessment & Plan (1) CKD (chronic kidney disease) stage 3, GFR 30-59 ml/min: Code(s): N18.30 - Chronic kidney disease, stage 3 unspecified Plan: CKD in a setting of hypertension and prostate cancer. He probably has hypertensive nephrosclerosis. obstructive uropathy should be considered. No reason to believe that he has active glomerulonephritis or interstitial disease Workup is outlined below including renal ultrasonogram. Continue to avoid nephrotoxic agents. Keep intake more than output. Skip on low-sodium diet. (2) Essential hypertension: Code(s): I10 - Essential (primary) hypertension Plan: At present time blood pressure is well controlled. Continue with current antihypertensive regimen. Low-sodium diet. Maintain blood pressure less than 130/80. (3) Chronic systolic (congestive) heart failure: Code(s): I50.22 - Chronic systolic (congestive) heart failure Plan: Currently appears well compensated. Being followed by Dr. Clifford MAYBERRY in the mid range. continue current dose of Lasix Again discussed the importance of low-salt diet Orders: Orders Blood Urea Nitrogen 09/29/23 N18.30 - Chronic kidney disease, stage 3 unspecified Creatinine 09/29/23 N18.30 - Chronic kidney disease, stage 3 unspecified Calcium 09/29/23 N18.30 - Chronic kidney disease, stage 3 unspecified UA and rflx microscopic 09/29/23 N18.30 - Chronic kidney disease, stage 3 unspecified Creatinine Urine 09/29/23 N18.30 - Chronic kidney disease, stage 3 unspecified Total Protein Urine Random 09/29/23 N18.30 - Chronic kidney disease, stage 3 unspecified US renal BI 09/30/23 N18.30 - Chronic kidney disease, stage 3 unspecified Electrolytes 09/29/23 N18.30 - Chronic kidney disease, stage 3 unspecified Complete Blood Count Auto Diff 09/29/23 N18.30 - Chronic kidney disease, stage 3 unspecified US renal BI 09/29/23 N18.30 - Chronic kidney disease, stage 3 unspecified Coding Level of Care Code New Pt Level 5 (52281) Diagnoses CKD (chronic kidney disease) stage 3, GFR 30-59 ml/min N18.30 Essential hypertension I10 Chronic systolic (congestive) heart failure I50.22
[2023-09-29 12:01] VITALS: BP 120/60; PULSE 57; O2SAT 99; BMI 25.1
== END 2023-09-29 11:39 | disposition home or self-care (01) ==
PROVIDERS: PCP Internal Medicine; Visit Provider Internal Medicine Hypertension Specialist
DX: I50.22 Chronic systolic (congestive) heart failure (principal); I13.0 Hypertensive heart and chronic kidney disease with heart failure and stage 1 through stage 4 chronic kidney disease, or unspecified chronic kidney disease; N18.30 Chronic kidney disease, stage 3 unspecified; C61 Malignant neoplasm of prostate
CPT/HCPCS: 99204

== ENCOUNTER 2023-09-29 10:53 | Outpatient (REF) | payer MEDICARE, MEDICAID, SELFPAY ==
[2023-09-29 12:20] LABS: MANUAL DIFF FLAG NO
[2023-09-29 13:30] LABS: Basophils Absolute Auto 0.1 X10*3/uL (0.0-0.2); Basophils Percent Auto 1.3 % (0-2); Eosinophils Absolute Auto 0.3 X10*3/uL (0.0-0.4); Eosinophils Percent Auto 5.2 % (0-4); Hematocrit 42.6 % (42.0-52.0); Hemoglobin 13.4 g/dl (14.0-18.0); Imm Gran Abs Auto 0.02 X10*3/uL (0.00-0.03); Imm Gran Pct Auto 0.4 % (0.0-0.4); Lymphocytes Absolute Auto 1.5 X10*3/uL (1.2-4.9); Lymphocytes Percent Auto 28.3 % (20-40); Mean Corpuscular HGB Conc 31.5 g/dl (31.0-36.0); Mean Corpuscular Hemoglobin 25.8 pg (27.0-33.0); Mean Corpuscular Volume 81.9 fL (80.0-98.0); Mean Platelet Volume 11.4 fL (9.4-12.4); Monocytes Absolute Auto 0.6 X10*3/uL (0.1-1.2); Monocytes Percent Auto 10.9 % (2-11); Neutrophils Absolute Auto 2.9 x10*3/uL (2.0-8.3); Neutrophils Percent Auto 53.9 % (45-73); Platelet Count 207 X10*3/uL (160-400); Red Cell Distribution Width 15.9 % (11.0-16.0); White Blood Count 5.4 X10*3/uL (4.8-10.8)
[2023-09-29 14:04] LABS: Anion Gap 11 (12-20); Blood Urea Nitrogen 13 mg/dL (9-16); Carbon Dioxide 31 mmol/L (22-29); Chloride 104 mmol/L (96-108); Estimated Glomerular Filt Rate 53; Potassium 4.1 mmol/L (3.3-5.1); Sodium 142 mmol/L (135-145)
[2023-09-29 14:18] LABS: Appearance Urine Clear; Color Urine Yellow; Glucose Urine UA Negative (Negative); Leukocyte Esterase Urine Negative (Negative); Nitrite Urine Negative (Negative); PH 5.5 (5.0-9.0); Specific Gravity - Urine 1.015 (1.005-1.025); Urine Blood Negative (Negative); Urine Ketones Negative (Negative); Urine Protein Negative (Neg-Trace)
[2023-09-29 15:06] LABS: Total Protein Urine Random 13 mg/dL (<12)
== END 2023-09-29 10:54 | disposition home or self-care (01) ==
LOC: HO.LAB 10:53
PROVIDERS: PCP Internal Medicine; Visit Provider Internal Medicine Hypertension Specialist
DX: I13.0 Hypertensive heart and chronic kidney disease with heart failure and stage 1 through stage 4 chronic kidney disease, or unspecified chronic kidney disease (principal); N18.30 Chronic kidney disease, stage 3 unspecified; I50.22 Chronic systolic (congestive) heart failure; F03.90 Unspecified dementia, unspecified severity, without behavioral disturbance, psychotic disturbance, mood disturbance, and anxiety
CPT/HCPCS: 36415; 80051; 81003; 82310; 82565; 82570; 84156; 84520; 85025; 99202

== ENCOUNTER 2023-10-07 10:08 | Outpatient (REF) | payer MEDICARE, MEDICAID, SELFPAY ==
--- NOTE | ~2023-10-07 | US_ITS ---
EXAMINATION: US RETROPERITONEAL LIMITED (RENAL ONLY) CLINICAL INFORMATION: Chronic kidney disease, stage III. COMPARISON: Abdomen CT from 07/16/2023 TECHNIQUE: Sonographic imaging of the kidneys is performed. FINDINGS: RIGHT KIDNEY: 9 x 5 x 5.5 cm (SAG x AP x TRV). The kidney is normal in size, contour, and echogenicity. Renal cortical thickness is normal. No calculi or focal parenchymal lesions. No hydronephrosis. LEFT KIDNEY: 9.5 x 4.2 x 5.3 cm (SAG x AP x TRV). The kidney is normal in size, contour, and echogenicity. Renal cortical thickness is normal. No focal parenchymal lesions. On color Doppler images, there appears to be a small comet tail artifact in the interpolar area, but there is no visible renal stone. No hydronephrosis. US/US renal BI IMPRESSION: * The kidneys have well preserved cortical thickness and cortical echotexture. * There are no convincing renal stones. No hydronephrosis or other acute abnormality.
== END 2023-10-07 10:09 | disposition home or self-care (01) ==
LOC: HO.HMGCX 10:08
PROVIDERS: PCP Internal Medicine; Visit Provider Internal Medicine Hypertension Specialist
DX: N18.30 Chronic kidney disease, stage 3 unspecified (principal)
CPT/HCPCS: 76775

== ENCOUNTER 2023-10-11 10:37 | Outpatient (AMB) | payer MEDICARE, MEDICAID, SELFPAY ==
--- NOTE | 2023-10-11 10:42 | MHC.PC.OV ---
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: No Accompanied by: Daughter Allergies codeine [CODEINE] Allergy (Severe, Verified 10/11/23 11:00) Facial Swelling pineapple [PINEAPPLE] Allergy (Mild, Verified 10/11/23 11:00) RASH Pork/Porcine Containing Products [PORK/PORCINE CONTAINING PRODUCTS] Allergy (Mild, Verified 10/11/23 11:00) ABDOMINAL PAIN, VOMITING Medication List - Last Reconciled 10/11/23 by Leighann Sellers MD acetaminophen 650 mg (2 x 325 mg) PO Q6H PRN atorvastatin 40 mg PO DAILY 90 days cholecalciferol (vitamin D3) (Vitamin D3) 50 mcg PO DAILY 90 days finasteride 5 mg PO DAILY furosemide 20 mg PO DAILY levetiracetam 500 mg PO BID lisinopril 30 mg PO DAILY memantine 5 mg PO BID miscellaneous medical supply (Blood Pressure Cuff) TEST BLOOD PREESURE ONCE PER DAY omeprazole 20 mg PO DAILY 90 days Shower Chair with back tamsulosin 0.4 mg PO DAILY 90 days Tobacco use date assessed: 11/25/22 Fall risk assessment: No Falls in past year Last assessed Fall Risk: 10/11/23 Dental Screening Dental Screen Date: 10/11/23 Did you have a dental visit in the last 12 months?: No Did you have a dental problem in the last 6 months where you did not have access to dental care?: No Was dental information given to patient?: Patient has dentist HPI HPI Comments History of Present Illness Details This is a 77-year-old male with hypertension, chronic kidney disease stage 3, congestive heart failure, vascular dementia and seizure disorder that comes accompanied by daughter today for follow-up on his conditions. Blood pressure stable. Chronic kidney disease has not significantly changed and this is follow by Nephrology. Had a recent ultrasound of the kidneys showing cortical thickening but no hydronephrosis. Denies gaining 5 lb in a week. For his congestive heart failure last echocardiogram in June 2023 showing ejection fraction of 45-50%. No chest pain or shortness of breath. Has vascular dementia and is oriented to person and place but not to time. On memantine for dementia. Follows up with Neurology for his dementia and seizures. On Keppra for seizures and last seizure was July 2023. [facility] Medical History CKD (chronic kidney disease) stage 3, GFR 30-59 ml/min Obesity (BMI 30-39.9) Other and unspecified hyperlipidemia Essential hypertension LBBB (left bundle branch block) Umbilical hernia Gallstone Cholelithiasis GERD (gastroesophageal reflux disease) Urinary incontinence Lumbar degenerative disc disease Leg edema BPH (benign prostatic hyperplasia) Pure hypercholesterolemia Essential hypertension Prostate CA Stroke Surgical History H/O radical prostatectomy Hx of appendectomy S/P TURP History of inguinal hernia repair History of colonoscopy History of elbow surgery Family History Father Medical history unknown Mother Alcoholic cirrhosis CVD (cardiovascular disease) Brother Prostate cancer Maternal Uncle Prostate cancer Brother Muscular dystrophy Sister Asthma CAD (coronary artery disease) Household Members: None Housing: Apartment Are you a primary career services coordinator to a significant other at home: No Do you presently have visiting nurse or 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 Ky Escobar, Aneta Shelton, Vance Mccallum and colleagues, with an educational shelia from [email or web address]. Review of Systems Const All systems reviewed & are unremarkable except as noted in HPI and below Eyes Reports no additional complaints, Denies change in vision and Denies other visual disturbances Card Denies chest pain at rest, Denies chest pain with activity, Denies edema, Denies irregular heart rhythm, Denies claudication, Denies dyspnea, Denies dyspnea on exertion, Denies orthopnea, Denies paroxysmal nocturnal dyspnea and Denies slow heart rate Resp Denies cough, Denies dyspnea and Denies dyspnea on exertion GI Denies abdominal pain, Denies change in bowel habits, Denies excessive flatus, Denies nausea and Denies vomiting Denies urinary hesitancy, Denies urinary incontinence and Denies urinary urgency Musc Denies abnormal gait, Denies atrophy, Denies deformity and Denies limited range of motion Skin/Breast Denies bleeding lesions, Denies changing lesions and Denies rash Neuro Denies abnormal gait and Denies lack of coordination Physical exam (Primary Care) Vital Signs: Last Vital Signs Pulse 59 10/11/23 10:43 BP 110/58 L 10/11/23 10:43 Pulse Ox 96 10/11/23 10:43 Oxygen Delivery Method Room Air 10/11/23 10:43 BMI result Body Mass Index 25.0 Tobacco/Smoking Status: Tobacco use Status Tobacco use date assessed 11/25/22 10/11/23 10:49 Patient Tobacco Use Status Never used Tobacco 10/11/23 10:49 e-Cigarette/Vaping Use Never Used 10/11/23 10:49 Thrive Assessment: Date of Thrive Assessment Date Thrive assessed 07/28/23 10/11/23 10:49 Eyes General: appearance normal, both eyes and all related structures Eyelids: Yes eyelids normal Conjunctivae: conjunctivae normal Neck Neck: Yes normal visual inspection and Yes supple Resp Effort & Inspection: normal respiratory effort Auscultation: clear to auscultation bilaterally Cardio Jugular venous distension: no JVD Rate: regular rate Rhythm: regular rhythm Heart sounds: S1 normal heart sound present and S2 normal heart sound present Extrem General: Yes full ROM Assessment and Plan Assessment & Plan (1) Seizure disorder: Code(s): G40.909 - Epilepsy, unspecified, not intractable, without status epilepticus Plan: Continue Keppra. Follow-up with Neurology. (2) Chronic systolic (congestive) heart failure: Code(s): I50.22 - Chronic systolic (congestive) heart failure Plan: Use diuretics. The goal is to not gain 5 lb in a week. (3) Essential hypertension: Code(s): I10 - Essential (primary) hypertension Plan: Continue lisinopril. Blood pressure goal is equal or less than 130/80. (4) Vascular dementia: Code(s): F01.50 - Vascular dementia, unspecified severity, without behavioral disturbance, psychotic disturbance, mood disturbance, and anxiety Plan: Continue memantine. Follow-up with Neurology. (5) CKD (chronic kidney disease) stage 3, GFR 30-59 ml/min: Code(s): N18.30 - Chronic kidney disease, stage 3 unspecified Plan: Keep blood pressure within goal being less than 130/80. Follow-up with nephrology. Avoid NSAIDs. Coding Level of Care Code Est Pt Level 4 (04414) Diagnoses Seizure disorder G40.909 Chronic systolic (congestive) heart failure I50.22 Essential hypertension I10 Vascular dementia F01.50 CKD (chronic kidney disease) stage 3, GFR 30-59 ml/min N18.30 Time Spent (min) 23
[2023-10-11 10:43] VITALS: BP 110/58; PULSE 59; O2SAT 96; BMI 25.0
== END 2023-10-11 11:08 | disposition home or self-care (01) ==
PROVIDERS: PCP Internal Medicine; Visit Provider Internal Medicine
DX: G40.909 Epilepsy, unspecified, not intractable, without status epilepticus (principal); I50.22 Chronic systolic (congestive) heart failure; F01.50 Vascular dementia, unspecified severity, without behavioral disturbance, psychotic disturbance, mood disturbance, and anxiety; N18.30 Chronic kidney disease, stage 3 unspecified; I12.9 Hypertensive chronic kidney disease with stage 1 through stage 4 chronic kidney disease, or unspecified chronic kidney disease
CPT/HCPCS: 99214

== ENCOUNTER 2023-10-24 10:43 | Outpatient (AMB) | payer MEDICARE, MEDICAID, SELFPAY ==
[2023-10-24 10:47] VITALS: BP 106/74; PULSE 55; O2SAT 98; BMI 25.2
--- NOTE | 2023-10-24 10:47 | HO.NEPHOV_ITS ---
HPI HPI Comments History of Present Illness Details 77-year-old man with a history of hypert ension and dementia was found to have CKD. In July 2023 he had PAXTON with a creatinine of 2.2. Subsequently creatinine improved to 1.36 mg/dL. He was accompanied by his family was able to translate. Patient has dementia and is a poor historian. All information was obtained from family. 10/24/23 : Doing well No complaints PFSH Medical History CKD (chronic kidney disease) stage 3, GFR 30-59 ml/min Obesity (BMI 30-39.9) Other and unspecified hyperlipidemia Essential hypertension LBBB (left bundle branch block) Umbilical hernia Gallstone Cholelithiasis GERD (gastroesophageal reflux disease) Urinary incontinence Lumbar degenerative disc disease Leg edema BPH (benign prostatic hyperplasia) Pure hypercholesterolemia Essential hypertension Prostate CA Stroke Surgical History H/O radical prostatectomy Hx of appendectomy S/P TURP History of inguinal hernia repair History of colonoscopy History of elbow surgery Family History Father Medical history unknown Mother Alcoholic cirrhosis CVD (cardiovascular disease) Brother Prostate cancer Maternal Uncle Prostate cancer Brother Muscular dystrophy Sister Asthma CAD (coronary artery disease) Social History Household Members: None Housing: Apartment Are you a primary resident care spec to a significant other at home: No Do you presently have visiting nurse or 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 home 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) Alcohol intake: current Alcohol intake frequency: holidays/special occasions only Alcohol type: beer Patient Tobacco Use Status: Never used Tobacco e-Cigarette/Vaping Use: Never Used Second Hand Smoke Exposure: No service: No Current occupational status: disabled Cognitive needs: Yes Hearing needs: No Vision needs: No Vital Signs 10/24/23 10:47 Height 5 ft 9 in Weight 171 lb BMI 25.2 BP 106/74 Blood Pressure Location Rt brachial Position Sitting Pulse 55 Pulse Source Pulse Oximeter Pulse Oximetry (%) 98 Oxygen Delivery Method Room Air Physical Exam Vital Signs: Last Vital Signs Pulse 55 10/24/23 10:47 BP 106/74 10/24/23 10:47 Pulse Ox 98 10/24/23 10:47 Oxygen Delivery Method Room Air 10/24/23 10:47 BMI result Body Mass Index 25.2 Const General: comfortable Nutritional Appearance: well nourished Orientation/consciousness: patient oriented x3 HEENT Head: No normal to inspection Mouth: moist mucous membranes Neck Neck: Yes supple and Yes no JVD Resp Auscultation: clear to auscultation bilaterally, no rales and rub present Cardio Jugular venous distension: no JVD Palpation: no palpable S3 and no palpable S4 Heart sounds: no rubs GI Palpation (GI): Soft to palpation and nontender Percussion: No Fluid wave present General: Yes no CVA tenderness Back/Spine/Pelvis Back: no CVA tenderness Skin General skin exam: no rashes or lesions noted Neuro General: patient oriented x3 Extrem General: Yes no pedal edema and No clubbing Assessment & Plan Assessment & Plan (1) CKD (chronic kidney disease) stage 3, GFR 30-59 ml/min: Code(s): N18.30 - Chronic kidney disease, stage 3 unspecified Plan: CKD in a setting of hypertension and prostate cancer. He probably has hypertensive nephrosclerosis. No obstructive uropathy based on sonogram No evidence of active glomerulonephritis or interstitial disease Since BP is low, will DECREASE LISINOPRIL to 20 mg QD From 30 mg Continue to avoid nephrotoxic agents. Keep intake more than output. Skip on low-sodium diet. (2) Essential hypertension: Code(s): I10 - Essential (primary) hypertension Plan: As sbove Continue with current antihypertensive regimen. Low-sodium diet. Maintain blood pressure less than 130/80. (3) Chronic systolic (congestive) heart failure: Code(s): I50.22 - Chronic systolic (congestive) heart failure Plan: Currently appears well compensated. Being followed by Dr. Horton EF in the mid range. continue current dose of Lasix Again discussed the importance of low-salt diet Orders: Orders Electrolytes 4 Months I10 - Essential (primary) hypertension, N18.30 - Chronic kidney disease, stage 3 unspecified Calcium 4 Months I10 - Essential (primary) hypertension, N18.30 - Chronic kidney disease, stage 3 unspecified Blood Urea Nitrogen 4 Months I10 - Essential (primary) hypertension, N18.30 - Chronic kidney disease, stage 3 unspecified Creatinine 4 Months I10 - Essential (primary) hypertension, N18.30 - Chronic kid winifred disease, stage 3 unspecified Medications: New lisinopril 20 mg PO DAILY 30 tabs 3RF Discontinued lisinopril Discontinued Reason: Doctor's Order 30 mg PO DAILY 90 tabs 1RF Coding Level of Care Code Est Pt Level 4 (68884) Diagnoses CKD (chronic kidney disease) stage 3, GFR 30-59 ml/min N18.30 Essential hypertension I10 Chronic systolic (congestive) heart failure I50.22 Results Reviewed Nephrology Results: Hgb 13.4 g/dl (14.0-18.0) L 09/29/23 WBC 5.4 X10*3/uL (4.8-10.8) 09/29/23 Plt Count 207 X10*3/uL (160-400) 09/29/23 Sodium 142 mmol/L (135-145) 09/29/23 Potassium 4.1 mmol/L (3.3-5.1) 09/29/23 Chloride 104 mmol/L (96-108) 09/29/23 Carbon Dioxide 31 mmol/L (22-29) H 09/29/23 BUN 13 mg/dL (9-16) 09/29/23 Creatinine 1.31 mg/dL (0.5-1.4) 09/29/23 Calcium 9.0 mg/dL (8.4-10.2) 09/29/23 Urine Protein Negative mg/dL (Neg-Trace) 09/29/23 Urine Creatinine 166.00 mg/dL 09/29/23 Renal US 10/07/23
== END 2023-10-24 11:10 | disposition home or self-care (01) ==
LOC: HO.HKA 10:44
PROVIDERS: PCP Internal Medicine; Visit Provider Internal Medicine Hypertension Specialist
DX: N18.30 Chronic kidney disease, stage 3 unspecified (principal); I10 Essential (primary) hypertension; I50.22 Chronic systolic (congestive) heart failure
CPT/HCPCS: 99214

== ENCOUNTER → 2023-10-24 10:43 | Outpatient (BNVA) | payer MEDICARE, MEDICAID, SELFPAY | PROVIDERS: PCP Internal Medicine; Visit Provider Internal Medicine Hypertension Specialist | DX: I11.0 Hypertensive heart disease with heart failure (principal); I50.22 Chronic systolic (congestive) heart failure; C61 Malignant neoplasm of prostate; E78.5 Hyperlipidemia, unspecified; E55.9 Vitamin D deficiency, unspecified; N18.30 Chronic kidney disease, stage 3 unspecified | CPT/HCPCS: 99212 ==

== ENCOUNTER 2023-11-18 07:10 | Outpatient (REF) | payer MEDICARE, MEDICAID, SELFPAY ==
[2023-11-18 11:38] LABS: MANUAL DIFF FLAG NO
[2023-11-18 11:40] LABS: Basophils Absolute Auto 0.1 X10*3/uL (0.0-0.2); Basophils Percent Auto 1.3 % (0-2); Eosinophils Absolute Auto 0.2 X10*3/uL (0.0-0.4); Eosinophils Percent Auto 2.3 % (0-4); Hemoglobin 13.5 g/dl (14.0-18.0); Imm Gran Abs Auto 0.02 X10*3/uL (0.00-0.03); Imm Gran Pct Auto 0.3 % (0.0-0.4); Lymphocytes Absolute Auto 1.8 X10*3/uL (1.2-4.9); Lymphocytes Percent Auto 25.9 % (20-40); Mean Corpuscular HGB Conc 31.4 g/dl (31.0-36.0); Mean Corpuscular Hemoglobin 25.3 pg (27.0-33.0); Mean Corpuscular Volume 80.5 fL (80.0-98.0); Mean Platelet Volume 11.7 fL (9.4-12.4); Monocytes Absolute Auto 0.7 X10*3/uL (0.1-1.2); Monocytes Percent Auto 10.4 % (2-11); Neutrophils Absolute Auto 4.2 x10*3/uL (2.0-8.3); Neutrophils Percent Auto 59.8 % (45-73); Platelet Count 234 X10*3/uL (160-400); Red Blood Count 5.34 X10*6/uL (4.60-5.80); Red Cell Distribution Width 14.7 % (11.0-16.0)
[2023-11-18 12:09] LABS: Alanine Aminotransferase 30 U/L (0-40); Albumin Level 3.8 g/dL (3.5-5.0); Alkaline Phosphatase 94 U/L (39-117); Anion Gap 11 (12-20); Aspartate Amino Transferase 22 U/L (5-37); Bilirubin Total 1.3 mg/dL (0.0-1.0); Blood Urea Nitrogen 19 mg/dL (9-16); Calcium 9.1 mg/dL (8.4-10.2); Carbon Dioxide 27 mmol/L (22-29); Chloride 106 mmol/L (96-108); Cholesterol 138 mg/dL (<200); Estimated Glomerular Filt Rate 44; Glucose Fasting 83 mg/dL (60-99); Glucose Random 83 mg/dL (60-115); HDL Cholesterol 50 mg/dL (>40); LDL Cholesterol Calculated 73 mg/dL (<100); Potassium 3.9 mmol/L (3.3-5.1); Sodium 140 mmol/L (135-145); Total Protein 6.6 g/dL (6.5-8.0); Triglycerides 78 mg/dL (<150)
[2023-11-18 12:11] LABS: Vitamin D 25-OH Total 51.7 ng/mL (>30)
[2023-11-18 12:12] LABS: Prostate Specific Antigen Scr 0.41 ng/mL (<0.05-4.0)
[2023-11-22 13:38] LABS: NT-proBNP 50 pg/mL (<450)
== END 2023-11-18 07:11 | disposition home or self-care (01) ==
LOC: HO.HMGCLDS 07:10
PROVIDERS: PCP Internal Medicine; Referring Provider Internal Medicine Medical Oncology; Visit Provider Internal Medicine
DX: C61 Malignant neoplasm of prostate (principal); E55.9 Vitamin D deficiency, unspecified; I50.22 Chronic systolic (congestive) heart failure; E78.5 Hyperlipidemia, unspecified; Z12.5 Encounter for screening for malignant neoplasm of prostate
CPT/HCPCS: 36415; 80053; 80061; 82306; 83880; 84153; 85025

== ENCOUNTER 2024-01-18 10:24 | Outpatient (REF) | payer MEDICARE, MEDICAID, SELFPAY | END 2024-01-18 10:25 | disposition home or self-care (01) | LOC: HO.HMGCLDS 10:24 | PROVIDERS: PCP Internal Medicine; Visit Provider Urology | DX: Z12.5 Encounter for screening for malignant neoplasm of prostate (principal); C61 Malignant neoplasm of prostate | CPT/HCPCS: 36415; 84153 ==

== ENCOUNTER 2024-02-02 09:10 | Outpatient (AMB) | payer MEDICARE, MEDICAID, SELFPAY ==
--- NOTE | 2024-02-02 09:15 | A.OFFVIS_ITS ---
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: No Accompanied by: Daughter Allergies codeine [CODEINE] Allergy (Severe, Verified 02/02/24 09:26) Facial Swelling pineapple [PINEAPPLE] Allergy (Mild, Verified 02/02/24 09:26) RASH Pork/Porcine Containing Products [PORK/PORCINE CONTAINING PRODUCTS] Allergy (Mild, Verified 02/02/24 09:26) ABDOMINAL PAIN, VOMITING Medication List - Last Reconciled 02/02/24 by Jairon Simmons MD acetaminophen 650 mg (2 x 325 mg) PO Q6H PRN atorvastatin 40 mg PO DAILY 90 days cholecalciferol (vitamin D3) (Vitamin D3) 50 mcg PO DAILY 90 days finasteride 5 mg PO DAILY furosemide 20 mg PO DAILY 90 days levetiracetam 500 mg PO BID lisinopril 20 mg PO DAILY memantine 5 mg PO BID miscellaneous medical supply (Blood Pressure Cuff) TEST BLOOD PREESURE ONCE PER DAY omeprazole 20 mg PO DAILY 90 days Shower Chair with back tamsulosin 0.4 mg PO DAILY 90 days HPI HPI Comments History of Present Illness Details Christiano MORRELL is a very pleasant Italian-speaking male. He is a patient of Dr. Freitas. He is seen in the office today for the following urologic conditions. - prostate cancer - lower urinary tract symptoms Italian translation provided by qualified medical records coder interprets for him Stable PSA Continue Q 6 month follow-up PSA 01/13 0.9, 06/12 0.5, 12/14 0.4 Progressive vascular dementia Low PVR Prostate cancer: Grade group 3 2016 External Beam Radiation + GnRH Prostate cancer was diagnosed In [place]. . Diagnosis was reached by pathology at [facility], September 2013, PSA at diagnosis 158. The Jerrod grade is April 2017 = 4+3 = 7 , biopsy, 5/12 , left base, left mid gland, left apex. TNM Classification of Malignant Tumours (TNM) T2c. The D'Pérez (NCCN) risk category is High Risk (PSA > 20, Gl 8+, T3). Initial therapy included Primary treatment, [facility] - 10/03 - GnRH and Casodex 08/[address] Mei 7900 Gy 44 fractions 08/08 GnRH with oncology - 2 yr hormones. Recent labs included a PSA (prostate-specific antigen) December 2016 1.25 January 2017 1 03/08 0.26, 12/09 PSA 0.15, T 813, 03/09 PSA 0.15, 12/10 0.4, 06/09 PSA .15 T 897, 12/11 0.2, 06/10 0.2, 01/12 0.24, 06/11 0.17 Recent imaging included 10/06 a DEXA scan, showing osteopenia/osteoporosis, 03/07 , a bone scan, with no evidence of metastasis, a CT (computed tomography) scan, with no evidence of metastasis. Therapeutic plan: Continue with surveillance - 6M PFSH Medical History CKD (chronic kidney disease) stage 3, GFR 30-59 ml/min Obesity (BMI 30-39.9) Other and unspecified hyperlipidemia Essential hypertension LBBB (left bundle branch block) Umbilical hernia Gallstone Cholelithiasis GERD (gastroesophageal reflux disease) Urinary incontinence Lumbar degenerative disc disease Leg edema BPH (benign prostatic hyperplasia) Pure hypercholesterolemia Essential hypertension Prostate CA Stroke Surgical History H/O radical prostatectomy Hx of appendectomy S/P [facility] History of inguinal hernia repair History of colonoscopy History of elbow surgery Family History Father Medical history unknown Mother Alcoholic cirrhosis CVD (cardiovascular disease) Brother Prostate cancer Maternal Uncle Prostate cancer Brother Muscular dystrophy Sister Asthma CAD (coronary artery disease) Social History Household Members: None Housing: Apartment Are you a primary clinical care manager to a significant other at home: No Do you presently have visiting nurse or other home services: Yes (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) Alcohol intake: current Alcohol intake frequency: holidays/special occasions only Alcohol type: beer Patient Tobacco Use Status: Never used Tobacco e-Cigarette/Vaping Use: Never Used Second Hand Smoke Exposure: No service: No Current occupational status: disabled Cognitive needs: Yes Hearing needs: No Vision needs: No Review of Systems Const Denies chills and Denies fever(s) Card Reports no additional complaints and Denies syncope Resp Denies cough GI Denies abdominal pain and Denies heartburn Reports as per HPI and Denies change in libido Neuro Denies syncope Psych Denies change in libido Endo Denies change in libido Physical Exam Const General: cooperative, healthy appearing, comfortable and no acute distress Orientation/consciousness: patient oriented x3 HEENT Face and sinus: Yes normal facial exam Mouth: moist mucous membranes Neck Neck: Yes normal visual inspection, Yes full ROM and Yes trachea midline Chest Chest palpation & inspection: normal inspection of the chest Resp Effort & Inspection: normal respiratory effort, able to speak in complete sentences and no respiratory distress GI Inspection: Yes normal to inspection Back/Spine/Pelvis Cervical Spine: normal cervical lordosis Thoracic/Lumbar Spine: thoracic and lumbar spine normal to inspection Skin General skin exam: no rashes or lesions noted Neuro General: patient oriented x3, gait normal, tone normal and moves all extremities Extrem General: Yes normal to inspection and Yes capillary refill normal Office Procedures Post Void Residual Post Residual Void Post Void Residual (PVR): 16 54795-Phmy Void Residual by ultrasound Assessment & Plan Assessment & Plan (1) Prostate cancer: Comment: 04/06 - Grade group 3 EXBRT and GnRH Code(s): C61 - Malignant neoplasm of prostate (2) BPH (benign prostatic hyperplasia): Code(s): N40.0 - Benign prostatic hyperplasia without lower urinary tract symptoms Plan Six-month follow-up Orders: Orders AMB Post Void Residual by ultrasound Today R33.9 - Retention of urine, unspecified Testosterone, Total 6 Months C61 - Malignant neoplasm of prostate Prostate Specific Antigen 6 Months C61 - Malignant neoplasm of prostate Patient Instructions: Imaging studies, laboratory and physical exam results were discussed and reviewed in detail. No major barriers to patient understanding were identified. An opportunity to ask questions regarding the treatment plan was provided. All questions were answered. The patient expressed understanding and agreement with the above treatment plan. The patient is aware they should contact our office by phone for worsening of their current condition or the appearance of new urologic symptoms. Compliance is encouraged with any medications and followup testing that is ordered. It is a privilege to participate in the urologic care of your patient. If you have any questions or concerns regarding treatment for the above conditions, or other urologic issues, please do not hesitate to contact me. The office telephone contact is [phone]. This note is constructed using voice recognition software. While every effort has been made to ensure accuracy window framer errors may have been included. Yours sincerely, Dr Jairon Simmons MD, [facility] - Urology Providers of Expert, Compassionate Care for the Genitourinary System Coding Level of Care Code Est Pt Level 3 (02407) Diagnoses Prostate cancer C61 BPH (benign prostatic hyperplasia) N40.0 CPT Codes Post Residual Void - PVR CPT Code: 44097-Sonj Void Residual by ultrasound ([id number])
== END 2024-02-02 10:09 | disposition home or self-care (01) ==
PROVIDERS: PCP Internal Medicine; Visit Provider Urology
DX: C61 Malignant neoplasm of prostate (principal); N40.0 Benign prostatic hyperplasia without lower urinary tract symptoms
CPT/HCPCS: 99213

== ENCOUNTER → 2024-02-02 09:10 | Outpatient (BNVA) | payer MEDICARE, MEDICAID, SELFPAY | PROVIDERS: PCP Internal Medicine; Visit Provider Urology | DX: C61 Malignant neoplasm of prostate (principal); N40.1 Benign prostatic hyperplasia with lower urinary tract symptoms; R33.8 Other retention of urine; Z79.899 Other long term (current) drug therapy | CPT/HCPCS: 51798; 99212 ==

== ENCOUNTER 2024-02-14 07:50 | Outpatient (AMB) | payer MEDICARE, MEDICAID, SELFPAY ==
[2024-02-14 08:16] VITALS: BP 136/80; BMI 28.3
--- NOTE | 2024-02-14 08:16 | MHC.PC.OV ---
Vital Signs 02/14/24 08:16 Height 5 ft 5 in Weight 170 lb BMI 28.3 BP 136/80 Blood Pressure Location Lt brachial Position Sitting Intake Visit Reasons: 4 month f/u Intake Note: Patient here for a 4 month follow up Blood Typer Required: No Accompanied by: Daughter Allergies codeine [CODEINE] Allergy (Severe, Verified 02/14/24 08:37) Facial Swelling pineapple [PINEAPPLE] Allergy (Mild, Verified 02/14/24 08:37) RASH Pork/Porcine Containing Products [PORK/PORCINE CONTAINING PRODUCTS] Allergy (Mild, Verified 02/14/24 08:37) ABDOMINAL PAIN, VOMITING Medication List - Last Reconciled 02/14/24 by Leighann Sellers MD acetaminophen 650 mg (2 x 325 mg) PO Q6H PRN aspirin (Adult Low Dose Aspirin) 81 mg PO DAILY atorvastatin 40 mg PO DAILY 90 days cholecalciferol (vitamin D3) (Vitamin D3) 50 mcg PO DAILY 90 days finasteride 5 mg PO DAILY furosemide 20 mg PO DAILY 90 days levetiracetam 500 mg PO BID lisinopril 20 mg PO DAILY memantine 5 mg PO BID miscellaneous medical supply (Blood Pressure Cuff) TEST BLOOD PREESURE ONCE PER DAY omeprazole 20 mg PO DAILY 90 days Shower Chair with back tamsulosin 0.4 mg PO DAILY 90 days Tobacco use date assessed: 02/14/24 Fall risk assessment: No Falls in past year Last assessed Fall Risk: 02/14/24 Dental Screening Dental Screen Date: 02/14/24 Did you have a dental visit in the last 12 months?: No Did you have a dental problem in the last 6 months where you did not have access to dental care?: No Was dental information given to patient?: Patient has dentist HPI HPI Comments History of Present Illness Details This is a 78-year-old male with hypertension, pure hypercholesterolemia, GERD, vascular dementia, seizures and chronic kidney disease stage 3 that comes today for follow-up on his conditions accompanied by daughter. Blood pressure stable. On statins for his elevated cholesterol which has been working well. GERD stable with PPIs as needed. Has vascular dementia and is awake, alert and oriented to person and place but not to time. Lives alone but daughter does the cooking and laundry. On memantine for his dementia and this is follow by Neurology as well as seizures. Has not had a seizure in over 2 months. Last GFR was 46 which has been stable and renal ultrasound does not show any significant abnormality. Chronic kidney disease is follow by Nephrology. Does not need assistive device to walk. Denies any chest pain or shortness of breath. Compliant with medications. He also has chronic systolic congestive heart failure with last echocardiogram done June 2023 shows ejection fraction of 45-50%. He denies gaining 5 lb in a week and is follow by cardiology. [facility] Medical History CKD (chronic kidney disease) stage 3, GFR 30-59 ml/min Obesity (BMI 30-39.9) Other and unspecified hyperlipidemia Essential hypertension LBBB (left bundle branch block) Umbilical hernia Gallstone Cholelithiasis GERD (gastroesophageal reflux disease) Urinary incontinence Lumbar degenerative disc disease Leg edema BPH (benign prostatic hyperplasia) Pure hypercholesterolemia Essential hypertension Prostate CA Stroke Surgical History H/O radical prostatectomy Hx of appendectomy S/P [facility] History of inguinal hernia repair History of colonoscopy History of elbow surgery Family History Father Medical history unknown Mother Alcoholic cirrhosis CVD (cardiovascular disease) Brother Prostate cancer Maternal Uncle Prostate cancer Brother Muscular dystrophy Sister Asthma CAD (coronary artery disease) Social History Household Members: None Housing: Apartment Are you a primary day care supervisor to a significant other at home: No Do you presently have visiting nurse or 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 1. Little interest or pleasure in doing things: not at all 2. Feeling down, depressed, or hopeless: not at all 3. Trouble falling or staying asleep, or sleeping too much: not at all 4. Feeling tired or having little energy: not at all 5. Poor appetite or overeating: not at all 6. Feeling bad about yourself - or that you are a failure or have let yourself or your family down: not at all 7. Trouble concentrating on things, such as reading the newspaper or watching television: not at all 8. Moving or speaking so slowly that other people could have noticed. Or the opposite - being so fidgety or restless that you have been moving around a lot more than usual: not at all 9. Thoughts that you would be better off or of hurting yourself in some way: not at all Total score: 0 Depression Screening Interpretation: Negative Depression Screening Done: Yes 61358 - PHQ-9 Billing: Yes Source: Developed by Drs. Ky Escobar, Aneta Shelton, Vance Mccallum and colleagues, with an educational shelia from [employer]. Thrive Questionnaire Date Thrive assessed: 02/14/24 I am a: Patient What is your living situation today?: I have a steady place to live Within the past 12 months, did the food you bought not last and you didn't have the money to get more?: Never true Within the past 12 months, did you worry whether your food would run out before you got money to buy more?: Never true Do you have trouble paying for medicines?: No Do you have trouble getting transportation to medical appointments?: No Do you have trouble paying your heating and electricity bill?: No Do you have trouble taking care of your child, family member or friend?: No Do you have trouble with day-to-day activities such as bathing, preparing meals, shopping, managing finances, etc.?: No Are you currently unemployed and looking for a job?: No Are you interested in more education?: No Please select the resources that you would like help with: None Currently or been in a relationship where the following occur: no concerns reported THRIVE Score: 0 AUDIT C Alcohol Use Questionnaire (AUDIT-C) 1. How often do you have a drink containing alcohol?: Monthly or less 2. How many drinks containing alcohol do you have on a typical day when you are drinking?: 1 or 2 3. How often do you have six or more drinks on one occasion?: Never Total Score: 1 VICTOR MANUEL-7 AMB Questionnaire VICTOR MANUEL-7 Date VICTOR MANUEL - 7 assessed: 02/14/24 Feeling nervous, anxious, or on edge: 0 = Not at all Not being able to stop or control worryin = Not at all Worrying too much about different things: 0 = Not at all Trouble relaxin = Not at all Being so restless that it is hard to sit still: 0 = Not at all Becoming easily annoyed or irritable: 0 = Not at all Feeling afraid as if something awful might happen: 0 = Not at all Total VICTOR MANUEL-7 score (0-4 normal; 5-9 mild; 10-14 moderate; 15-21 severe): 0 Source: Developed by Drs. Ky Escobar, Aneta Shelton, Vance Mccallum and colleagues, with an educational shelia from [employer]. VICTOR MANUEL-7 Assessment Billing VICTOR MANUEL-7 Assessment Tool: VICTOR MANUEL-7 Assessment 07193 Review of Systems Const All systems reviewed & are unremarkable except as noted in HPI and below Eyes Reports no additional complaints, Denies change in vision and Denies other visual disturbances Card Denies chest pain at rest, Denies chest pain with activity, Denies edema, Denies irregular heart rhythm, Denies claudication, Denies dyspnea, Denies dyspnea on exertion, Denies orthopnea, Denies paroxysmal nocturnal dyspnea and Denies slow heart rate Resp Denies cough, Denies dyspnea and Denies dyspnea on exertion GI Denies abdominal pain, Denies change in bowel habits, Denies excessive flatus, Denies nausea and Denies vomiting Denies urinary hesitancy, Denies urinary incontinence and Denies urinary urgency Musc Denies abnormal gait, Denies atrophy, Denies deformity and Denies limited range of motion Skin/Breast Denies bleeding lesions, Denies changing lesions and Denies rash Neuro Denies abnormal gait, Denies behavioral changes, Denies lack of coordination and Reports memory loss Psych Denies behavioral changes and Reports memory loss Physical exam (Primary Care) Vital Signs: Last Vital Signs BP 136/80 02/14/24 08:16 BMI result Body Mass Index 28.3 Tobacco/Smoking Status: Tobacco use Status Tobacco use date assessed 02/14/24 02/14/24 08:24 Patient Tobacco Use Status Never used Tobacco 02/14/24 08:24 e-Cigarette/Vaping Use Never Used 02/14/24 08:24 PHQ-9: PHQ-9 Score PHQ-9: Total score 0 02/14/24 08:41 Depression Screening Interpretation: Negative Thrive Assessment: Date of Thrive Assessment Date Thrive assessed 02/14/24 02/14/24 08:24 Currently or been in a relationship where the following occur: no concerns reported Const Orientation/consciousness: oriented to person and oriented to place Resp Effort & Inspection: normal respiratory effort Auscultation: clear to auscultation bilaterally Cardio Jugular venous distension: no JVD Rate: regular rate Rhythm: regular rhythm Heart sounds: S1 normal heart sound present and S2 normal heart sound present Neuro General: oriented to person, oriented to place and gait normal Extrem General: Yes full ROM Assessment and Plan Assessment & Plan (1) Seizure disorder: Code(s): G40.909 - Epilepsy, unspecified, not intractable, without status epilepticus Plan: Continue Keppra. Follow-up with Neurology. (2) Chronic systolic (congestive) heart failure: Code(s): I50.22 - Chronic systolic (congestive) heart failure Plan: Continue furosemide. The goal is to not gain 5 lb in a week. Follow-up with Cardiology. (3) Vascular dementia: Code(s): F01.50 - Vascular dementia, unspecified severity, without behavioral disturbance, psychotic disturbance, mood disturbance, and anxiety Plan: Continue memantine. Follow-up with Neurology. (4) CKD (chronic kidney disease) stage 3, GFR 30-59 ml/min: Code(s): N18.30 - Chronic kidney disease, stage 3 unspecified Plan: Follow-up with nephrology. Avoid NSAIDs. (5) Essential hypertension: Code(s): I10 - Essential (primary) hypertension Plan: Continue lisinopril. Blood pressure goal is equal or less than 130/80. (6) Pure hypercholesterolemia: Code(s): E78.00 - Pure hypercholesterolemia, unspecified Plan: Continue statins. Try to follow a low-cholesterol diet. (7) GERD (gastroesophageal reflux disease): Code(s): K21.9 - Gastro-esophageal reflux disease without esophagitis Plan: Continue PPIs. Orders: Orders Complete Blood Count Auto Diff Today D64.9 - Anemia, unspecified IRON PROFILE Today D64.9 - Anemia, unspecified Vitamin D 25-OH Total Today E55.9 - Vitamin D deficiency, unspecified Lipid Panel Today E78.5 - Hyperlipidemia, unspecified Comprehensive [place]. Panel Fast Today G40.909 - Epilepsy, unspecified, not intractable, without status epilepticus Coding Level of Care Code Est Pt Level 4 (41077) Diagnoses Seizure disorder G40.909 Chronic systolic (congestive) heart failure I50.22 Vascular dementia F01.50 CKD (chronic kidney disease) stage 3, GFR 30-59 ml/min N18.30 Essential hypertension I10 Pure hypercholesterolemia E78.00 GERD (gastroesophageal reflux disease) K21.9 Additional Codes VICTOR MANUEL-7 Assessment Billing - VICTOR MANUEL-7 Assessment Tool: VICTOR MANUEL-7 Assessment 39480 ([id number]) Time Spent (min) 25
== END 2024-02-14 08:47 | disposition home or self-care (01) ==
PROVIDERS: PCP Internal Medicine; Visit Provider Internal Medicine
DX: G40.909 Epilepsy, unspecified, not intractable, without status epilepticus (principal); I50.22 Chronic systolic (congestive) heart failure; F01.50 Vascular dementia, unspecified severity, without behavioral disturbance, psychotic disturbance, mood disturbance, and anxiety; N18.30 Chronic kidney disease, stage 3 unspecified; I10 Essential (primary) hypertension; E78.00 Pure hypercholesterolemia, unspecified; K21.9 Gastro-esophageal reflux disease without esophagitis
CPT/HCPCS: 99214

== ENCOUNTER 2024-03-13 13:55 | Outpatient (REF) | payer MEDICARE, MEDICAID, SELFPAY ==
[2024-03-13 17:25] LABS: Anion Gap 12 (12-20); Blood Urea Nitrogen 16 mg/dL (9-16); Calcium 9.5 mg/dL (8.4-10.2); Carbon Dioxide 27 mmol/L (22-29); Chloride 107 mmol/L (96-108); Estimated Glomerular Filt Rate 42; Sodium 142 mmol/L (135-145)
== END 2024-03-13 13:56 | disposition home or self-care (01) ==
LOC: HO.HMGCLDS 13:55
PROVIDERS: PCP Internal Medicine; Visit Provider Internal Medicine Hypertension Specialist
DX: N18.30 Chronic kidney disease, stage 3 unspecified (principal); I10 Essential (primary) hypertension
CPT/HCPCS: 36415; 80051; 82310; 82565; 84520

== ENCOUNTER 2024-03-19 10:10 | Outpatient (AMB) | payer MEDICARE, MEDICAID, SELFPAY ==
[2024-03-19 10:15] VITALS: BP 82/52; PULSE 70; O2SAT 97; BMI 29.1
--- NOTE | 2024-03-19 10:15 | HO.NEPHOV ---
Vital Signs 03/19/24 10:15 Height 5 ft 5 in Weight 175 lb BMI 29.1 BP 82/52 L Blood Pressure Location Lt brachial Position Sitting Pulse 70 Pulse Source Pulse Oximeter Pulse Oximetry (%) 97 Oxygen Delivery Method Room Air Intake Visit Reasons: 4 mon follow up/ Confirmed Accompanied by: Self / Same As Patient Allergies codeine [CODEINE] Allergy (Severe, Verified 03/19/24 10:19) Facial Swelling pineapple [PINEAPPLE] Allergy (Mild, Verified 03/19/24 10:19) RASH Pork/Porcine Containing Products [PORK/PORCINE CONTAINING PRODUCTS] Allergy (Mild, Verified 03/19/24 10:19) ABDOMINAL PAIN, VOMITING HPI Comments Details: 77-year-old man with a history of hypertension and dementia was found to have CKD. In July 2023 he had PAXTON with a creatinine of 2.2. Subsequently creatinine improved to 1.36 mg/dL. He was accompanied by his family was able to translate. Patient has dementia and is a poor historian. All information was obtained from family. 10/24/23 : Doing well;No complaints [facility] Medical History CKD (chronic kidney disease) stage 3, GFR 30-59 ml/min Obesity (BMI 30-39.9) Other and unspecified hyperlipidemia Essential hypertension LBBB (left bundle branch block) Umbilical hernia Gallstone Cholelithiasis GERD (gastroesophageal reflux disease) Urinary incontinence Lumbar degenerative disc disease Leg edema BPH (benign prostatic hyperplasia) Pure hypercholesterolemia Essential hypertension Prostate CA Stroke Surgical History H/O radical prostatectomy Hx of appendectomy S/P TURP History of inguinal hernia repair History of colonoscopy History of elbow surgery Family History Father Medical history unknown Mother Alcoholic cirrhosis CVD (cardiovascular disease) Brother Prostate cancer Maternal Uncle Prostate cancer Brother Muscular dystrophy Sister Asthma CAD (coronary artery disease) Social History Household Members: None Housing: Apartment Are you a primary primary care pediatrician to a significant other at home: No 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 presently 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) Alcohol intake: current Alcohol intake frequency: holidays/special occasions only Alcohol type: beer Patient Tobacco Use Status: Never used Tobacco e-Cigarette/Vaping Use: Never Used Second Hand Smoke Exposure: No service: No Current occupational status: disabled Cognitive needs: Yes Hearing needs: No Vision needs: No Physical Exam Vital Signs: Last Vital Signs Pulse 70 03/19/24 10:15 BP 82/52 L 03/19/24 10:15 Pulse Ox 97 03/19/24 10:15 Oxygen Delivery Method Room Air 03/19/24 10:15 BMI result Body Mass Index 29.1 Const General: comfortable Nutritional Appearance: well nourished Orientation/consciousness: patient oriented x3 HEENT Head: No normal to inspection Mouth: moist mucous membranes Neck Neck: Yes supple and Yes no JVD Resp Auscultation: clear to auscultation bilaterally, no rales and rub present Cardio Jugular venous distension: no JVD Palpation: no palpable S3 and no palpable S4 Heart sounds: no rubs GI Palpation (GI): Soft to palpation and nontender Percussion: No Fluid wave present General: Yes no CVA tenderness Back/Spine/Pelvis Back: no CVA tenderness Skin General skin exam: no rashes or lesions noted Neuro General: patient oriented x3 Extrem General: Yes no pedal edema and No clubbing Results Reviewed Nephrology Results: Hgb 13.2 g/dl (14.0-18.0) L 12/19/23 WBC 6.5 X10*3/uL (4.8-10.8) 12/19/23 Plt Count 226 X10*3/uL (160-400) 12/19/23 Sodium 142 mmol/L (135-145) 03/13/24 Potassium 4.0 mmol/L (3.3-5.1) 03/13/24 Chloride 107 mmol/L (96-108) 03/13/24 Carbon Dioxide 27 mmol/L (22-29) 03/13/24 BUN 16 mg/dL (9-16) 03/13/24 Creatinine 1.60 mg/dL (0.5-1.4) H 03/13/24 Calcium 9.5 mg/dL (8.4-10.2) 03/13/24 Urine Protein Negative mg/dL (Neg-Trace) 09/29/23 Urine Creatinine 166.00 mg/dL 09/29/23 Renal US 10/07/23 Assessment & Plan Assessment & Plan (1) CKD (chronic kidney disease) stage 3, GFR 30-59 ml/min: Code(s): N18.30 - Chronic kidney disease, stage 3 unspecified Category: Medical Plan: CKD in a setting of hypertension and prostate cancer. He probably has hypertensive nephrosclerosis. No obstructive uropathy based on sonogram No evidence of active glomerulonephritis or interstitial disease Since BP is low, will DISCONTINUE LISINOPRIL Continue to avoid nephrotoxic agents. Keep intake more than output. (2) Hypotension: Code(s): I95.9 - Hypotension, unspecified Category: Medical Qualifiers: Hypotension type: hypotension due to drug Qualified Code(s): I95.2 - Hypotension due to drugs Plan: DC LISINOPRIL (3) Essential hypertension: Code(s): I10 - Essential (primary) hypertension Category: Medical Plan: As sbove Continue with current antihypertensive regimen. Low-sodium diet. Maintain blood pressure less than 130/80. (4) Chronic systolic (congestive) heart failure: Code(s): I50.22 - Chronic systolic (congestive) heart failure Category: Medical Plan: Currently appears well compensated. Being followed by Dr. Horton EF in the mid range. continue current dose of Lasix Again discussed the importance of low-salt diet Orders: Orders Basic Metabolic Panel 2 Weeks I95.2 - Hypotension due to drugs, N18.30 - Chronic kidney disease, stage 3 unspecified Coding Level of Care Code Est Pt Level 4 (03468) Diagnoses CKD (chronic kidney disease) stage 3, GFR 30-59 ml/min N18.30 Hypotension due to drugs I95.2 Hypotension type: hypotension due to drug Essential hypertension I10 Chronic systolic (congestive) heart failure I50.22
== END 2024-03-19 10:38 | disposition home or self-care (01) ==
PROVIDERS: PCP Internal Medicine; Visit Provider Internal Medicine Hypertension Specialist
DX: N18.30 Chronic kidney disease, stage 3 unspecified (principal); I95.2 Hypotension due to drugs; I10 Essential (primary) hypertension; I50.22 Chronic systolic (congestive) heart failure
CPT/HCPCS: 99214

== ENCOUNTER 2024-03-19 14:01 | Outpatient (REF) | payer MEDICARE, MEDICAID, SELFPAY ==
[2024-03-19 17:06] LABS: Anion Gap 13 (12-20); Blood Urea Nitrogen 29 mg/dL (9-16); Calcium 9.2 mg/dL (8.4-10.2); Carbon Dioxide 28 mmol/L (22-29); Chloride 105 mmol/L (96-108); Estimated Glomerular Filt Rate 39; Glucose Random 75 mg/dL (60-115); Potassium 4.1 mmol/L (3.3-5.1); Sodium 142 mmol/L (135-145)
== END 2024-03-19 14:02 | disposition home or self-care (01) ==
LOC: HO.HMGCLDS 14:01
PROVIDERS: PCP Internal Medicine; Visit Provider Internal Medicine Hypertension Specialist
DX: I95.2 Hypotension due to drugs (principal); N18.30 Chronic kidney disease, stage 3 unspecified
CPT/HCPCS: 36415; 80048; 99212

== ENCOUNTER 2024-04-02 10:25 | Outpatient (AMB) | payer MEDICARE, MEDICAID, SELFPAY ==
[2024-04-02 10:26] VITALS: BP 122/72; PULSE 81; O2SAT 98; BMI 29.1
--- NOTE | 2024-04-02 10:26 | HO.NEPHOV ---
Vital Signs 04/02/24 10:26 Height 5 ft 5 in Weight 175 lb BMI 29.1 BP 122/72 Blood Pressure Location Lt brachial Position Sitting Pulse 81 Pulse Source Pulse Oximeter Pulse Oximetry (%) 98 Oxygen Delivery Method Room Air Intake Visit Reasons: 2 wk fu w/ labs/ Confirmed Health Technician Hearing Required: No Accompanied by: Daughter Allergies codeine [CODEINE] Allergy (Severe, Verified 04/02/24 10:29) Facial Swelling pineapple [PINEAPPLE] Allergy (Mild, Verified 04/02/24 10:29) RASH Pork/Porcine Containing Products [PORK/PORCINE CONTAINING PRODUCTS] Allergy (Mild, Verified 04/02/24 10:29) ABDOMINAL PAIN, VOMITING HPI Comments Details: 77-year-old man with a history of hypertension and dementia was found to have CKD. In July 2023 he had PAXTON with a creatinine of 2.2. Subsequently creatinine improved to 1.36 mg/dL. He was accompanied by his family was able to translate. Patient has dementia and is a poor historian. All information was obtained from family. 04/02/24 Lisinopril was stopped in February 2024 due to low BP Doing well [facility] Medical History CKD (chronic kidney disease) stage 3, GFR 30-59 ml/min Obesity (BMI 30-39.9) Other and unspecified hyperlipidemia Essential hypertension LBBB (left bundle branch block) Umbilical hernia Gallstone Cholelithiasis GERD (gastroesophageal reflux disease) Urinary incontinence Lumbar degenerative disc disease Leg edema BPH (benign prostatic hyperplasia) Pure hypercholesterolemia Essential hypertension Prostate CA Stroke Surgical History H/O radical prostatectomy Hx of appendectomy S/P TURP History of inguinal hernia repair History of colonoscopy History of elbow surgery Family History Father Medical history unknown Mother Alcoholic cirrhosis CVD (cardiovascular disease) Brother Prostate cancer Maternal Uncle Prostate cancer Brother Muscular dystrophy Sister Asthma CAD (coronary artery disease) Social History Household Members: None Housing: Apartment Are you a primary home health care case manager to a significant other at home: No Do you presently have 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) Alcohol intake: current Alcohol intake frequency: holidays/special occasions only Alcohol type: beer Patient Tobacco Use Status: Never used Tobacco e-Cigarette/Vaping Use: Never Used Second Hand Smoke Exposure: No service: No Current occupational status: disabled Cognitive needs: Yes Hearing needs: No Vision needs: No Physical Exam Vital Signs: Last Vital Signs Pulse 81 04/02/24 10:26 BP 122/72 04/02/24 10:26 Pulse Ox 98 04/02/24 10:26 Oxygen Delivery Method Room Air 04/02/24 10:26 BMI result Body Mass Index 29.1 Const General: comfortable Nutritional Appearance: well nourished Orientation/consciousness: patient oriented x3 HEENT Head: No normal to inspection Mouth: moist mucous membranes Neck Neck: Yes supple and Yes no JVD Resp Auscultation: clear to auscultation bilaterally, no rales and rub present Cardio Jugular venous distension: no JVD Palpation: no palpable S3 and no palpable S4 Heart sounds: no rubs GI Palpation (GI): Soft to palpation and nontender Percussion: No Fluid wave present General: Yes no CVA tenderness Back/Spine/Pelvis Back: no CVA tenderness Skin General skin exam: no rashes or lesions noted Neuro General: patient oriented x3 Extrem General: Yes no pedal edema and No clubbing Results Reviewed Nephrology Results: Hgb 13.2 g/dl (14.0-18.0) L 12/19/23 WBC 6.5 X10*3/uL (4.8-10.8) 12/19/23 Plt Count 226 X10*3/uL (160-400) 12/19/23 Sodium 142 mmol/L (135-145) 03/19/24 Potassium 4.1 mmol/L (3.3-5.1) 03/19/24 Chloride 105 mmol/L (96-108) 03/19/24 Carbon Dioxide 28 mmol/L (22-29) 03/19/24 BUN 29 mg/dL (9-16) H 03/19/24 Creatinine 1.70 mg/dL (0.5-1.4) H 03/19/24 Calcium 9.2 mg/dL (8.4-10.2) 03/19/24 Assessment & Plan Assessment & Plan (1) CKD (chronic kidney disease) stage 3, GFR 30-59 ml/min: Code(s): N18.30 - Chronic kidney disease, stage 3 unspecified Category: Medical Plan: CKD in a setting of hypertension and prostate cancer. He probably has hypertensive nephrosclerosis. No obstructive uropathy based on sonogram No evidence of active glomerulonephritis or interstitial disease Since BP was low, LISINOPRIL was stopepd in February 2024 BP is acceptable now Repeat labs ordered for today Continue to avoid nephrotoxic agents. Keep intake more than output. (2) Hypotension: Code(s): I95.9 - Hypotension, unspecified Category: Medical Qualifiers: Hypotension type: hypotension due to drug Qualified Code(s): I95.2 - Hypotension due to drugs Plan: Resolved after stopping LISINOPRIL (3) Essential hypertension: Code(s): I10 - Essential (primary) hypertension Category: Medical Plan: As above Continue with current antihypertensive regimen. Low-sodium diet. Maintain blood pressure less than 130/80. (4) Chronic systolic (congestive) heart failure: Code(s): I50.22 - Chronic systolic (congestive) heart failure Category: Medical Plan: Currently appears well compensated. Being followed by Dr. Horton EF in the mid range. continue current dose of Lasix Again discussed the importance of low-salt diet Orders: Orders Basic Metabolic Panel Today N18.30 - Chronic kidney disease, stage 3 unspecified Coding Level of Care Code Est Pt Level 4 (67144) Diagnoses CKD (chronic kidney disease) stage 3, GFR 30-59 ml/min N18.30 Hypotension due to drugs I95.2 Hypotension type: hypotension due to drug Essential hypertension I10 Chronic systolic (congestive) heart failure I50.22
== END 2024-04-02 10:43 | disposition home or self-care (01) ==
PROVIDERS: PCP Internal Medicine; Visit Provider Internal Medicine Hypertension Specialist
DX: N18.30 Chronic kidney disease, stage 3 unspecified (principal); I95.2 Hypotension due to drugs; I10 Essential (primary) hypertension; I50.22 Chronic systolic (congestive) heart failure
CPT/HCPCS: 99214

== ENCOUNTER → 2024-04-02 10:25 | Outpatient (BNVA) | payer MEDICARE, MEDICAID, SELFPAY | PROVIDERS: PCP Internal Medicine; Visit Provider Internal Medicine Hypertension Specialist | DX: I13.0 Hypertensive heart and chronic kidney disease with heart failure and stage 1 through stage 4 chronic kidney disease, or unspecified chronic kidney disease (principal); I50.22 Chronic systolic (congestive) heart failure; I95.2 Hypotension due to drugs | CPT/HCPCS: 99212 ==

== ENCOUNTER 2024-04-06 15:00 | Outpatient (REF) | payer MEDICARE, MEDICAID, SELFPAY ==
[2024-04-06 16:38] LABS: Anion Gap 15 (12-20); Blood Urea Nitrogen 18 mg/dL (9-16); Calcium 9.6 mg/dL (8.4-10.2); Carbon Dioxide 26 mmol/L (22-29); Chloride 105 mmol/L (96-108); Estimated Glomerular Filt Rate 53; Glucose Random 81 mg/dL (60-115); Potassium 4.1 mmol/L (3.3-5.1); Sodium 142 mmol/L (135-145)
== END 2024-04-06 15:01 | disposition home or self-care (01) ==
LOC: HO.HMGCLDS 15:00
PROVIDERS: PCP Internal Medicine; Visit Provider Internal Medicine Hypertension Specialist
DX: N18.30 Chronic kidney disease, stage 3 unspecified (principal)
CPT/HCPCS: 36415; 80048

== ENCOUNTER 2024-04-20 13:32 | Outpatient (REF) | payer MEDICARE, MEDICAID, SELFPAY ==
[2024-04-20 16:34] LABS: Appearance Urine Clear; Color Urine Yellow; Glucose Urine UA Negative (Negative); Leukocyte Esterase Urine Negative (Negative); Nitrite Urine Negative (Negative); Specific Gravity - Urine 1.015 (1.005-1.025); Urine Blood Negative (Negative); Urine Ketones Negative (Negative); Urine Protein Negative (Neg-Trace)
[2024-04-20 16:37] LABS: Bacteria Urine None Seen (None Seen); Hyaline Casts Urine 0-2 /LPF (0-2); RBC Urine 0-2 /HPF (0-2); Squamous Epithelial Cell Urine 0-2 /HPF (0-2); WBC Urine 0-5 /HPF (0-5)
== END 2024-04-20 13:33 | disposition home or self-care (01) ==
LOC: HO.HMGCLDS 13:32
PROVIDERS: PCP Internal Medicine; Visit Provider Urology
DX: N40.1 Benign prostatic hyperplasia with lower urinary tract symptoms (principal); R32 Unspecified urinary incontinence; C61 Malignant neoplasm of prostate
CPT/HCPCS: 81001; 87086

== ENCOUNTER 2024-05-04 08:59 | Emergency (ER) | payer MEDICARE, MEDICAID, SELFPAY ==
--- NOTE | ~2024-05-04 | CT_ITS ---
EXAMINATION: CT CHEST WITHOUT CONTRAST CLINICAL INFORMATION: Trauma. Fall. Pain. COMPARISON: Previous chest CTA July 2023 TECHNIQUE: Multidetector volumetric CT imaging of the chest was done. Axial MIP volume rendering provided. Sagittal and coronal reformatted images were obtained. This CT examination was performed using dose optimization techniques as appropriate, variously including the following: *Automated exposure control *Adjustment of mA and/or kV according to patient size (this includes techniques or standardized protocols for targeted exams where dose is matched to indication/reason for exam; i.e. extremities or head) *Use of iterative reconstruction technique DLP: 435 mGy-cm FINDINGS: LUNGS: Dependent atelectasis at the lung bases. 6 mm calcified left lower lobe nodule suggestive of a calcified granuloma. Small 1 cm cyst in the left upper lobe. MEDIASTINUM: Normal heart size. No pericardial effusion. Slightly tortuous thoracic aorta. No enlarged hilar or mediastinal lymph nodes. CORONARY ARTERY CALCIFICATION: None visualized on this study. PLEURA: There is no pleural effusion. No pneumothorax. No pleural mass or thickening. AXILLA: No lymphadenopathy. UPPER ABDOMEN: Unremarkable. OSSEOUS STRUCTURES: Degenerative changes of the spine. CT/CT chest wo IV con IMPRESSION: No acute posttraumatic findings. Fleischner guidelines were followed.
--- NOTE | ~2024-05-04 | CT_ITS ---
EXAMINATION: CT CERVICAL SPINE WITHOUT CONTRAST CLINICAL INFORMATION: Fall. Pain. COMPARISON: None available. TECHNIQUE: Axial images through the cervical spine without contrast. Sagittal and coronal reconstructions. This CT examination was performed using dose optimization techniques as appropriate, variously including the following: *Automated exposure control *Adjustment of mA and/or kV according to patient size (this includes techniques or standardized protocols for targeted exams where dose is matched to indication/reason for exam; i.e. extremities or head) *Use of iterative reconstruction technique DLP: 398 mGy-cm FINDINGS: Bone alignment is normal. No fracture or dislocation. Severe degenerative spondylosis with large bridging vertebral body bony osteophytes from C5-C6 to T1-T2. Marked disc space narrowing at C6-C7 and C7-T1. Multilevel bilateral facet arthritis. Degenerative changes at the C1 dens articulation. Soft tissue ossifications posterior to the C5 - T1 spinous processes suggestive of evidence of trauma. Normal prevertebral soft tissues. Bilateral carotid calcification. Judi the lung apices are clear. CT/CT cervical spine wo IV con IMPRESSION: Severe degenerative changes. No acute fracture or dislocation. Fleischner guidelines were followed.
--- NOTE | ~2024-05-04 | CT_ITS ---
EXAMINATION: CT LUMBAR SPINE WITHOUT CONTRAST CLINICAL INFORMATION: Fall. Pain. COMPARISON: None available. TECHNIQUE: Axial images through the lumbar spine. Sagittal and coronal reconstructions. This CT examination was performed using dose optimization techniques as appropriate, variously including the following: *Automated exposure control *Adjustment of mA and/or kV according to patient size (this includes techniques or standardized protocols for targeted exams where dose is matched to indication/reason for exam; i.e. extremities or head) *Use of iterative reconstruction technique DLP; 633 mGy-cm FINDINGS: There are small benign-appearing lytic lesions in the right iliac bone. These are stable compared to old abdominal and pelvic CT of from 2017. Bone alignment is normal. No fracture or dislocation. At L1-L2 no disc herniation. Is mild bilateral facet arthritis. At L2-L3 there is mild diffuse disc bulge. There is mild spinal stenosis due to disc bulge, short pedicles and facet arthritis. At L3-L4 there is diffuse disc bulge. There is moderate spinal stenosis due to disc bulge, short pedicles and facet arthritis. At L4-L5 there is diffuse disc bulge. There is moderate secondary spinal stenosis due to disc bulge, short pedicles and facet arthritis. At L5-S1 there is a right paracentral small disc herniation. This appears partially calcified. This abuts the thecal sac and right L5-S1 nerve root in the lateral recess. There is mild spinal stenosis due to disc, short pedicles and facet arthritis. Small nonobstructing left lower pole renal stone. The gallbladder is been removed. CT/CT lumbar spine wo IV con IMPRESSION: No fracture or dislocation. Multilevel disc bulge and secondary spinal stenosis greatest at L3-L4 and L4-L5. Small right paracentral disc herniation at L5-S1.
--- NOTE | ~2024-05-04 | CT_ITS ---
EXAMINATION: CT HEAD WITHOUT CONTRAST CLINICAL INFORMATION: Fall. Pain. COMPARISON: Previous head CT July 2023 TECHNIQUE: Contiguous axial imaging was performed from the skull base to vertex without intravenous administration of contrast. This CT examination was performed using dose optimization techniques as appropriate, variously including the following: *Automated exposure control *Adjustment of mA and/or kV according to patient size (this includes techniques or standardized protocols for targeted exams where dose is matched to indication/reason for exam; i.e. extremities or head) *Use of iterative reconstruction technique DLP: 843 mGy-cm FINDINGS: There is no evidence of an extra-axial collection. There is no evidence of intra or extra-axial hemorrhage. Ventricles and extra-axial CSF spaces are prominent suggestive of generalized atrophy. There is nonspecific periventricular white matter disease. No mass, mass effect or infarct. No skull fracture. There is under aeration of the right mastoid air cells. There is increasing small amount of soft tissue opacification of the left mastoid air cells new rom previous exam. Minimal soft tissue opacification in the floor of the left maxillary sinus. Middle ears and visualized sinuses are clear. CT/CT head/brain wo IV con IMPRESSION: Generalized atrophy and nonspecific periventricular white matter disease. New small amount of fluid in the left mastoid air cells.
[2024-05-04 09:08] VITALS: BP 138/80; BP 159/89; PULSE 65; PULSE 67; RESP 16; TEMP 37.1; O2SAT 94; O2SAT 96; BMI 26.5
--- NOTE | 2024-05-04 09:10 | ED_ITS ---
HPI - General Adult General Chief complaint: Fall Stated complaint: UNWITT FALL W/BACK PAIN Time Seen by Provider: 05/04/24 09:10 Source: patient, family (patient's daughter) and EMS Mode of arrival: EMS Limitations: no limitations History of Present Illness ED Provider: Pina Gary PA-C HPI narrative: Patient is a 78 year old assigned male at with a history of HF, CKD, HTN, GERD, HLD, dementia, and lumbar degenerative disc disease presenting to the emergency department today with mid back pain after an unwitnessed fall. Patient's daughter states that the patient has dementia at baseline and lives alone. Patient's daughter states that the patient was found at home this morning on the floor. Patient's daughter states that the patient's house was extremely disorganized with a metal cup of coffee in the microwave. Patient denies any dizziness, lightheadedness, abdominal pain, nausea, vomiting, fever, chills, blurry vision, double vision, loss of vision, chest pain, difficulty breathing, shortness of breath, night sweats, pain with urination, increased urinary frequency, increased urinary urgency, blood in his urine or stool, syncope or a near syncopal episode, bowel incontinence, bladder incontinence, or any other complaints at this time. Relieving factors: none Exacerbating factors: none Treatments prior to arrival: none Related Data Home Medications ?Medication ?Instructions ?Recorded ?Confirmed memantine 5 mg tablet 5 mg PO BID 07/27/23 02/14/24 aspirin 81 mg tablet,delayed 81 mg PO DAILY 02/14/24 02/14/24 release (Adult Low Dose Aspirin) furosemide 20 mg tablet 40 mg PO DAILY 03/19/24 mecobalamin (vitamin B12) 500 mcg mcg PO 03/19/24 chewable tablet omeprazole 20 mg capsule,delayed 20 mg PO DAILY PRN 03/19/24 release Previous Rx's ?Medication ?Instructions ?Recorded atorvastatin 40 mg tablet 40 mg PO DAILY 90 days #90 tabs 05/04/23 acetaminophen 325 mg tablet 650 mg (2 x 325 mg) PO Q6H PRN 07/29/23 Pain, Mild (Pain Scale 1-3) #30 tabs levetiracetam 500 mg tablet 500 mg PO BID #60 tabs 07/29/23 Shower Chair #1 ea 08/15/23 miscellaneous medical supply #1 ea 08/18/23 (Blood Pressure Cuff) tamsulosin 0.4 mg capsule 0.4 mg PO DAILY 90 days #90 caps 01/12/24 cholecalciferol (vitamin D3) 50 50 mcg PO DAILY 90 days #90 caps 04/14/24 mcg (2,000 unit) capsule (Vitamin D3) Allergies Allergy/AdvReac Type Severity Reaction Status Date / Time codeine [CODEINE] Allergy Severe Facial Verified 04/02/24 10:29 Swelling pineapple [PINEAPPLE] Allergy Mild RASH Verified 05/04/24 09:12 Pork/Porcine Containing Allergy Mild ABDOMINAL Verified 04/02/24 10:29 Products PAIN, [PORK/PORCINE CONTAINING VOMITING PRODUCTS] Review of Systems 2 Constitutional: Constitutional: Reports no additional constitutional complaints, Denies chills, Denies fever(s) and Denies night sweats Eyes: Eyes: Reports no additional eye complaints, Denies blurry vision, Denies change in vision, Denies diplopia, Denies eye discharge, Denies loss of vision and Denies eye pain ENT: Denies dizziness Cardiovascular: Cardiovascular: Reports no additional cardiovascular complaints, Denies chest pain, Denies lightheadedness, Denies Loss of Consciousness and Denies dyspnea Respiratory: Respiratory: Reports no additional respiratory complaints and Denies dyspnea Gastrointestinal: Gastrointestinal: Reports no additional gastrointestinal complaints, Denies abdominal pain, Denies melena, Denies hematochezia, Denies change in bowel habits and Denies change in stool character Genitourinary: Genitourinary: Reports no additional male genitourinary complaints, Denies hematuria, Denies oliguria, Denies difficulty urinating, Denies dysuria, Denies urinary frequency, Denies urinary hesitancy, Denies urinary incontinence and Denies urinary urgency Musculoskeletal: Musculoskeletal: Reports no additional musculoskeletal complaints, Reports back pain, Denies numbness and Denies tingling Neurologic: Denies dizziness, Denies loss of vision, Denies numbness and Denies tingling Psychiatric: Psychiatric: Reports no additional psychiatric complaints Endocrine: Endocrine: Reports no additional endocrine complaints Hematologic/Lymphatic: Hematologic/Lymphatic: Reports no additional hematologic/lymphatic complaints Allergic/Immunologic: Allergic/Immunologic: Reports no additional allergic/immunologic complaints PMFSH Past Medical History Attestation statement: The following information was validated with the patient. (all information validated with the patient's daughter) Source: old records reviewed, obtained from family (patient's daughter provided additional history and confirmed the history provided by the patient.) and nursing notes reviewed Medical History CKD (chronic kidney disease) stage 3, GFR 30-59 ml/min Obesity (BMI 30-39.9) Other and unspecified hyperlipidemia Essential hypertension LBBB (left bundle branch block) Umbilical hernia Gallstone Cholelithiasis GERD (gastroesophageal reflux disease) Urinary incontinence Lumbar degenerative disc disease Leg edema BPH (benign prostatic hyperplasia) Pure hypercholesterolemia Essential hypertension Prostate CA Stroke Surgical History H/O radical prostatectomy Hx of appendectomy S/P TURP History of inguinal hernia repair History of colonoscopy History of elbow surgery Family History Family History Father Medical history unknown Mother Alcoholic cirrhosis CVD (cardiovascular disease) Brother Prostate cancer Maternal Uncle Prostate cancer Brother Muscular dystrophy Sister Asthma CAD (coronary artery disease) Social History Social History Household Members: None Housing: Apartment Are you a primary animal caregiver to a significant other at home: No Do you presently have 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) Alcohol intake: current Alcohol intake frequency: holidays/special occasions only Alcohol type: beer Patient Tobacco Use Status: Never used Tobacco Smoked in Last 30 Days: No e-Cigarette/Vaping Use: Never Used Second Hand Smoke Exposure: No Use of substances other than those prescribed or required for medical reasons: No Advance Directives: Yes Advance Directives on File: Yes Advance Directives Date on File: 03/20/24 service: No Current occupational status: disabled Cognitive needs: Yes Hearing needs: No Vision needs: No Physical Exam ED Vital Signs: Vital Signs - 24 hr 05/04/24 09:08 05/04/24 10:43 05/04/24 13:00 Temperature 98.7 F 97.7 F Pulse Rate 67 62 62 Respiratory Rate 16 16 Blood Pressure 159/89 H 159/79 H 159/79 H Pulse Oximetry 96 100 100 Oxygen Delivery Method Room Air Room Air BMI result Body Mass Index 26.5 Const General: cooperative, no acute distress, alert and awake Nutritional Appearance: well nourished Orientation/consciousness: oriented to person Limitations: no limitations HENMT Head: Yes normal to inspection and Yes atraumatic Ears: hearing grossly normal bilaterally and external ears normal General nose exam: Normal external nose present, no nasal discharge noted and no epistaxis Face and sinus: Yes normal facial exam, No abrasion and No laceration Mouth: Normal oral and palatal mucosa present, no drooling and no muffled voice Eyes General: appearance normal, both eyes and all related structures Periorbital: periorbital findings normal Eyelids: Yes eyelids normal Conjunctivae: conjunctivae normal Pupils: Equal, round and reactive pupils present EOM: EOMs intact bilaterally Neck Neck: Yes normal visual inspection, Yes full ROM and Yes no lymphadenopathy Chest Chest palpation & inspection: normal inspection of the chest Resp Effort & Inspection: normal respiratory effort and able to speak in complete sentences GI Inspection: Yes normal to inspection Neuro General: oriented to person and moves all extremities Cranial nerves: Yes Equal, round and reactive pupils present Extrem General: Yes normal to inspection, Yes full ROM and Yes capillary refill normal Psych Appearance: grossly normal Mental Status: mental status grossly normal Affect: normal affect Attitude: cooperative Thought process: Normal thought process present Thought content: Normal thought content present Insight: Good insight present (Psych) Medical Decision Making Medical Decision Making MDM Narrative: Patient is a 78 year old assigned male at with a history of HF, CKD, HTN, GERD, HLD, dementia, and lumbar degenerative disc disease presenting to the emergency department today with back pain after a possible fall. Patient's physical exam was consistent with his baseline. Patient's blood work was unremarkable. Patient's urine showed no acute process. Patient's EKG was unremarkable. Patient's chest, head, c-spine, and lumbar spine CTs showed no acute process. I explained my physical exam findings as well as all test results to the patient and the patient's daughter. I answered all questions asked by the patient and the patient's daughter. Patient's daughter expressed concern that the patient should no longer be living alone and needs either more assistance or placed somewhere. Physical therapy and case management consult placed. Physician observation began. Differential Diagnosis Differential Diagnoses: The differential diagnosis associated with the presentation includes Fall UTI Failure to thrive Cognitive decline Admission/Observation Consideration of admission/observation: Escalation of care including admission/observation considered Patient would have been admitted to the hospital had his work up had any findings where hospital admission was appropriate and his clinical presentation warranted hospital admission. Lab Data [facility] Lab Attestation statement: I reviewed the patient's lab results. My interpretation of these results are in the [facility] Rationale portion of this note. 05/04/24 09:21 05/04/24 09:21 Labs: Lab Results 05/04/24 05/04/24 Range/Units 09:21 12:43 WBC 10.6 (4.8-10.8) X10*3/uL RBC 5.26 (4.60-5.80) X10*6/uL Hgb 13.9 L (14.0-18.0) g/dl Hct 41.7 L (42.0-52.0) % MCV 79.3 L (80.0-98.0) fL MCH 26.4 L (27.0-33.0) pg MCHC 33.3 (31.0-36.0) g/dl RDW 16.2 H (11.0-16.0) % Plt Count 215 (160-400) X10*3/uL MPV 10.4 (9.4-12.4) fL Immature Gran % (Auto) 0.4 (0.0-0.4) % Neut % (Auto) 78.8 H (45-73) % Lymph % (Auto) 10.7 L (20-40) % [place] % (Auto) 9.4 (2-11) % Eos % (Auto) 0.1 (0-4) % Baso % (Auto) 0.6 (0-2) % Lymph # (Auto) 1.1 L (1.2-4.9) X10*3/uL [place] # (Auto) 1.0 (0.1-1.2) X10*3/uL Eos # (Auto) 0.0 (0.0-0.4) X10*3/uL Baso # (Auto) 0.1 (0.0-0.2) X10*3/uL Abs Immat Gran (auto) 0.04 H (0.00-0.03) X10*3/uL Absolute Neuts (auto) 8.3 (2.0-8.3) x10*3/uL Absolute Nucleated RBC 0.000 (0.0-0.012) X10*3/uL Nucleated RBC % (auto) 0.0 (0.0-0.2) /100WBC PT 14.2 H (11.1-13.3) SEC INR 1.2 H (0.9-1.1) APTT 26.5 (26.0-36.8) SEC Sodium 140 (135-145) mmol/L Potassium 4.7 (3.3-5.1) mmol/L Chloride 103 (96-108) mmol/L Carbon Dioxide 26 (22-29) mmol/L Anion Gap 16 (12-20) BUN 18 H (9-16) mg/dL Creatinine 1.40 (0.5-1.4) mg/dL Estim Creat Clear Calc 40.6 Estimated GFR 49 Random Glucose 82 (60-115) mg/dL Calcium 9.4 (8.4-10.2) mg/dL Magnesium 2.1 (1.6-2.6) mg/dL Total Bilirubin 1.4 H (0.0-1.0) mg/dL AST 26 (5-37) U/L ALT 27 (0-40) U/L Alkaline Phosphatase 83 (39-117) U/L Troponin I High Sens 11.0 (<3.5-35.0) ng/L Total Protein 6.9 (6.5-8.0) g/dL Albumin 3.9 (3.5-5.0) g/dL Urine Color Yellow Urine Appearance Clear Urine pH >= 9.0 (5.0-9.0) Ur Specific [place] 1.020 (1.005-1.025) Urine Protein Trace (Neg-Trace) mg/dL Urine Glucose (UA) Negative (Negative) mg/dL Urine Ketones 15 (Negative) mg/dL Urine Blood Negative (Negative) Urine Nitrite Negative (Negative) Ur Leukocyte Esterase Negative (Negative) COVID-19 (RAUL) Negative (Negative) COVID-19 Clin Com See Note Independent Interpretation I performed an independent interpretation of an: EKG and CT Scan Interpretation: My interpretation is in agreement with the radiologist's impression of these imaging studies. - EXAMINATION: CT CERVICAL SPINE WITHOUT CONTRAST CLINICAL INFORMATION: Fall. Pain. COMPARISON: None available. TECHNIQUE: Axial images through the cervical spine without contrast. Sagittal and coronal reconstructions. This CT examination was performed using dose optimization techniques as appropriate, variously including the following: *Automated exposure control *Adjustment of mA and/or kV according to patient size (this includes techniques or standardized protocols for targeted exams where dose is matched to indication/reason for exam; i.e. extremities or head) *Use of iterative reconstruction technique DLP: 398 mGy-cm FINDINGS: Bone alignment is normal. No fracture or dislocation. Severe degenerative spondylosis with large bridging vertebral body bony osteophytes from C5-C6 to T1-T2. Marked disc space narrowing at C6-C7 and C7-T1. Multilevel bilateral facet arthritis. Degenerative changes at the C1 dens articulation. Soft tissue ossifications posterior to the C5 - T1 spinous processes suggestive of evidence of trauma. Normal prevertebral soft tissues. Bilateral carotid calcification. Judi the lung apices are clear. CT/CT cervical spine wo IV con IMPRESSION: Severe degenerative changes. No acute fracture or dislocation. Fleischner guidelines were followed. Dictated By: Janey Spears MD Signed By: Electronically signed by Janey Spears MD 05/04/24 1132 - EXAMINATION: CT CHEST WITHOUT CONTRAST CLINICAL INFORMATION: Trauma. Fall. Pain. COMPARISON: Previous chest CTA July 2023 TECHNIQUE: Multidetector volumetric CT imaging of the chest was done. Axial MIP volume rendering provided. Sagittal and coronal reformatted images were obtained. This CT examination was performed using dose optimization techniques as appropriate, variously including the following: *Automated exposure control *Adjustment of mA and/or kV according to patient size (this includes techniques or standardized protocols for targeted exams where dose is matched to indication/reason for exam; i.e. extremities or head) *Use of iterative reconstruction technique DLP: 435 mGy-cm FINDINGS: LUNGS: Dependent atelectasis at the lung bases. 6 mm calcified left lower lobe nodule suggestive of a calcified granuloma. Small 1 cm cyst in the left upper lobe. MEDIASTINUM: Normal heart size. No pericardial effusion. Slightly tortuous thoracic aorta. No enlarged hilar or mediastinal lymph nodes. CORONARY ARTERY CALCIFICATION: None visualized on this study. PLEURA: There is no pleural effusion. No pneumothorax. No pleural mass or thickening. AXILLA: No lymphadenopathy. UPPER ABDOMEN: Unremarkable. OSSEOUS STRUCTURES: Degenerative changes of the spine. CT/CT chest wo IV con IMPRESSION: No acute posttraumatic findings. Fleischner guidelines were followed. Dictated By: Janey Spears MD Signed By: Electronically signed by Janey Spears MD 05/04/24 1135 - EXAMINATION: CT HEAD WITHOUT CONTRAST CLINICAL INFORMATION: Fall. Pain. COMPARISON: Previous head CT July 2023 TECHNIQUE: Contiguous axial imaging was performed from the skull base to vertex without intravenous administration of contrast. This CT examination was performed using dose optimization techniques as appropriate, variously including the following: *Automated exposure control *Adjustment of mA and/or kV according to patient size (this includes techniques or standardized protocols for targeted exams where dose is matched to indication/reason for exam; i.e. extremities or head) *Use of iterative reconstruction technique DLP: 843 mGy-cm FINDINGS: There is no evidence of an extra-axial collection. There is no evidence of intra or extra-axial hemorrhage. Ventricles and extra-axial CSF spaces are prominent suggestive of generalized atrophy. There is nonspecific periventricular white matter disease. No mass, mass effect or infarct. No skull fracture. There is under aeration of the right mastoid air cells. There is increasing small amount of soft tissue opacification of the left mastoid air cells new rom previous exam. Minimal soft tissue opacification in the floor of the left maxillary sinus. Middle ears and visualized sinuses are clear. CT/CT head/brain wo IV con IMPRESSION: Generalized atrophy and nonspecific periventricular white matter disease. New small amount of fluid in the left mastoid air cells. Dictated By: Janey pSears MD Signed By: Electronically signed by Janey Spears MD 05/04/24 1123 - EXAMINATION: CT LUMBAR SPINE WITHOUT CONTRAST CLINICAL INFORMATION: Fall. Pain. COMPARISON: None available. TECHNIQUE: Axial images through the lumbar spine. Sagittal and coronal reconstructions. This CT examination was performed using dose optimization techniques as appropriate, variously including the following: *Automated exposure control *Adjustment of mA and/or kV according to patient size (this includes techniques or standardized protocols for targeted exams where dose is matched to indication/reason for exam; i.e. extremities or head) *Use of iterative reconstruction technique DLP; 633 mGy-cm FINDINGS: There are small benign-appearing lytic lesions in the right iliac bone. These are stable compared to old abdominal and pelvic CT of from 2017. Bone alignment is normal. No fracture or dislocation. At L1-L2 no disc herniation. Is mild bilateral facet arthritis. At L2-L3 there is mild diffuse disc bulge. There is mild spinal stenosis due to disc bulge, short pedicles and facet arthritis. At L3-L4 there is diffuse disc bulge. There is moderate spinal stenosis due to disc bulge, short pedicles and facet arthritis. At L4-L5 there is diffuse disc bulge. There is moderate secondary spinal stenosis due to disc bulge, short pedicles and facet arthritis. At L5-S1 there is a right paracentral small disc herniation. This appears partially calcified. This abuts the thecal sac and right L5-S1 nerve root in the lateral recess. There is mild spinal stenosis due to disc, short pedicles and facet arthritis. Small nonobstructing left lower pole renal stone. The gallbladder is been removed. CT/CT lumbar spine wo IV con IMPRESSION: No fracture or dislocation. Multilevel disc bulge and secondary spinal stenosis greatest at L3-L4 and L4-L5. Small right paracentral disc herniation at L5-S1. Dictated By: Janey Spears MD Signed By: Electronically signed by Janey Spears MD 05/04/24 1143 - Vent. Rate: 074 BPM Atrial Rate: 074 BPM P-R Int: 214 ms QRS Dur: 148 ms QT Int: 438 ms P-R-T Axes: 081 018 181 degrees QTc Int: 486 ms Sinus rhythm with 1st degree A-V block Left bundle branch block Abnormal ECG When compared with ECG of 27-JUL-2023 13:49, No significant change was found DD/ [id number] Radiology Impression Discussion of test interpretation with radiology: I have reviewed the radiologist's reading. Independent Historian Clinical information obtained from an independent historian. History obtained from or confirmed by: EMS (EMS provided additional history and confirmed the history provided by the patient and his daughter.) and Other (Patient's daughter provided additional history and confirmed the history provided by the patient and EMS) Chronic Conditions Patient?s care impacted by: Hypertension Critical Care Time Critical Care Time Critical Care Time: Yes Total Critical Care Time: 36 Attestation: I spent 36 minutes of Critical Care Time with this patient. This does not include time spent on separately reported billable procedures. Discharge Plan Discharge Clinical Impression: Fall, Chronic back pain, Dementia Patient Disposition: Still a Patient Prescriptions: No Action atorvastatin 40 mg tablet 40 mg PO DAILY 90 Days Qty: 90 3RF (DME) Shower Chair Misc See Rx Instructions .Route Qty: 1 0RF Rx Instructions: with back tamsulosin 0.4 mg capsule 0.4 mg PO DAILY 90 Days Qty: 90 1RF cholecalciferol (vitamin D3) [Vitamin D3] 50 mcg (2,000 unit) capsule 50 mcg PO DAILY 90 Days Qty: 90 1RF memantine 5 mg tablet 5 mg PO BID acetaminophen 325 mg Tablet 650 mg PO Q6H PRN (Reason: Pain, Mild (Pain Scale 1-3)) Qty: 30 0RF levetiracetam 500 mg Tablet 500 mg PO BID Qty: 60 0RF (DME) Blood Pressure Cuff Misc See Rx Instructions .ROUTE .MEDSUPPLY Qty: 1 0RF Rx Instructions: TEST BLOOD PREESURE ONCE PER DAY aspirin [Adult Low Dose Aspirin] 81 mg tablet,delayed release (DR/EC) 81 mg PO DAILY furosemide 20 mg tablet 40 mg PO DAILY mecobalamin (vitamin B12) 500 mcg tablet,chewable PO omeprazole 20 mg capsule,delayed release(DR/EC) 20 mg PO DAILY PRN Print Language: Citizen [place]
--- NOTE | 2024-05-04 09:13 | ECG_ITS ---
Test Reason : UN WITNESS FALL Blood Pressure : / mmHG Vent. Rate : 074 BPM Atrial Rate : 074 BPM P-R Int : 214 ms QRS Dur : 148 ms QT Int : 438 ms P-R-T Axes : 081 018 181 degrees QTc Int : 486 ms Sinus rhythm with 1st degree A-V block Left bundle branch block Abnormal ECG When compared with ECG of 27-JUL-2023 13:49, No significant change was found Referred By: Pina Gary Electronically Signed By:KAYLA ASCENCIO
[2024-05-04 09:26] LABS: MANUAL DIFF FLAG NO
[2024-05-04 09:28] LABS: Basophils Absolute Auto 0.1 X10*3/uL (0.0-0.2); Basophils Percent Auto 0.6 % (0-2); Eosinophils Percent Auto 0.1 % (0-4); Hematocrit 41.7 % (42.0-52.0); Hemoglobin 13.9 g/dl (14.0-18.0); Imm Gran Abs Auto 0.04 X10*3/uL (0.00-0.03); Imm Gran Pct Auto 0.4 % (0.0-0.4); Lymphocytes Absolute Auto 1.1 X10*3/uL (1.2-4.9); Lymphocytes Percent Auto 10.7 % (20-40); Mean Corpuscular HGB Conc 33.3 g/dl (31.0-36.0); Mean Corpuscular Hemoglobin 26.4 pg (27.0-33.0); Mean Corpuscular Volume 79.3 fL (80.0-98.0); Mean Platelet Volume 10.4 fL (9.4-12.4); Monocytes Percent Auto 9.4 % (2-11); Neutrophils Absolute Auto 8.3 x10*3/uL (2.0-8.3); Neutrophils Percent Auto 78.8 % (45-73); Platelet Count 215 X10*3/uL (160-400); Red Blood Count 5.26 X10*6/uL (4.60-5.80); Red Cell Distribution Width 16.2 % (11.0-16.0); White Blood Count 10.6 X10*3/uL (4.8-10.8)
[2024-05-04 09:33] LABS: INTERNATIONAL NORM RATIO 1.2 (0.9-1.1); Prothrombin Time 14.2 SEC (11.1-13.3)
[2024-05-04 09:36] LABS: Partial Thromboplastin Time 26.5 SEC (26.0-36.8)
[2024-05-04 09:44] LABS: Alanine Aminotransferase 27 U/L (0-40); Albumin Level 3.9 g/dL (3.5-5.0); Alkaline Phosphatase 83 U/L (39-117); Anion Gap 16 (12-20); Aspartate Amino Transferase 26 U/L (5-37); Bilirubin Total 1.4 mg/dL (0.0-1.0); Blood Urea Nitrogen 18 mg/dL (9-16); Calcium 9.4 mg/dL (8.4-10.2); Carbon Dioxide 26 mmol/L (22-29); Chloride 103 mmol/L (96-108); Creatinine Clr Calc Pharmacy 40.6; Estimated Glomerular Filt Rate 49; Glucose Random 82 mg/dL (60-115); Magnesium 2.1 mg/dL (1.6-2.6); Potassium 4.7 mmol/L (3.3-5.1); Sodium 140 mmol/L (135-145); Total Protein 6.9 g/dL (6.5-8.0)
[2024-05-04 10:43] VITALS: BP 159/79; PULSE 62; RESP 16; TEMP 36.5; O2SAT 100
[2024-05-04 12:00] VITALS: BP 163/84; PULSE 63; RESP 12; TEMP 36.7; O2SAT 97
[2024-05-04 12:52] LABS: Appearance Urine Clear; Color Urine Yellow; Glucose Urine UA Negative (Negative); Leukocyte Esterase Urine Negative (Negative); Nitrite Urine Negative (Negative); PH >= 9.0 (5.0-9.0); Urine Blood Negative (Negative); Urine Ketones 15 mg/dL (Negative); Urine Protein Trace mg/dL (Neg-Trace)
[2024-05-04 13:00] VITALS: BP 159/79; PULSE 62; O2SAT 100
[2024-05-04 13:04] LABS: IDNOW Serial# 08D9AD1C
[2024-05-04 13:05] LABS: COVID-19 Test Negative (Negative)
--- NOTE | 2024-05-04 14:19 | MHC.CM.ED ---
Addendum entered by Celia Richards 05/04/24 15:50: [facility] does not have a bed to offer. Day [facility], [facility] and [facility] are able to offer a bed. These options were discussed with Jessica. Jessica does not want to accept the beds at [facility] and [facility] due to previous bad experiences. Evan will look into [facility] and get back to . [facility]. MDS completed but not sent at this time. Anticipate patient will be here over the weekend. Original Note: Received case management consult from Pina JENNINGS. Patient fell at home today. Physical therapy eval completed. Short term rehab is recommended. Attempted to meet with patient in regards to discharge planning. Patient currently sleeping. Patient's daughter/HCP, Jessica at bedside. Jessica confirms patient has advanced dementia and can't be left alone. 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 PCP verified. Copy of HCP verified to be on file. Hope is that patient will go to [facility] and be able to have more help at home. Jessica verbalizes understanding that this may not be feasible and patient will have to transition to skilled nursing care. Jessica agreeable to referral being broadcasted in [place] and states the [facility] is 1st choice. Referral made via [facility]. Continue to monitor for d/c needs.
[2024-05-04 18:48] VITALS: BP 157/75; PULSE 69
[2024-05-04] MEDS: OLANZapine 5 MG TABLET PO (18:50)
--- NOTE | 2024-05-04 18:53 | PC.NURSE ---
Pt frequently attempts to get out of chair. Now also attempting to leave room insisting his wallet is somewhere here frequently. Difficult to redirect. Per daughter, wallet is at home. Pt also becoming increasingly agitated. DICK Gary made aware. PO Zyprexa ordered and given.
--- NOTE | 2024-05-04 19:32 | PC.NURSE ---
Pharmacy notified of request for medication reconciliation at 1600.
--- NOTE | 2024-05-04 19:51 | PHA.MEDREC ---
Pharmacy Consult ? Medication Reconciliation Pharmacy has completed the medication reconciliation. Spoke to patients daughter Jessica Edwards to confirm medication.
[2024-05-04] MEDS: QUEtiapine Fumarate 50 MG TABLET PO (20:36)
--- NOTE | 2024-05-04 20:49 | PC.NURSE ---
Pt continuously attempting to get oob. Agitation with redirection. DICK Gary made aware. One time Seroquel ordered and given. VMT in place. Bed alarm on. Pt now resting comfortably in bed.
--- NOTE | 2024-05-05 02:17 | PC.NURSE ---
Assumed care of patient at 2300 05/04, no attempts to get OOB, or behaviors. Provided patient with warm blankets, pt is resting comfortably in bed. VMT in place , and bed alarm on for safety, call lundberg within reach. Will continue to monitor.
--- NOTE | 2024-05-05 03:06 | MHC.EDTECH ---
Patient was trying to get out of bed because he was wet. Patient was given bed bath.
[2024-05-05 03:44] VITALS: BP 144/77; PULSE 54; RESP 18; TEMP 36.9; O2SAT 97
[2024-05-05 08:15] VITALS: BP 172/91; PULSE 60; RESP 12; TEMP 36.7; O2SAT 96
--- NOTE | 2024-05-05 10:39 | MHC.EDTECH ---
Patient ambulated twice to the restroom with minimal help.
--- NOTE | 2024-05-05 13:53 | PC.NURSE ---
Pt a/ox2, lungs CTA bilaterally, S1 and S2 heard, normoactive bowel sounds, abdomen non-distended/soft. Vss and up to date. Pt eating lunch, spouse at bedside. Awaiting rehab placement. Call lundberg within reach.
[2024-05-05 13:55] VITALS: BP 170/86; PULSE 66; RESP 18; TEMP 36.8; O2SAT 95
[2024-05-05 16:21] VITALS: BP 163/92; PULSE 60; RESP 16; TEMP 36.8; O2SAT 98
--- NOTE | 2024-05-05 19:45 | PC.NURSE ---
Assumed caer of pt. Pt hansel chaparro stretcher, frequent attempts to get up out of bed, easily redirectable, camera in room for safety. Plan to medicate with night time medications.
[2024-05-05] MEDS: Acetaminophen 325 MG TABLET 650 MG PO (21:07)
[2024-05-05] MEDS: levETIRAcetam 500 MG TABLET PO (21:08)
[2024-05-05] MEDS: Divalproex Sodium 250 MG TABLET.DR PO (21:08)
[2024-05-05] MEDS: Memantine HCl 10 MG TABLET PO (21:08)
[2024-05-06 04:46] VITALS: BP 169/86; PULSE 58; RESP 18; TEMP 36.4; O2SAT 99
--- NOTE | 2024-05-06 05:27 | PC.NURSE ---
Pt got out of bed, exit seeking, states he wants to see his . PO zyprexa ordered however pt able to be redirected back to bed at this time. Camera remains in place.
[2024-05-06] MEDS: OLANZapine 5 MG TABLET PO (06:31)
[2024-05-06] MEDS: Omeprazole 20 MG CAPSULE.DR PO (06:31)
[2024-05-06] MEDS: Acetaminophen 325 MG TABLET 650 MG PO (06:32)
--- NOTE | 2024-05-06 06:33 | PC.NURSE ---
Although pt initially redirectable, has made a number of attempts to exit bed, Zyprexa given.
[2024-05-06] MEDS: Memantine HCl 10 MG TABLET PO ×2 (08:47→20:12)
[2024-05-06] MEDS: Atorvastatin Calcium 40 MG TABLET PO (08:47)
[2024-05-06] MEDS: Cyanocobalamin (Vitamin B-12) 500 MCG TABLET PO (08:47)
[2024-05-06] MEDS: Cholecalciferol (Vitamin D3) 25 MCG TABLET 50 MCG PO (08:47)
[2024-05-06] MEDS: Tamsulosin HCL 0.4 MG CAPSULE PO (08:47)
[2024-05-06] MEDS: Aspirin Enteric Coated 81 MG TABLET.DR PO (08:47)
[2024-05-06] MEDS: lisinopriL 20 MG TABLET PO (08:47)
[2024-05-06 09:05] VITALS: BP 164/88; PULSE 56; RESP 20; TEMP 37.1; O2SAT 96
[2024-05-06] MEDS: Furosemide 40 MG TABLET PO (11:37)
[2024-05-06] MEDS: levETIRAcetam 500 MG TABLET PO ×2 (11:37→20:12)
[2024-05-06] MEDS: Divalproex Sodium 250 MG TABLET.DR PO ×2 (11:37→20:12)
[2024-05-06 12:06] VITALS: BP 135/78; PULSE 62; RESP 20; TEMP 36.6; O2SAT 95
[2024-05-06] MEDS: OLANZapine 2.5 MG TABLET PO (14:08)
--- NOTE | 2024-05-06 16:16 | MHC.EDTECH ---
Pt given bed bath with barrier cream wipes, pt given hair plate cleaner cap, pt given moisturizer, pt had no further complaints
--- NOTE | 2024-05-06 18:39 | PC.NURSE ---
Assumed care of pt at approx 0800. A&Ox1. VSS. No acute respiratory distress, respirations even and unlabored. Med and meal compliant. Camera in room, bed alarm on.
[2024-05-06] MEDS: OLANZapine ODT 10 MG TAB.RAPDIS TRANSLINGU (20:12)
[2024-05-07 06:00] VITALS: BP 137/78; PULSE 70; RESP 16; TEMP 37.1; O2SAT 96
[2024-05-07] MEDS: Omeprazole 20 MG CAPSULE.DR PO (06:12)
[2024-05-07 07:44] VITALS: BP 120/69; PULSE 66; RESP 18; TEMP 36.6; O2SAT 94
[2024-05-07] MEDS: Cholecalciferol (Vitamin D3) 25 MCG TABLET 50 MCG PO (08:15)
[2024-05-07] MEDS: Cyanocobalamin (Vitamin B-12) 500 MCG TABLET PO (08:15)
[2024-05-07] MEDS: Furosemide 40 MG TABLET PO (08:16)
[2024-05-07] MEDS: Divalproex Sodium 250 MG TABLET.DR PO (08:16)
[2024-05-07] MEDS: Tamsulosin HCL 0.4 MG CAPSULE PO (08:16)
[2024-05-07] MEDS: Atorvastatin Calcium 40 MG TABLET PO (08:16)
[2024-05-07] MEDS: lisinopriL 20 MG TABLET PO (08:16)
[2024-05-07] MEDS: Memantine HCl 10 MG TABLET PO (08:16)
[2024-05-07] MEDS: Aspirin Enteric Coated 81 MG TABLET.DR PO (08:16)
[2024-05-07] MEDS: levETIRAcetam 500 MG TABLET PO (08:16)
--- NOTE | 2024-05-07 09:22 | MHC.CM.ED ---
Addendum entered by Celia Richards 05/07/24 12:08: Patient can transport to [facility] via BLS at 130pm. Patient, son Norbert, daughter Jessica, Staci ELLISON and Rubi JENNINGS aware. Original Note: Patient remains in ER overflow. [facility] is now able to offer a bed. Spoke with Jessica via telephone at [phone]. Jessica accepts bed at [facility]. Facility made aware. MDS completed. Faxed to [facility] and sent to [facility]. [facility] before patient can transfer to facility via BLS. Continue to monitor for d/c needs.
[2024-05-07] MEDS: OLANZapine ODT 10 MG TAB.RAPDIS 5 MG TRANSLINGU (13:36)
[2024-05-07 13:52] VITALS: BP 120/69; PULSE 66; RESP 16; TEMP 36.6
== END 2024-05-07 13:53 ==
PROVIDERS: Physician Assistant Medical; Emergency Provider Emergency Medicine; PCP Internal Medicine
DX: S39.92XA Unspecified injury of lower back, initial encounter (principal); F03.911 Unspecified dementia, unspecified severity, with agitation; F05 Delirium due to known physiological condition; I13.0 Hypertensive heart and chronic kidney disease with heart failure and stage 1 through stage 4 chronic kidney disease, or unspecified chronic kidney disease; N18.30 Chronic kidney disease, stage 3 unspecified; M54.2 Cervicalgia; R51.9 Headache, unspecified; R07.89 Other chest pain; R26.81 Unsteadiness on feet; I44.7 Left bundle-branch block, unspecified; W01.0XXA Fall on same level from slipping, tripping and stumbling without subsequent striking against object, initial encounter; Y93.9 Activity, unspecified; Y92.009 Unspecified place in unspecified non-institutional (private) residence as the place of occurrence of the external cause; Y99.8 Other external cause status; Z79.899 Other long term (current) drug therapy; Z11.52 Encounter for screening for COVID-19
CPT/HCPCS: 36415; 70450; 71250; 72125; 72132; 80053; 81003; 83735; 84484; 85025; 85610; 85730; 87635; 93005; 97162; 99285

== ENCOUNTER → 2024-05-04 09:13 | Outpatient (BNV) | payer MEDICARE, MEDICAID, SELFPAY | PROVIDERS: Emergency Provider Emergency Medicine; PCP Internal Medicine; Visit Provider Internal Medicine | DX: I44.7 Left bundle-branch block, unspecified (principal); R94.31 Abnormal electrocardiogram [ECG] [EKG] | CPT/HCPCS: 93010 ==

== ENCOUNTER 2024-05-27 23:45 | Emergency (ER) | payer MEDICARE, MEDICAID, SELFPAY ==
--- NOTE | 2024-05-27 | ECG_ITS ---
Test Reason : FALL Blood Pressure : / mmHG Vent. Rate : 061 BPM Atrial Rate : 061 BPM P-R Int : 188 ms QRS Dur : 160 ms QT Int : 484 ms P-R-T Axes : 058 021 175 degrees QTc Int : 487 ms Normal sinus rhythm with sinus arrhythmia Left bundle branch block Abnormal ECG When compared with ECG of 04-MAY-2024 09:57, No significant change was found Referred By: Generic ED Physician Electronically Signed By:Neftaly Gregory
--- NOTE | ~2024-05-27 | CT_ITS ---
EXAMINATION: CT CERVICAL SPINE WITHOUT CONTRAST; UNENHANCED CT OF THE HEAD. CLINICAL INFORMATION: Head injury. Dementia. COMPARISON: CT cervical spine 05/04/2024. CT head 07/28/2023. TECHNIQUE: Routine unenhanced CT of the head with multiple coronal and sagittal reformatted images; routine unenhanced CT of the cervical spine with multiple coronal and sagittal reformatted images. This CT examination was performed using dose optimization techniques as appropriate, variously including the following: *Automated exposure control *Adjustment of mA and/or kV according to patient size (this includes techniques or standardized protocols for targeted exams where dose is matched to indication/reason for exam; i.e. extremities or head) *Use of iterative reconstruction technique DLP: 1741 mGy-cm FINDINGS: CT head: Overall moderate diffuse commensurate prominence of ventricles and sulci is noted with disproportionate prominence of the temporal horns of the lateral ventricles which may be secondary to underlying hippocampal volume loss. Findings are slightly progressed compared with 07/28/2023. No intracranial bilateral ocular lens replacements noted. No significant opacification of the visualized paranasal sinuses, mastoid air cells and middle ear cavities. CT cervical spine: Visualized lung apices are clear. No fractures or acute appearing subluxations noted. Multilevel facet hypertrophic changes present. Bridging endplate osteophytosis C6-C7. No prevertebral fluid collections or soft tissue inflammatory changes. Moderate lateral carotid bulb calcific atherosclerosis. CT/CT cervical spine wo IV con IMPRESSION: CT HEAD: 1. No acute intracranial abnormalities. 2. Moderate diffuse parenchymal volume loss the brain with disproportionate prominence of the temporal horns of the lateral ventricles which may be secondary to underlying hippocampal volume loss. Findings are slightly progressed compared with 07/28/2023. CT CERVICAL SPINE: 1. No acute abnormalities. 2. Multilevel chronic spondylosis. 3. Moderate bilateral carotid bulb calcific atherosclerosis.
[2024-05-27 23:52] VITALS: BP 106/50; PULSE 65; O2SAT 99; BMI 24.7
[2024-05-27 23:58] VITALS: BP 115/59; PULSE 59; RESP 13; TEMP 36.4; O2SAT 95
[2024-05-28 00:05] LABS: MANUAL DIFF FLAG NO
[2024-05-28 00:07] LABS: Basophils Absolute Auto 0.1 X10*3/uL (0.0-0.2); Basophils Percent Auto 1.3 % (0-2); Eosinophils Absolute Auto 0.2 X10*3/uL (0.0-0.4); Eosinophils Percent Auto 3.4 % (0-4); Hematocrit 37.7 % (42.0-52.0); Hemoglobin 12.2 g/dl (14.0-18.0); Imm Gran Abs Auto 0.02 X10*3/uL (0.00-0.03); Imm Gran Pct Auto 0.4 % (0.0-0.4); Lymphocytes Absolute Auto 1.3 X10*3/uL (1.2-4.9); Lymphocytes Percent Auto 24.1 % (20-40); Mean Corpuscular HGB Conc 32.4 g/dl (31.0-36.0); Mean Corpuscular Volume 80.2 fL (80.0-98.0); Mean Platelet Volume 10.6 fL (9.4-12.4); Monocytes Absolute Auto 0.7 X10*3/uL (0.1-1.2); Monocytes Percent Auto 13.3 % (2-11); Neutrophils Absolute Auto 3.1 x10*3/uL (2.0-8.3); Neutrophils Percent Auto 57.5 % (45-73); Platelet Count 237 X10*3/uL (160-400); Red Cell Distribution Width 16.9 % (11.0-16.0); White Blood Count 5.3 X10*3/uL (4.8-10.8)
[2024-05-28 00:21] LABS: Alanine Aminotransferase 32 U/L (0-40); Albumin Level 3.6 g/dL (3.5-5.0); Alkaline Phosphatase 83 U/L (39-117); Anion Gap 12 (12-20); Aspartate Amino Transferase 28 U/L (5-37); Bilirubin Direct 0.2 mg/dL (0.0-0.5); Bilirubin Total 0.5 mg/dL (0.0-1.0); Blood Urea Nitrogen 20 mg/dL (9-16); Calcium 8.8 mg/dL (8.4-10.2); Carbon Dioxide 27 mmol/L (22-29); Chloride 109 mmol/L (96-108); Creatinine Clr Calc Pharmacy 47.9; Estimated Glomerular Filt Rate 53; Glucose Random 112 mg/dL (60-115); Lipase 30 U/L (8-78); Potassium 3.6 mmol/L (3.3-5.1); Sodium 144 mmol/L (135-145); Total Protein 6.2 g/dL (6.5-8.0)
[2024-05-28 00:28] LABS: Troponin-I High Sensitivity 11.7 ng/L (<3.5-35.0)
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
[2024-05-28] MEDS: OLANZapine 5 MG TABLET PO (03:13)
[2024-05-28 03:26] VITALS: BP 149/70; PULSE 59; RESP 16; TEMP 36.6; O2SAT 97
--- NOTE | 2024-05-28 03:30 | MHC.EDTECH ---
THIS PCT JUST ASSUMED CARE OF PATIENT VITALS TAKEN ,PATIENT WAS INCOINIENT OF URINE CARE GIVEN AND PATIENT BELONINGS LIST DONE ,PATIENT SON AT BEDSIDE .
--- NOTE | 2024-05-28 03:31 | MHC.EDTECH ---
PATIENT IN BED RESTING .
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
[2024-05-28 06:14] VITALS: BP 125/66; PULSE 52; RESP 16; TEMP 36.7; O2SAT 98
--- NOTE | 2024-05-28 08:41 | MHC.CM.ED ---
Addendum entered by Celia Richards 05/28/24 08:59: Received return telephone call from Maria Fernanda of [facility]. Patient has been sundowning at night. Facility has been trying to work with family to help understand these dementia symptoms but has been having difficulty coping with this information. Facility would take patient back if family was agreeable but [facility] does feel patient needs a facility that is more secure than they can offer. They do not have a wander guard or locked unit. Addendum entered by Celia Richards 05/28/24 08:48: Waiting for return call from Maria Fernanda, liaison for [facility]. Original Note: Received case management consult from Dr Arce overnight. Patient has been at [facility] since 05/07/2024. Patient was brought to ER due to agitation at facility. Patient has advanced dementia. Patient is currently sleeping. Met with patient's son, Norbert, at bedside. Norbert can be reached via telephone at [phone]. Norbert doesn't feel [facility] is a good fit for patient because patient tends to pace and [facility] doesn't have a locked facility. T/W made Norbert aware that 4 facilities closed locally and placement may be difficult due to this. Also explained placement could be as far as [place] or [place]. Norbert lives in [place] and would like a referral to [facility]. Referral also broadcasted in [facility]. Will discuss any bed offers with Norbert and patient's HCP/daughter, Jessica. Continue to monitor for d/c needs.
--- NOTE | 2024-05-28 08:55 | PC.NURSE ---
Med rec completed by this RN, called [facility] and received med information directly from pts RN at facility.
--- NOTE | 2024-05-28 09:33 | PHA.MEDREC ---
Pharmacy Consult ? Medication Reconciliation Pharmacy has reviewed the medication reconciliation done by nursing, also called [facility] and spoke to Job (patient's nurse) to get direction for hydroxyzine 25 mg (q6h prn anxiety) and trazodone 25 mg (bedtime prn sleep).
--- NOTE | 2024-05-28 09:47 | PC.NURSE ---
Pt cleaned and changed, found to be incontinent of urine. Pt did eat some breakfast with assistance. Pt is alert, calm and cooperative. Report called to overflow.
[2024-05-28 11:31] LABS: Appearance Urine Clear; Color Urine Yellow; Glucose Urine UA Negative (Negative); Leukocyte Esterase Urine Negative (Negative); Nitrite Urine Negative (Negative); PH 6.5 (5.0-9.0); Specific Gravity - Urine 1.015 (1.005-1.025); Urine Blood Negative (Negative); Urine Ketones Negative (Negative); Urine Protein Negative (Neg-Trace)
--- NOTE | 2024-05-28 13:04 | MHC.CM.ED ---
Received notification from patient's son, Norbert, that the [place] Ombudsman, Ivonne, stated Day [facility] had a bed available. Referral made in [facility]. [facility] does not have a dementia bed available. [facility] also does not have a bed available. [facility] in [place] and [facility] in [place] are currently able to offer beds. Norbert was made aware of these offers. Norbert and his sister, Jessica, will be on-site around 4pm to discuss placement options. Jessica is patient's HCP and will be the person who makes the decision about placement. Continue to monitor for d/c needs.
[2024-05-28 14:54] VITALS: BP 147/67; PULSE 65; RESP 14; TEMP 36.8; O2SAT 97
--- NOTE | 2024-05-28 17:53 | MHC.EDTECH ---
Patient was set up with dinner ate 100 % drank 360 ml fluids ,patient daughter here visiting .
--- NOTE | 2024-05-28 18:35 | MHC.EDTECH ---
Patient was incontinent of urine ,care given and patient wanted to go into bed ,Patient resting watching television ,Patient family leave for the night .
--- NOTE | 2024-05-28 19:24 | MHC.CM.ED ---
CM met with patient and family. 3 children and grandson present. Pt is very pleasant, but confused. Has advanced dementia. Jessica (daughter, HCP) and Norbert (son, POA) present. Jessica works at [employer] office. Requests call at ext [phone]. Jessica is requesting that CM speak with her and with her brother, Norbert regarding plan of care. Son, Norbert will visit [facility], as they have offered a bed. There are 6 facilities in [facility] that have not responded to request for bed/ [facility] is reviewing. CM requested those facilities review clinicals to see if they can offer a bed. Family is aware and contact information for facilities was given to Jessica. CM contact card given. They do not want their father to return to [facility]. They feel he did not get good care there. They are aware that no local facilities have offered a bed. They are also aware that they can work with the social services coordinator at the facility that offers a bed to move their father to another facility closer to family. CM will speak with family tomorrow regarding plan of care. Santa notified via care port that son will visit the facility. CM will follow for discharge planning.
[2024-05-28] MEDS: hydrOXYzine HCL 25 MG TABLET PO (20:31)
[2024-05-28] MEDS: Memantine HCl 10 MG TABLET PO (20:31)
[2024-05-28] MEDS: traZODone HCL 25 MG HALFTAB PO (20:31)
[2024-05-28] MEDS: levETIRAcetam 500 MG TABLET PO (20:31)
[2024-05-28] MEDS: Divalproex Sodium 250 MG TABLET.DR PO (20:35)
[2024-05-28 21:27] VITALS: BP 159/74; PULSE 57; RESP 23; TEMP 36.4; O2SAT 99
[2024-05-29 05:53] VITALS: BP 142/74; PULSE 56; RESP 18; TEMP 36.3; O2SAT 98
[2024-05-29] MEDS: Omeprazole 20 MG CAPSULE.DR PO (06:17)
--- NOTE | 2024-05-29 06:42 | PC.NURSE ---
Patient moved to bed 3 for safety . Since then patient has been redirectable, resting/ sleeping throughout night. Vital signs stable.
--- NOTE | 2024-05-29 08:46 | MHC.CM.ED ---
Addendum entered by Celia Richards 05/29/24 10:09: Received telephone call from patient's daughter/HCP, Jessica. Jessica aware [facility] is not able to offer a bed. Jessica's brother, Norbert, will tour [facility] when he gets out of work today. Original Note: Patient remains in ER overflow. [facility] is not able to offer a bed. Family to tour [facility] today. Continue to monitor for d/c needs.
[2024-05-29 11:51] VITALS: BP 142/74
[2024-05-29] MEDS: Furosemide 40 MG TABLET PO (11:51)
[2024-05-29] MEDS: Tamsulosin HCL 0.4 MG CAPSULE PO (11:51)
[2024-05-29] MEDS: Aspirin Enteric Coated 81 MG TABLET.DR PO (11:51)
[2024-05-29] MEDS: Atorvastatin Calcium 40 MG TABLET PO (11:51)
[2024-05-29] MEDS: Cholecalciferol (Vitamin D3) 25 MCG TABLET 50 MCG PO (11:51)
[2024-05-29] MEDS: levETIRAcetam 500 MG TABLET PO ×2 (11:51→20:04)
[2024-05-29] MEDS: Memantine HCl 10 MG TABLET PO ×2 (11:51→20:04)
[2024-05-29] MEDS: Cyanocobalamin (Vitamin B-12) 500 MCG TABLET PO (11:52)
[2024-05-29] MEDS: Divalproex Sodium 250 MG TABLET.DR PO ×2 (11:52→20:04)
[2024-05-29 13:48] VITALS: BP 146/78; PULSE 69; RESP 18; TEMP 36.8; O2SAT 98
--- NOTE | 2024-05-29 16:07 | MHC.CM.ED ---
Received telephone call from patient's daughter/HCP, Jessica. Jessica's brother, Norbert now has the stomach bug and will not be able to tour [facility]. Jessica accepts bed at [facility]. However she needs another day in order to join her father at the facility to sign consents and get make sure he transitions well. Patient will leave 05/31 at 10am. Hao CONDE booked. Med [facility]. Patient, Fany Lopez RN and Alyssa JENNINGS aware. Continue to monitor for d/c needs.
[2024-05-29] MEDS: hydrOXYzine HCL 25 MG TABLET PO (18:48)
[2024-05-29] MEDS: traZODone HCL 25 MG HALFTAB PO (20:04)
--- NOTE | 2024-05-29 20:04 | PC.NURSE ---
Pt medicated per JAN including PRN trazadone.
[2024-05-29 20:06] VITALS: BP 149/84; PULSE 80; RESP 17; TEMP 37.2; O2SAT 98
[2024-05-29] MEDS: OLANZapine 5 MG TABLET PO (21:39)
--- NOTE | 2024-05-29 21:39 | PC.NURSE ---
Pt medicated per MAR with PO zyprexa for continued restlessness.
--- NOTE | 2024-05-29 22:32 | PC.NURSE ---
Pt appears less restless at this time.
[2024-05-30] VITALS: RESP 18
[2024-05-30 04:47] VITALS: BP 161/81; PULSE 69; RESP 16; TEMP 36.6; O2SAT 97
--- NOTE | 2024-05-30 09:01 | MHC.CM.ED ---
Patient remains in ER overflow. Will d/c to [facility] in [facility] on 05/31 at 10am. MDS completed. Faxed to [facility] and [facility]. Continue to monitor for d/c needs.
--- NOTE | 2024-05-30 09:18 | MHC.EDTECH ---
pt was washed up with a complete bed change
--- NOTE | 2024-05-30 09:20 | MHC.EDTECH ---
pt ate 75% breakfast
[2024-05-30] MEDS: Cholecalciferol (Vitamin D3) 25 MCG TABLET 50 MCG PO (11:42)
[2024-05-30] MEDS: Aspirin Enteric Coated 81 MG TABLET.DR PO (11:42)
[2024-05-30] MEDS: Tamsulosin HCL 0.4 MG CAPSULE PO (11:42)
[2024-05-30] MEDS: Cyanocobalamin (Vitamin B-12) 500 MCG TABLET PO (11:42)
[2024-05-30] MEDS: Divalproex Sodium 250 MG TABLET.DR PO ×2 (11:43→20:16)
[2024-05-30] MEDS: Atorvastatin Calcium 40 MG TABLET PO (11:43)
[2024-05-30] MEDS: levETIRAcetam 500 MG TABLET PO ×2 (11:43→20:16)
[2024-05-30] MEDS: Memantine HCl 10 MG TABLET PO ×2 (11:43→20:15)
[2024-05-30 11:45] VITALS: BP 158/79
[2024-05-30] MEDS: Furosemide 40 MG TABLET PO (11:45)
[2024-05-30 11:49] VITALS: PULSE 61; RESP 20; TEMP 36.8; O2SAT 97
[2024-05-30 14:00] VITALS: BP 142/74; PULSE 88; RESP 20; TEMP 37.1; O2SAT 98
--- NOTE | 2024-05-30 14:33 | MHC.EDTECH ---
pt voided 400ml
[2024-05-30] MEDS: traZODone HCL 25 MG HALFTAB PO (20:16)
[2024-05-30] MEDS: hydrOXYzine HCL 25 MG TABLET PO (20:16)
--- NOTE | 2024-05-30 20:17 | PC.NURSE ---
pt alert and confused, resting with no distress. 1:1 lieutenant general for restlessness and attempts to get OOB. Pt states he needs to go home, that his will be looking for him etc. reassurance given pt repositioned for comfort and skin. hourly rounds and safety maintianed. Video monitoring in use.
[2024-05-30 21:29] VITALS: BP 142/81; PULSE 84; RESP 18; TEMP 36.9; O2SAT 94
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
--- NOTE | 2024-05-31 00:49 | PC.NURSE ---
Pt is sleeping semi-fowlers in bed, appears comfortable and no acute distress is observed. Pt changes positions indenependly as desired. 1:1 at bedside for continued pt safety. Bed at lowest position with side rails up. Will continue to monitor for any changes.
--- NOTE | 2024-05-31 01:19 | PC.NURSE ---
Pt was found incontinent of urine. Pt gown and bed linen changed and pt boosted in bed. [place] cath reapplied with success. Pt is lying semi-fowlers and appears comfortable. Will continue to monitor.
--- NOTE | 2024-05-31 04:04 | PC.NURSE ---
Pt is sleeping in the semi-fowlers position in bed, appears comfortable, in no acute distress. [place] cath is in place and draining as expected. Pt is easy to arouse with verbal stimuli. Bed is at lowest position and call light is within reach. 1:1 at bedside for safety. Pt disposition is pending. Will continue to monitor for changes.
[2024-05-31 06:15] VITALS: BP 142/81; PULSE 71; RESP 18; TEMP 36.6; O2SAT 94
--- NOTE | 2024-05-31 06:36 | PC.NURSE ---
Pt is resting in bed, appears comfortable. Arousable with verbal stimuli. Pt changes positions independently as desired. 1:1 observation at bedside for safety. Disposition is pending, will continue to monitor for changes.
[2024-05-31] MEDS: Omeprazole 20 MG CAPSULE.DR PO (06:52)
--- NOTE | 2024-05-31 08:04 | PC.NURSE ---
Addendum entered by India Blackwell 05/31/24 09:15: medicated per the MAR, patient takes medications whole with water. awaiting EMS transport to snf. Addendum entered by India Blackwell 05/31/24 08:40: ambulated to the bathroom again and had a bowel movement this morning. Original Note: plan for discharge approx 10am today. patient ambulated to the bathroom with minimal assistance. daughter at bedside at this time.
[2024-05-31] MEDS: Memantine HCl 10 MG TABLET PO (09:09)
[2024-05-31] MEDS: Divalproex Sodium 250 MG TABLET.DR PO (09:09)
[2024-05-31] MEDS: Atorvastatin Calcium 40 MG TABLET PO (09:09)
[2024-05-31] MEDS: levETIRAcetam 500 MG TABLET PO (09:09)
[2024-05-31] MEDS: Cholecalciferol (Vitamin D3) 25 MCG TABLET 50 MCG PO (09:09)
[2024-05-31] MEDS: Tamsulosin HCL 0.4 MG CAPSULE PO (09:09)
[2024-05-31] MEDS: Furosemide 40 MG TABLET PO (09:10)
[2024-05-31] MEDS: Aspirin Enteric Coated 81 MG TABLET.DR PO (09:10)
[2024-05-31] MEDS: Cyanocobalamin (Vitamin B-12) 500 MCG TABLET PO (09:10)
[2024-05-31 10:38] VITALS: BP 142/81; PULSE 71; RESP 18; TEMP 36.6; O2SAT 94
== END 2024-05-31 10:38 ==
PROVIDERS: Emergency Provider Emergency Medicine; PCP Internal Medicine
DX: F03.90 Unspecified dementia, unspecified severity, without behavioral disturbance, psychotic disturbance, mood disturbance, and anxiety (principal); S09.90XA Unspecified injury of head, initial encounter; W18.39XA Other fall on same level, initial encounter; Y93.9 Activity, unspecified; Y92.9 Unspecified place or not applicable; Y99.9 Unspecified external cause status; I44.7 Left bundle-branch block, unspecified; I12.9 Hypertensive chronic kidney disease with stage 1 through stage 4 chronic kidney disease, or unspecified chronic kidney disease; N18.30 Chronic kidney disease, stage 3 unspecified; Z86.73 Personal history of transient ischemic attack (TIA), and cerebral infarction without residual deficits
CPT/HCPCS: 36415; 70450; 72125; 80048; 80076; 81003; 83690; 84484; 85025; 93005; 99285

== ENCOUNTER → 2024-05-27 23:54 | Outpatient (BNV) | payer MEDICARE, MEDICAID, SELFPAY | PROVIDERS: Emergency Provider Emergency Medicine; PCP Internal Medicine; Visit Provider Internal Medicine Cardiovascular Disease | DX: I44.7 Left bundle-branch block, unspecified (principal); R94.31 Abnormal electrocardiogram [ECG] [EKG] | CPT/HCPCS: 93010 ==